=== PATIENT | female | born 1975 | race Caucasian/White ===

== ENCOUNTER 2018-06-07 10:08 | Emergency (ER) | payer SELFPAY ==
[~2018-06-07] VITALS: Ht 162.6 cm; Wt 59.0 kg
[~2018-06-07 10:08] MED LIST: ACHD5005 PO; ALPR.25T PO; ALPR.5T PO; AMOX500C2 PO; ARIP10TA2 PO; CIPR500T4 PO; CIPR500T78 PO; CPR500T PO; FLUO10CA19 PO; GABA300C PO; HYDR-3583 PO; HYDR-757 PO; HYDR1TAB PO; IBUP-30 PO; METH4TAB PO; MIRT7.5T8 PO; NITR100C PO; NITR100C3 PO; ONDA-42 SL; OXYC-12 PO; PARO10TA21 PO; PRD10T; PRM25T PO; PRO AIR INH; PROM25TA14 PO; PRX20T PO; SULF1TAB38 PO; TRAZ150T42 PO; TRAZ300T3 PO; TRAZODONE PO; ZLP10T PO; no home meds
--- OUTSIDE RECORDS SUMMARY | 2018-06-07 10:13 | XMS REPORT ---
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 Name Role Phone BILLY MEDINA Unavailable PROBLEMS Type Condition ICD9-CM Code OLR32-HR Code Onset Dates Condition Status SNOMED Code Problem Screening for malignant neoplasm of the cervix V76.2 Active 857400305 Problem Unspecified breast screening V76.10 Active 025578736 Problem Screening examination for venereal disease V74.5 Active 462159979 Problem Counseling on substance use and abuse V65.42 Active 899606601 Problem Special screening examination, human papillomavirus [HPV] V73.81 Active 615554950 Problem Acute sinusitis, unspecified 461.9 Active 77675862 Problem Routine gynecological examination V72.31 Active [id number] Problem Carpal tunnel syndrome 354.0 Active 03090010 Problem Multiple and unspecified open wound of upper limb, without mention of complication 884.0 Active 08605424 Problem Obsessive-compulsive disorders 300.3 Active 376076044 Problem Major depressive disorder, recurrent episode, in partial or unspecified remission 296.35 Active 82479534 Problem Generalized anxiety disorder 300.02 Active 22985678 Problem Moderate episode of recurrent major depressive disorder F33.1 Active 039837959 Problem Carpal tunnel syndrome, bilateral upper limbs G56.03 Active 36038286 Problem Shortness of breath 786.05 Active 755104854 Problem Dysuria 788.1 Active 88767414 Problem Papanicolaou smear of cervix with low grade squamous intraepithelial lesion (LGSIL) 795.03 Active 512740409 Problem Major depressive disorder, recurrent episode, moderate 296.32 Active 62183963 Problem Major depressive disorder, recurrent episode, severe, without mention of psychotic behavior 296.33 Active 88593836 Problem ASCUS with positive high 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.9 Active 161269924 Problem Methicillin resistant Staphylococcus aureus 041.12 Active 975042139 Problem Pain in joint, shoulder region 719.41 Active 670086499 Problem Cellulitis and abscess of unspecified site 682.9 Active 380539517 Problem Disturbance of skin sensation 782.0 Active 298410890 Problem Pain in soft tissues of limb 729.5 Active 31467869 Problem Unspecified vaginitis and vulvovaginitis 616.10 Active 956242951 Problem Unspecified inflammatory disease of female pelvic organs and tissues 614.9 Active 253556513 Problem Unspecified cellulitis and abscess of finger 681.00 Active 137332293 Problem Irregular menstrual cycle 626.4 Active 02830771 ALLERGIES Substance Reaction Event Type Date Status Morphine Sulfate vomiting Drug Allergy Dec, Active ENCOUNTERS Encounter Location Date Diagnosis [place] [address] [address] Dec, Left shoulder pain, unspecified chronicity M25.512 [place] [address] [address] Mar, Carpal tunnel syndrome, bilateral upper limbs G56.03 and Moderate episode of recurrent major depressive disorder F33.1 [facility] [address] [id number] Mar, Dental examination Z01.20 [place] [address] [address] Mar, Pain in right hand M79.641 [place] [address] [place] [id number] [place] [address] Oct, [place] [address] [place] [id number] [place] [address] Aug, Pyelonephritis N12 [facility] [address] [place] [id number] [place] [address] January, [place] [address] [address] January, [facility] [address] [place] [id number] [place] [address]- [address] January, ASCUS with positive high 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.9 and Leukorrhea 623.5 [facility] [address] [address] 14 Dec, 2014 [facility] [address] [place] [id number] [place] [address]- [address] Dec, [facility] [address], [place] [address] Nov, [facility] [place] [facility] [address] [place] [id number] [place] [address]- 8[address] Nov, [facility] [address] [address] 20[address] Nov, [facility] [address] [place] [id number] [place] [address]- 0[address] Nov, [facility] [address] [place] [id number] [place] [address]- 5140 Nov, [facility] [address], [place] [address] Nov, [facility] [address], [place] [address] 112[address] Oct, [facility] [address], [place] [address] 269[address] Oct, [facility] [address], [place] [address] Oct, [facility] [place] [facility] [address], [place] [address] Oct, [facility] [place] [facility] [address], [place] [address] Oct, [facility] [place] [facility] [address], [place] [address] 17[address] Oct, [facility] [place] [facility] [address], [place] [address] 9[address] Aug, [facility] [place] [facility] [address] [id number] [place] [address] 6871 Aug, [facility] [place] [facility] [address] [id number] [place] [address] Jun, [facility] [place] [facility] [address] [id number] [place] [address] 14 Jun, 2014 [facility] [place] [facility] [address] [id number] [place] [address]- [address] Jun, [facility] [place] [facility] [address] [id number] [place] [address] 8[address] Jun, [facility] [place] [facility] [address] [id number] [place] [address] Jun, [facility] [place] [facility] [address] [id number] [place] [address]- 9388 Jun, [facility] [place] [facility] [address] [id number] [place] [address]- 2438 May, [facility] [place] [facility] [address] [id number] [place] [address]- 4780 May, [facility] [place] [facility] [address] [id number] [place] [address]- 4261 Apr, [facility] [place] [facility] [address] [id number] [place] [address]- 6469 Apr, [facility] [place] [facility] [address] [id number] [place] [address]- 1105 Mar, [facility] [place] [facility] [address] [id number] [place] [address]- 5491 Mar, [facility] [place] [facility] [address] [id number] [place] [address]- 3212 Mar, [facility] [place] [facility] [address] [id number] [place] [address] Mar, [facility] [place] [facility] [address] [id number] [place] [address]- 5440 Feb, [facility] [place] [facility] [address] [id number] [place] [address]- 8236 Feb, [facility] [place] [facility] [address] [id number] [place] [address]- 4880 January, [facility] [place] [facility] [address] [id number] [place] [address] January, [facility] [place] [facility] [address] [id number] [place] [address]- 4443 January, [facility] [place] [facility] [address] [id number] [place] [address]- 1738 January, [facility] [place] [facility] [address] [id number] [place] [address]- 4417 January, [facility] [place] [facility] [address] [id number] [place] [address]- 1384 January, [facility] [place] [facility] [address] [id number] [place] [address]- 4264 Dec, [facility] [place] [facility] [address] [id number] [place] [address]- 3199 Dec, [facility] [place] [facility] [address] [id number] [place] [address]- 8999 Nov, [facility] [place] [facility] [address] [id number] [place] [address]- 7143 Nov, [facility] [place] [facility] [address] [id number] [address]- 5[address] Oct, [facility] [place] [facility] [address] [id number] [place] [address]- 5498 Oct, [facility] [place] [facility] [address] [id number] [place] [address]- 1084 Sep, [facility] [place] [facility] [address] [id number] [place] [address]- 3415 Sep, [facility] [place] [facility] [address] [id number] [place] [address]- 7430 Sep, [facility] [address] [id number] [place] [address]- 4045 Sep, [facility] [address] [id number] [place] [address] Aug, [facility] [address] [id number] [place] [address]- 3404 Aug, [facility] [address] [id number] [place] [address]- 1348 Jul, [facility] [address] [id number] [place] [address]- 2434 Jul, [facility] [address] [id number] [place] [address]- 6626 Jun, [facility] [address] [id number] [place] [address]- 2945 May, [facility] [address] [id number] [place] [address]- 1254 Mar, [facility] [address] [id number] [place] [address]- 7210 Feb, [facility] [address] [id number] [place] [address]- 9832 Feb, [facility] [address] [id number] [place] [address]- 4327 Feb, [facility] [address] [id number] [place] [address]- 2287 January, [facility] [place] [facility] [address] [id number] [place] [address]- 2579 30 Dec, 2012 [facility] [place] [facility] [address] [id number] [id number] [address] Dec, [facility] [address] [id number] [place] [address]- 2544 Dec, [facility] [place] [facility] [address] [id number] [place] [address]- 8232 09 Dec, 2012 [facility] [address] [id number] [place] [address]- 1236 Dec, [facility] [address] [id number] [place] [address]- 4221 Nov, [facility] [place] [facility] [address] [id number] [place] [address]- 1415 14 Oct, 2012 [facility] [address] [id number] [place] [address]- 5602 Sep, [facility] [address] [id number] [place] [address]- 9826 Sep, [facility] [address] [facility] [id number] [place] [address]- 0615 Sep, [facility] [address] [id number] [place] [address]- 2662 Sep, [facility] [address] [id number] [place] [address]- 5246 Aug, [facility] [address] [id number] [place] [address]- 1645 28 Aug, 2012 [facility] [address] [facility] [id number] [place] [address]- 6646 Aug, [facility] [place] [facility] [address] [id number], [place] [address]- 99[address] 27 Aug, 2012 [facility] [place] [facility] [address] [id number] [place] [address]- 8658 26 Aug, 2012 [facility] [place] [facility] [address] [id number] [place] [address]- 8129 18 Aug, 2012 [facility] [place] [facility] [address] [facility] [id number], [place] [address]- 36[address] 18 Aug, 2012 [facility] [place] [facility] [address] [id number], [place] [address]- 2286 18 Aug, 2012 [facility] [place] [facility] [address] [id number] [place] [address]- 4641 18 Aug, 2012 [facility] [place] [facility] [address] [id number] [place] [address]- 0906 Aug, [facility] [place] [facility] [address] [facility] [id number] [place] [address]- 6436 Aug, [facility] [place] [facility] [address] [id number] [place] [address]- 6553 Aug, [facility] [place] [facility] [address] [id number] [place] [address]- 7259 Aug, [facility] [place] [facility] [address] [id number] [place] [address]- 9179 Aug, [facility] [place] [facility] [address] [place] [id number] [address]- 1210 Aug, [facility] [place] [facility] [address] [facility] [id number] [place] [address]- 1717 Aug, [facility] [place] [facility] [address] [place] [id number] [address]- 3133 Jul, [facility] [place] [facility] [address] [facility] [id number] [place] [address]- 7368 Jul, [facility] [place] [facility] [address] [facility] [id number], [place] [address]- 8640 Jul, [facility] [place] [facility] [address] [facility] [id number], [place] [address]- 3088 Jul, [facility] [place] [facility] [address] [id number] [place] [address]- 4047 Jun, [facility] [place] [facility] [address] [facility] [id number] [place] [address]- 6694 30 May, 2012 [facility] [place] [facility] [address] [facility] [id number] [place] [address] 19 May, 2012 [facility] [place] [facility] [address] [id number] [place] [address]- 1076 14 May, 2012 [facility] [place] [facility] [address] [id number] [place] [address]- 6696 13 May, 2012 [facility] [place] [facility] [address] [id number] [place] [address] 2546 11 May, 2012 [facility] [place] [facility] [address] [id number] [place] [address]- 9236 10 May, 2012 [facility] [place] [facility] [address] [id number] [place] [address] 2549 08 May, 2012 [facility] [place] [facility] [address] [id number] [place] [address]- 0023 28 Apr, 2012 [facility] [place] [facility] [address] [id number] [place] [address]- 7240 Apr, [facility] [place] [facility] [address] [id number] [place] [address]- 9516 Apr, [facility] [place] [facility] [address] [id number] [place] [address]- 1435 Apr, [facility] [place] [facility] [address] [id number] [place] [address]- 5472 Mar, [facility] [place] [facility] [address] [id number] [place] [address]- 7419 Mar, [facility] [place] [facility] [address] [id number] [place] [address]- 7405 Mar, [facility] [place] [facility] [address] [id number] [place] [address] 2548 Mar, [facility] [place] [facility] [address] [id number] [place] [address]- 3696 16 Mar, 2012 [facility] [place] [facility] [address] [id number] [place] [address]- 2546 Mar, [facility] [place] [facility] [address] [id number] [place] [address]- 8562 Mar, [facility] [address] [facility] [id number], [place] [address]- 9205 January, [facility] [address] [facility] [id number], [place] [address]- 3336 Dec, [facility] [address] [facility] [id number], [place] [address]- 69[address] Dec, IMMUNIZATIONS No Known Immunizations SOCIAL HISTORY Never Assessed REASON FOR VISIT left shoulder pain, can't lift arm x 2-3 months -- michael harding PLAN OF CARE Activity Details Follow Up prn Reason: VITAL SIGNS Height 69 in 2017-12-20 Weight 129.0 lbs 2017-12-20 Temperature 98.0 degrees Fahrenheit 2017-12-20 Heart Rate 78 bpm 2017-12-20 Respiratory Rate 20 2017-12-20 BMI 19.05 kg/m2 2017-12-20 Blood pressure systolic 110 mmHg 2017-12-20 Blood pressure diastolic 68 mmHg 2017-12-20 MEDICATIONS Medication Instructions Dosage Frequency Start Date End Date Duration Status Gabapentin 100 mg Orally BID 1 cap daily for 1 week then 1 cap BID x 1 week then 1 cap TID 12h Mar, 30 days Not-Taking Diclofenac Sodium 75 MG Orally Twice a day 1 tablet with food or milk Dec, January, 30 day(s) Active Ibuprofen 200 MG Orally every 6 hrs 1 tablet as needed 6h Not- Taking Trazodone HCl 100 MG TAKE TWO TABLETS BY MOUTH AT BEDTIME 30 Not -Taking RESULTS Name Result Date Reference Range Xray : Shoulder, Left 2 view (IN HOUSE) 2017-12-20 PROCEDURES Procedure Date Ordered Result Body Site X-RAY EXAM OF SHOULDER December 20, 2017 INSTRUCTIONS MEDICATIONS ADMINISTERED No Known Medications MEDICAL (GENERAL) HISTORY Type Description Date Medical History Spinal cord injury - cervical spine Medical History Hepatitis C Surgical History tubal ligation Surgical History Biopsy x 2 Hospitalization History Kidney infections x 2 Hospitalization History Childbirth
--- OUTSIDE RECORDS SUMMARY | 2018-06-07 10:13 | XMS REPORT ---
Author Author MIRIAM VILLANUEVA [facility] Address [address] [place] [address] Care Team Providers Care Lift Team Technician Name Role Phone MIRIAM VILLANUEVA Unavailable PROBLEMS Type Condition ICD9-CM Code MOE41-BN Code Onset Dates Condition Status SNOMED Code Problem Screening for malignant neoplasm of the cervix V76.2 Active 124933364 Problem Unspecified breast screening V76.10 Active 757460669 Problem Screening examination for venereal disease V74.5 Active 860367515 Problem Counseling on substance use and abuse V65.42 Active 653732518 Problem Special screening examination, human papillomavirus [HPV] V73.81 Active 613745161 Problem Acute sinusitis, unspecified 461.9 Active 45974255 Problem Routine gynecological examination V72.31 Active [id number] Problem Carpal tunnel syndrome 354.0 Active 53437981 Problem Multiple and unspecified open wound of upper limb, without mention of complication 884.0 Active 01569895 Problem Obsessive-compulsive disorders 300.3 Active 179024646 Problem Major depressive disorder, recurrent episode, in partial or unspecified remission 296.35 Active 85167991 Problem Generalized anxiety disorder 300.02 Active 94996490 Problem Moderate episode of recurrent major depressive disorder F33.1 Active 194693192 Problem Carpal tunnel syndrome, bilateral upper limbs G56.03 Active 16677947 Problem Shortness of breath 786.05 Active 248142893 Problem Dysuria 788.1 Active 97323768 Problem Papanicolaou smear of cervix with low grade squamous intraepithelial lesion (LGSIL) 795.03 Active 542786280 Problem Major depressive disorder, recurrent episode, moderate 296.32 Active 89582601 Problem Major depressive disorder, recurrent episode, severe, without mention of psychotic behavior 296.33 Active 84785272 Problem ASCUS with positive high 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.9 Active 921063789 Problem Methicillin resistant Staphylococcus aureus 041.12 Active 617418903 Problem Pain in joint, shoulder region 719.41 Active 284044644 Problem Cellulitis and abscess of unspecified site 682.9 Active 590127210 Problem Disturbance of skin sensation 782.0 Active 121876579 Problem Pain in soft tissues of limb 729.5 Active 96485609 Problem Unspecified vaginitis and vulvovaginitis 616.10 Active 471560119 Problem Unspecified inflammatory disease of female pelvic organs and tissues 614.9 Active 035685681 Problem Unspecified cellulitis and abscess of finger 681.00 Active 361777458 Problem Irregular menstrual cycle 626.4 Active 89955611 ALLERGIES No Information ENCOUNTERS Encounter Location Date Diagnosis [place] [id number] [place] [address]- [address] Apr, [place] [address] [address] Apr, Other infective acute otitis externa of right ear H60.391 [place] [address] [address] Dec, Left shoulder pain, unspecified chronicity M25.512 [place] [address] [address] Mar, Carpal tunnel syndrome, bilateral upper limbs G56.03 and Moderate episode of recurrent major depressive disorder F33.1 [facility] [id number] [place] [id number] Mar, Dental examination Z01.20 [place] [id number] [place] [address]- 4135 Mar, Pain in right hand M79.641 [place] [id number] [place] [address] 14174- 4331 Oct, [place] [address] [address] Aug, Pyelonephritis N12 [place] [address] [address] January, [facility] [address] [address] January, [facility] [address] [id number] [address] January, ASCUS with positive high 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.9 and Leukorrhea 623.5 [facility] [address] [facility] [id number] [address] Dec, [facility] [address] [facility] [id number] [place] [address]75- 7903 Dec, [facility] [address] [facility] [id number] [place] [address] 729[address]- 2955 Nov, [facility] [id number] [place] [address] 85350- 0621 Nov, [facility] [id number] [place] [address] 63563- 6644 Nov, [facility] [id number] [place] [address] 74060- 7042 Nov, [facility] [id number] [address] 80[address] Nov, [facility] [id number] [place] [address] 69702- 7455 Nov, [facility] [id number] [address] 0566 Oct, [facility] [address] [address]- 7958 Oct, [facility] [address] [facility] [id number], [place] [address]- 8311 Oct, [facility] [address] [address] 7[address] Oct, [facility] [address] [id number] [address] Oct, [facility] [address] [address] 5097 Oct, [facility] [place] [facility] [address] [id number] [place] [address]- 0428 Aug, [facility] [place] [facility] [address] [id number] [place] [address]- 4541 Aug, [facility] [place] [facility] [address] [id number] [place] [address]- 2460 Jun, [facility] [place] [facility] [address] [id number] [place] [address]- 7905 14 Jun, 2014 [facility] [place] [facility] [address] [id number] [place] [address]- 7640 Jun, [facility] [place] [facility] [address] [id number] [place] [address]- 4464 Jun, [facility] [place] [facility] [address] [facility] [id number] [place] [address]- 9758 Jun, [facility] [place] [facility] [address] [id number] [place] [address]- 3635 Jun, [facility] [place] [facility] [address] [id number] [place] [address]- 1993 May, [facility] [place] [facility] [address] [id number] [place] [address]- 6981 May, [facility] [place] [facility] [address] [id number] [place] [address]- 9623 Apr, [facility] [place] [facility] [address] [id number] [place] [address]- 8400 Apr, [facility] [place] [facility] [address] [id number] [place] [address]- 0193 Mar, [facility] [place] [facility] [address] [id number] [place] [address]- 3727 Mar, [facility] [place] [facility] [address] [facility] [id number] [place] [address]- 5090 Mar, [facility] [place] [facility] [address] [id number] [place] [address]- 3373 Mar, [facility] [place] [facility] [address] [id number] [place] [address] Feb, [facility] [place] [facility] [address] [id number] [place] [address]- 3879 Feb, [facility] [place] [facility] [address] [id number] [place] [address]- 0082 January, [facility] [place] [facility] [address] [id number] [place] [address]- 3167 January, [facility] [place] [facility] [address] [id number] [place] [address]- 0987 January, [facility] [place] [facility] [address] [id number] [place] [address]- 9943 January, [facility] [place] [facility] [address] [id number] [place] [address]- 9364 January, [facility] [place] [facility] [address] [id number] [place] [address]- 4552 January, [facility] [place] [facility] [address] [id number] [place] [address]- 0094 Dec, [facility] [place] [facility] [address] [id number] [place] [address]- 6982 Dec, [facility] [place] [facility] [address] [id number] [place] [address]- 9155 Nov, [facility] [place] [facility] [address] [id number] [place] [address]- 8871 Nov, [facility] [place] [facility] [address] [id number] [place] [address]- 0318 Oct, [facility] [place] [facility] [address] [id number] [place] [address]- 4929 Oct, [facility] [place] [facility] [address] [id number] [place] [address]- 2089 Sep, [facility] [place] [facility] [address] [id number] [place] [address]- 7104 Sep, [facility] [place] [facility] [address] [id number] [place] [address]- 1336 Sep, [facility] [place] [facility] [address] [id number] [place] [address]- 3234 Sep, [facility] [place] [facility] [address] [id number] [place] [address]- 0567 Aug, [facility] [place] [facility] [address] [id number] [place] [address]- 7183 Aug, [facility] [place] [facility] [address] [id number] [place] [address]- 7411 Jul, [facility] [place] [facility] [address] [id number] [place] [address]- 1445 Jul, [facility] [place] [facility] [address] [id number] [place] [address]- 1942 Jun, [facility] [place] [facility] [address] [id number] [place] [address]- 5549 May, [facility] [place] [facility] [address] [id number] [place] [address]- 5301 Mar, [facility] [place] [facility] [address] [id number], [place] [address]- 6001 Feb, [facility] [place] [facility] [address] [id number], [place] [address] 2549 Feb, [facility] [place] [facility] [address] [id number] [place] [address]- 6421 Feb, [facility] [place] [facility] [address] [id number] [address]- 5316 January, [facility] [place] [facility] [address] [id number] [place] [address]- 2546 Dec, [facility] [place] [facility] [address] [id number] [place] [address]- 4671 15 Dec, 2012 [facility] [address] [id number] [place] [address]- 8336 15 Dec, 2012 [facility] [address] [id number] [place] [address]- 0486 09 Dec, 2012 [facility] [address] [id number] [place] [address]- 5236 Dec, [facility] [address] [id number] [place] [address]- 6746 Nov, [facility] [address] [id number] [place] [address]- 8667 Oct, [facility] [address] [id number] [place] [address]- 8691 Sep, [facility] [address] [id number] [place] [address]- 6299 Sep, [facility] [address] [id number] [place] [address]- 3254 Sep, [facility] [address] [id number] [place] [address]- 8341 Sep, [facility] [address] [id number] [place] [address]- 8823 Aug, [facility] [address] [id number] [place] [address] 2542 28 Aug, 2012 [facility] [address] [id number] [place] [address]- 5953 Aug, [facility] [address] [id number] [place] [address]- 1956 Aug, [facility] [address] [id number] [place] [address]- 8028 26 Aug, 2012 [facility] [address] [id number] [place] [address]- 1487 Aug, [facility] [place] [facility] [address] [id number] [place] [address]- 5402 Aug, [facility] [place] [facility] [address] [id number] [place] [address]- 9244 Aug, [facility] [place] [facility] [address] [id number] [place] [address]- 2613 Aug, [facility] [place] [facility] [address] [id number] [place] [address]- 4029 Aug, [facility] [place] [facility] [address] [id number] [place] [address]- 8942 Aug, [facility] [place] [facility] [address] [id number] [place] [address]- 1297 Aug, [facility] [place] [facility] [address] [facility] [id number] [place] [address]- 5788 Aug, [facility] [place] [facility] [address] [id number] [place] [address]- 3214 Aug, [facility] [place] [facility] [address] [facility] [id number] [place] [address]- 3113 Aug, [facility] [place] [facility] [address] [facility] [id number], [place] [address]- 9619 Aug, [facility] [place] [facility] [address] [facility] [id number], [place] [address]- [address] Jul, [facility] [place] [facility] [address] [id number], [place] [address]- 8528 Jul, [facility] [place] [facility] [address] [id number], [place] [address]- 6918 Jul, [facility] [place] [facility] [address] [id number], [place] [address]- 8109 Jul, [facility] [place] [facility] [address] [facility] [id number] [address] Jun, [facility] [place] [facility] [address] [id number], [place] [address]- 7812 30 May, 2011 [facility] [place] [facility] [address] [id number] [place] [address] 2546 19 May, 2011 [facility] [place] [facility] [address] [id number] [place] [address] 2546 14 May, 2012 [facility] [place] [facility] [address] [id number] [place] [address] 2546 13 May, 2012 [facility] [place] [facility] [address] [id number] [place] [address] 2546 11 May, 2012 [facility] [place] [facility] [address] [id number] [place] [address]- 8859 10 May, 2012 [facility] [place] [facility] [address] [id number] [place] [address]- 6326 08 May, 2012 [facility] [place] [facility] [address] [id number] [place] [address]- 0294 28 Apr, 2012 [facility] [place] [facility] [address] [id number] [place] [address]- 8067 Apr, [facility] [place] [facility] [address] [id number] [place] [address]- 8641 Apr, [facility] [place] [facility] [address] [id number] [place] [address]- 8044 Apr, [facility] [place] [facility] [address] [id number] [place] [address]- 6148 Mar, [facility] [place] [facility] [address] [id number] [place] [address]- 3628 Mar, [facility] [place] [facility] [address] [id number] [place] [address]- 8602 Mar, [facility] [place] [facility] [address] [id number] [place] [address]- 6193 Mar, [facility] [place] [facility] [address] [id number] [place] [address]- 2843 16 Mar, 2012 [facility] [place] [facility] [address] [facility] [id number] [place] [address]- 0316 Mar, [facility] [address] [facility] [id number] [address]68 Mar, [facility] [address] [facility] [id number], [place] [address]- 8026 January, [facility] [address] [facility] [id number][place] [address] Dec, [facility] [address] [facility] [id number], [place] [address]- [address] Dec, IMMUNIZATIONS No Known Immunizations SOCIAL HISTORY Never Assessed REASON FOR VISIT Requests return call PLAN OF CARE VITAL SIGNS MEDICATIONS Unknown Medications RESULTS No Results PROCEDURES No Known procedures INSTRUCTIONS MEDICATIONS ADMINISTERED No Known Medications MEDICAL (GENERAL) HISTORY Type Description Date Medical History Spinal cord injury - cervical spine Medical History Hepatitis C Surgical History tubal ligation Surgical History Biopsy x 2 Hospitalization History Kidney infections x 2 Hospitalization History Childbirth
--- OUTSIDE RECORDS SUMMARY | 2018-06-07 10:14 | XMS REPORT ---
Author Author MERY SUMMERS [facility] Address [address] [place] [address] Care Team Providers Care Client Customer Manager Name Role Phone MERY SUMMERS Unavailable PROBLEMS Type Condition ICD9-CM Code DRZ25-RK Code Onset Dates Condition Status SNOMED Code Problem Screening for malignant neoplasm of the cervix V76.2 Active 516214008 Problem Unspecified breast screening V76.10 Active 694473501 Problem Screening examination for venereal disease V74.5 Active 680408965 Problem Counseling on substance use and abuse V65.42 Active 905069804 Problem Unspecified inflammatory disease of female pelvic organs and tissues 614.9 Active 854319603 Problem Special screening examination, human papillomavirus [HPV] V73.81 Active 531117557 Problem Acute sinusitis, unspecified 461.9 Active 01034409 Problem Routine gynecological examination V72.31 Active 836671089770913 Problem Carpal tunnel syndrome 354.0 Active 67123602 Problem Generalized anxiety disorder 300.02 Active 44417476 Problem Obsessive-compulsive disorders 300.3 Active 198239399 Problem Carpal tunnel syndrome, bilateral upper limbs G56.03 Active 74294170 Problem ASCUS with positive high 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.9 Active 043516232 Problem Dysuria 788.1 Active 28774733 Problem Papanicolaou smear of cervix with low grade squamous intraepithelial lesion (LGSIL) 795.03 Active 538812942 Problem Multiple and unspecified open wound of upper limb, without mention of complication 884.0 Active 73416235 Problem Major depressive disorder, recurrent episode, severe, without mention of psychotic behavior 296.33 Active 13760814 Problem Major depressive disorder, recurrent episode, in partial or unspecified remission 296.35 Active 85856957 Problem Methicillin resistant Staphylococcus aureus 041.12 Active 987169645 Problem Major depressive disorder, recurrent episode, moderate 296.32 Active 54589102 Problem Pain in soft tissues of limb 729.5 Active 04275568 Problem Pain in joint, shoulder region 719.41 Active 087889071 Problem Shortness of breath 786.05 Active 947647662 Problem Disturbance of skin sensation 782.0 Active 611065789 Problem Irregular menstrual cycle 626.4 Active 74538969 Problem Unspecified vaginitis and vulvovaginitis 616.10 Active 756186436 Problem Cellulitis and abscess of unspecified site 682.9 Active 406831814 Problem Unspecified cellulitis and abscess of finger 681.00 Active 595342768 ALLERGIES Unknown Allergies SOCIAL HISTORY No smoking Hx information available PLAN OF CARE VITAL SIGNS MEDICATIONS Unknown Medications RESULTS No Results PROCEDURES No Known procedures IMMUNIZATIONS No Known Immunizations
--- OUTSIDE RECORDS SUMMARY | 2018-06-07 10:14 | XMS REPORT ---
Author MIRIAM Wei [facility] eClinical[employer] Address Unknown Phone Unavailable Care Team Providers Care Inspector Metal Can Name Role Phone MIRIAM VILLANUEVA CP Unavailable Allergies, Adverse Reactions, Alerts Substance Reaction Event Type Morphine Sulfate vomiting Drug Allergy Problems Problem Type Condition Code Onset Dates Condition Status Assessment Pyelonephritis N12 Active Problem Pain in soft tissues of limb 729.5 Active Problem Disturbance of skin sensation 782.0 Active Problem Methicillin resistant Staphylococcus aureus 041.12 Active Problem Unspecified vaginitis and vulvovaginitis 616.10 Active Problem Pain in joint, shoulder region 719.41 Active Problem Multiple and unspecified open wound of upper limb, without mention of complication 884.0 Active Problem Carpal tunnel syndrome 354.0 Active Problem Major depressive disorder, recurrent episode, severe, without mention of psychotic behavior 296.33 Active Problem Counseling on substance use and abuse V65.42 Active Problem Major depressive disorder, recurrent episode, moderate 296.32 Active Problem Obsessive-compulsive disorders 300.3 Active Problem Unspecified inflammatory disease of female pelvic organs and tissues 614.9 Active Problem Irregular menstrual cycle 626.4 Active Problem ASCUS with positive high 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.9 Active Problem Major depressive disorder, recurrent episode, in partial or unspecified remission 296.35 Active Problem Shortness of breath 786.05 Active Problem Papanicolaou smear of cervix with low grade squamous intraepithelial lesion (LGSIL) 795.03 Active Problem Cellulitis and abscess of unspecified site 682.9 Active Problem Generalized anxiety disorder 300.02 Active Problem Unspecified breast screening V76.10 Active Problem Dysuria 788.1 Active Problem Screening examination for venereal disease V74.5 Active Problem Special screening examination, human papillomavirus [HPV] V73.81 Active Problem Acute sinusitis, unspecified 461.9 Active Problem Screening for malignant neoplasm of the cervix V76.2 Active Problem Routine gynecological examination V72.31 Active Problem Unspecified cellulitis and abscess of finger 681.00 Active Medications Medication Code System Code Instructions Start Date End Date Status Dosage Ibuprofen [facility] [address]-19 200 MG Orally every 6 hrs 1 tablet as needed Trazodone HCl [facility] [id number] 100 MG TAKE TWO TABLETS BY MOUTH AT BEDTIME Procedures Procedure Coding System Code Date Office Visit, Est Pt., Level 3 CPT-4 19796 Sep 06, 2015 URINALYSIS, AUTO, W/O SCOPE CPT-4 57476 Sep 06, 2015 Vital Signs Date/Time: Sep 06, 2015 Temperature 98.4 F Weight 127.0 lbs Height 69 in BMI 18.75 Index Blood Pressure Diastolic 86 mmHg Blood Pressure Systolic 140 mmHg Cardiac Monitoring Heart Rate 76 bpm Results No Known Results Summary Purpose eClinicalWorks Submission
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
--- OUTSIDE RECORDS SUMMARY | 2018-06-07 10:14 | XMS REPORT ---
Author Author NEENA SMITH [facility] Address Unknown Care Team Providers Care Fraud Manager Name Role Phone NEENA SMITH Unavailable PROBLEMS Type Condition ICD9-CM Code TYV28-PQ Code Onset Dates Condition Status SNOMED Code Problem Screening for malignant neoplasm of the cervix V76.2 Active 411200012 Problem Unspecified breast screening V76.10 Active 530389134 Problem Screening examination for venereal disease V74.5 Active 559440493 Problem Counseling on substance use and abuse V65.42 Active 603118073 Problem Special screening examination, human papillomavirus [HPV] V73.81 Active 999101457 Problem Acute sinusitis, unspecified 461.9 Active 13874443 Problem Routine gynecological examination V72.31 Active 044055930905999 Problem Carpal tunnel syndrome 354.0 Active 22880540 Problem Multiple and unspecified open wound of upper limb, without mention of complication 884.0 Active 98496930 Problem Obsessive-compulsive disorders 300.3 Active 992667842 Problem Major depressive disorder, recurrent episode, in partial or unspecified remission 296.35 Active 26839632 Problem Generalized anxiety disorder 300.02 Active 55519524 Problem Moderate episode of recurrent major depressive disorder F33.1 Active 411293862 Problem Carpal tunnel syndrome, bilateral upper limbs G56.03 Active 94411749 Problem Shortness of breath 786.05 Active 151669815 Problem Dysuria 788.1 Active 54559233 Problem Papanicolaou smear of cervix with low grade squamous intraepithelial lesion (LGSIL) 795.03 Active 058164356 Problem Major depressive disorder, recurrent episode, moderate 296.32 Active 88274791 Problem Major depressive disorder, recurrent episode, severe, without mention of psychotic behavior 296.33 Active 37480728 Problem ASCUS with positive high 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.9 Active 087111693 Problem Methicillin resistant Staphylococcus aureus 041.12 Active 527063783 Problem Pain in joint, shoulder region 719.41 Active 414428071 Problem Cellulitis and abscess of unspecified site 682.9 Active 912370981 Problem Disturbance of skin sensation 782.0 Active 051391325 Problem Pain in soft tissues of limb 729.5 Active 58313635 Problem Unspecified vaginitis and vulvovaginitis 616.10 Active 264680269 Problem Unspecified inflammatory disease of female pelvic organs and tissues 614.9 Active 729553936 Problem Unspecified cellulitis and abscess of finger 681.00 Active 840525861 Problem Irregular menstrual cycle 626.4 Active 01614187 ALLERGIES Substance Reaction Event Type Date Status Morphine Sulfate vomiting Drug Allergy Mar, Active ENCOUNTERS Encounter Location Date Diagnosis [facility] [id number] [place] [address]- [address] Mar, Carpal tunnel syndrome, bilateral upper limbs G56.03 and Moderate episode of recurrent major depressive disorder F33.1 [facility] [id number] [place] [id number] Mar, Dental examination Z01.20 [facility] [address] [address] Mar, Pain in right hand M79.641 [facility] [id number] [place] [address] 78042- 4240 Oct, [facility] [id number] [place] [address] 80[address]- 7210 Aug, Pyelonephritis N12 [facility] [id number] [place] [address]- 5802 January, [facility] [id number] [place] [address]- 9702 January, [facility] [id number] [place] [address] 67[address]- 7566 January, ASCUS with positive high 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.9 and Leukorrhea 623.5 [facility] [id number] [place] [address] 79840- 2430 Dec, [facility] [address] [address] Dec, [facility] [place] [facility] [address] [id number] [place] [address]37 Nov, [facility] [place] [facility] [address] [id number] [place] [address] 5780 Nov, [facility] [place] [facility] [address] [id number] [place] [address]- 9257 Nov, [facility] [place] [facility] [address] [id number] [place] [address] Nov, [facility] [place] [facility] [address] [id number] [place] [address]- 2899 Nov, [facility] [place] [facility] [address] [id number] [place] [address]- 3989 Nov, [facility] [place] [facility] [address] [facility] [id number] [place] [address]- 5675 Oct, [facility] [place] [facility] [address] [id number] [place] [address]- 7628 Oct, [facility] [place] [facility] [address] [id number] [place] [address]- 5893 Oct, [facility] [place] [facility] [address] [facility] [id number] [place] [address]- 3823 Oct, [facility] [place] [facility] [address] [id number] [place] [address]- 3536 Oct, [facility] [place] [facility] [address] [id number] [place] [address]- 5362 Oct, [facility] [place] [facility] [address] [id number] [place] [address]- 7305 Aug, [facility] [place] [facility] [address] [facility] [id number] [place] [address] Aug, [facility] [place] [facility] [address] [facility] [id number] [place] [address]- 2818 Jun, [facility] [place] [facility] [address] [id number] [place] [address]- 9840 14 Jun, 2014 [facility] [place] [facility] [address] [id number] [place] [address]- 9937 Jun, [facility] [place] [facility] [address] [id number] [place] [address]- 3217 13 Jun, 2014 [facility] [place] [facility] [address] [id number] [place] [address]- 2172 Jun, [facility] [place] [facility] [address] [id number] [place] [address]- 2929 Jun, [facility] [place] [facility] [address] [id number] [place] [address]- 9760 May, [facility] [place] [facility] [address] [id number] [place] [address]- 9902 May, [facility] [place] [facility] [address] [id number] [place] [address]- 4720 Apr, [facility] [place] [facility] [address] [id number] [place] [address]- 6394 Apr, [facility] [place] [facility] [address] [id number] [place] [address]- 3409 Mar, [facility] [place] [facility] [address] [id number] [place] [address]- 1718 Mar, [facility] [place] [facility] [address] [id number] [place] [address]- 6509 Mar, [facility] [place] [facility] [address] [id number] [place] [address] 1936 Mar, [facility] [place] [facility] [address] [id number] [place] [address]- 9726 Feb, [facility] [place] [facility] [address] [id number] [place] [address]- 2256 Feb, [facility] [place] [facility] [address] [id number] [place] [address] January, [facility] [address] [id number] [place] [address]- 8822 January, [facility] [place] [facility] [address] [id number] [place] [address]- 4423 January, [facility] [place] [facility] [address] [id number] [place] [address]- 4548 January, [facility] [place] [facility] [address] [id number] [place] [address]- 7778 January, [facility] [place] [facility] [address] [id number] [place] [address]- 0707 January, [facility] [place] [facility] [address] [id number] [place] [address]- 6597 Dec, [facility] [place] [facility] [address] [id number] [place] [address]- 5837 Dec, [facility] [place] [facility] [address] [id number] [place] [address]- 1662 Nov, [facility] [place] [facility] [address] [id number] [place] [address]- 7438 Nov, [facility] [place] [facility] [address] [id number] [place] [address]- 7111 Oct, [facility] [place] [facility] [address] [id number] [place] [address]- 6372 Oct, [facility] [place] [facility] [address] [id number] [place] [address]- 0636 Sep, [facility] [place] [facility] [address] [id number] [place] [address]- 0992 Sep, [facility] [place] [facility] [address] [id number] [place] [address]- 1537 Sep, [facility] [place] [facility] [address] [id number] [place] [address]- 1954 Sep, [facility] [place] [facility] [address] [id number] [place] [address]- 0442 Aug, [facility] [address] [id number] [place] [address]- 9458 Aug, [facility] [place] [facility] [address] [id number] [place] [address]- 4388 Jul, [facility] [address] [id number] [place] [address]- 1861 Jul, [facility] [place] [facility] [address] [id number] [place] [address]- 6943 Jun, [facility] [address] [id number] [place] [address]- 4100 May, [facility] [place] [facility] [address] [id number] [place] [address]- 3427 Mar, [facility] [address] [id number] [place] [address]- 6872 Feb, [facility] [place] [facility] [address] [id number] [place] [address]- 4329 Feb, [facility] [place] [facility] [address] [id number] [place] [address]- 0526 Feb, [facility] [place] [facility] [address] [facility] [id number] [place] [address]- 7057 January, [facility] [place] [facility] [address] [id number] [place] [address]- 4755 Dec, [facility] [place] [facility] [address] [id number] [place] [address]- 6190 Dec, [facility] [place] [facility] [address] [id number] [place] [address]- 8275 Dec, [facility] [place] [facility] [address] [id number] [place] [address]- 8214 Dec, [facility] [place] [facility] [address] [id number] [place] [address]- 1722 Dec, [facility] [place] [facility] [address] [id number] [place] [address]- 2413 Nov, [facility] [address] [id number] [place] [address]- 1418 14 Oct, 2012 [facility] [place] [facility] [address] [id number] [place] [address]- 0502 Sep, [facility] [address] [id number] [place] [address]- 9342 Sep, [facility] [address] [id number] [place] [address]- 4164 Sep, [facility] [address] [id number] [place] [address]- 1396 Sep, [facility] [address] [id number] [place] [address]- 4400 Aug, [facility] [address] [id number] [place] [address]- 1130 28 Aug, 2012 [facility] [address] [id number] [place] [address]- 2963 Aug, [facility] [address] [id number] [place] [address]- 2174 Aug, [facility] [address] [id number] [place] [address]- 2304 26 Aug, 2012 [facility] [address] [id number] [place] [address]- 0600 18 Aug, 2012 [facility] [place] [facility] [address] [id number] [place] [address]- 2614 18 Aug, 2012 [facility] [place] [facility] [address] [id number] [place] [address]- 4275 Aug, [facility] [place] [facility] [address] [id number] [place] [address]305 18 Aug, 2012 [facility] [place] [facility] [address] [id number] [address]- 1683 Aug, [facility] [place] [facility] [address] [id number] [place] [address]- 5164 11 Aug, 2012 [facility] [place] [facility] [address] [id number] [place] [address]30 Aug, [facility] [place] [facility] [address] [facility] [id number] [place] [address]- 2762 Aug, [facility] [place] [facility] [address] [id number] [place] [address]- 8261 Aug, [facility] [place] [facility] [address] [id number] [place] [address]- 6490 Aug, [facility] [place] [facility] [address] [id number] [place] [address]- 3111 Aug, [facility] [place] [facility] [address] [id number] [place] [address]- 4490 Jul, [facility] [place] [facility] [address] [id number] [place] [address]- 8879 Jul, [facility] [place] [facility] [address] [id number] [place] [address]- 6938 Jul, [facility] [place] [facility] [address] [id number] [place] [address]- 9840 Jul, [facility] [place] [facility] [address] [id number], [place] [address]- 1649 03 Jun, 2012 [facility] [place] [facility] [address] [id number], [place] [address]- 5608 30 Sep2011 [facility] [place] [facility] [address] [id number] [place] [address]- 7909 19 Sep2011 [facility] [place] [facility] [address] [facility] [id number] [place] [address]- 5317 14 Sep2011 [facility] [place] [facility] [address] [id number] [place] [address]- 4960 13 Sep2011 [facility] [place] [facility] [address] [id number] [place] [address]- 6438 11 May, 2012 [facility] [address] [id number] [place] [address]- 2574 10 May, 2012 [facility] [place] [facility] [address] [id number] [place] [address]- 2276 May, [facility] [address] [id number] [place] [address]- 9306 Apr, [facility] [place] [facility] [address] [id number] [place] [address]- 5211 Apr, [facility] [address] [id number] [place] [address]- 3783 Apr, [facility] [address] [id number] [place] [address]- 5876 Apr, [facility] [address] [id number] [place] [address]- 1803 Mar, [facility] [address] [id number] [place] [address]- 2502 Mar, [facility] [address] [id number] [place] [address]- 2274 Mar, [facility] [address] [id number] [place] [address]- 9108 Mar, [facility] [place] [facility] [address] [id number] [place] [address]- 7923 Mar, [facility] [address] [id number] [place] [address]- 9044 Mar, [facility] [place] [facility] [address] [id number] [place] [address]- 1922 Mar, [facility] [place] [facility] [address] [id number] [place] [address]- 8736 January, [facility] [place] [facility] [address] [id number] [place] [address]- 6996 Dec, [facility] [address] [facility] [address] [id number] [place] [address]- [address]01 Dec, IMMUNIZATIONS No Known Immunizations SOCIAL HISTORY Never Assessed REASON FOR VISIT rebeca PLAN OF CARE VITAL SIGNS MEDICATIONS Medication Instructions Dosage Frequency Start Date End Date Duration Status Ibuprofen 800 MG Orally Three times a day 1 tablet with food or milk 8h Mar, Apr, 30 day(s) Active Azithromycin 250 MG Orally Once a day 2 tablets on the first day, then 1 tablet daily for 4 days 24h Mar, Mar, 5 days Active RESULTS No Results PROCEDURES Procedure Date Ordered Result Body Site LTD ORAL EVALUATION - PROBLEM FOCUS March 29, 2017 INTRAORL-PERIAPICAL EA ADD FILM March 29, 2017 INTRAORL-PERIAPICAL EA ADD FILM March 29, 2017 INTRAORL-PERIAPICAL EA ADD FILM March 29, 2017 INSTRUCTIONS MEDICATIONS ADMINISTERED No Known Medications MEDICAL (GENERAL) HISTORY Type Description Date Medical History Spinal cord injury - cervical spine Medical History Hepatitis C Surgical History tubal ligation Surgical History Biopsy x 2 Hospitalization History Kidney infections x 2 Hospitalization History Childbirth
--- OUTSIDE RECORDS SUMMARY | 2018-06-07 10:15 | XMS REPORT ---
Author Author ALLIEMARIAELENA Organization [facility] Address [address] [place] [address] Care Team Providers Care Litigation Secretary Name Role Phone MARIAELENA KELLEY Unavailable PROBLEMS Type Condition ICD9-CM Code RJM49-KE Code Onset Dates Condition Status SNOMED Code Problem Screening for malignant neoplasm of the cervix V76.2 Active 740287100 Problem Unspecified breast screening V76.10 Active 795930115 Problem Screening examination for venereal disease V74.5 Active 104385210 Problem Counseling on substance use and abuse V65.42 Active 839362957 Problem Special screening examination, human papillomavirus [HPV] V73.81 Active 743167906 Problem Acute sinusitis, unspecified 461.9 Active 76551737 Problem Routine gynecological examination V72.31 Active [id number] Problem Carpal tunnel syndrome 354.0 Active 64209241 Problem Multiple and unspecified open wound of upper limb, without mention of complication 884.0 Active 24461535 Problem Obsessive-compulsive disorders 300.3 Active 624860424 Problem Major depressive disorder, recurrent episode, in partial or unspecified remission 296.35 Active 35045964 Problem Generalized anxiety disorder 300.02 Active 49981897 Problem Moderate episode of recurrent major depressive disorder F33.1 Active 387141062 Problem Carpal tunnel syndrome, bilateral upper limbs G56.03 Active 68533275 Problem Shortness of breath 786.05 Active 297117100 Problem Dysuria 788.1 Active 62380207 Problem Papanicolaou smear of cervix with low grade squamous intraepithelial lesion (LGSIL) 795.03 Active 857976431 Problem Major depressive disorder, recurrent episode, moderate 296.32 Active 70145294 Problem Major depressive disorder, recurrent episode, severe, without mention of psychotic behavior 296.33 Active 26906490 Problem ASCUS with positive high 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.9 Active 761330092 Problem Methicillin resistant Staphylococcus aureus 041.12 Active 334987994 Problem Pain in joint, shoulder region 719.41 Active 448115490 Problem Cellulitis and abscess of unspecified site 682.9 Active 150240226 Problem Disturbance of skin sensation 782.0 Active 353341051 Problem Pain in soft tissues of limb 729.5 Active 83745025 Problem Unspecified vaginitis and vulvovaginitis 616.10 Active 050974204 Problem Unspecified inflammatory disease of female pelvic organs and tissues 614.9 Active 400162818 Problem Unspecified cellulitis and abscess of finger 681.00 Active 429000320 Problem Irregular menstrual cycle 626.4 Active 32323551 ALLERGIES Substance Reaction Event Type Date Status Morphine Sulfate vomiting Drug Allergy Mar, Active ENCOUNTERS Encounter Location Date Diagnosis [facility] [address] [address] Mar, Carpal tunnel syndrome, bilateral upper limbs G56.03 and Moderate episode of recurrent major depressive disorder F33.1 [facility] [address] [id number] Mar, Dental examination Z01.20 [facility] [address] [address] Mar, Pain in right hand M79.641 [facility] [address] [address] Oct, [facility] [id number] [place] [address] Aug, Pyelonephritis N12 [facility] [id number] [place] [address] January, [facility] [id number] [place] [address] January, [facility] [address] [address] January, ASCUS with positive high 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.9 and Leukorrhea 623.5 [facility] [address] [address] Dec, [facility] [address] [place] [address] Dec, [facility] [place] [facility] [address] [id number] [place] [address] Nov, [facility] [place] [facility] [address] [id number] [place] [address] Nov, [facility] [place] [facility] [address] [facility] [id number] [place] [address] Nov, [facility] [place] [facility] [address] [id number] [place] [address] Nov, [facility] [place] [facility] [address] [id number] [place] [address] Nov, [facility] [place] [facility] [address] [facility] [id number] [place] [address] 16[address] Nov, [facility] [place] [facility] [address] [facility] [id number] [place] [address] Oct, [facility] [place] [facility] [address] [facility] [id number] [place] [address] Oct, [facility] [place] [facility] [address] [facility] [id number] [place] [address] Oct, [facility] [place] [facility] [address] [facility] [id number] [place] [address] Oct, [facility] [place] [facility] [address] [facility] [id number] [place] [address] 2009 Oct, [facility] [place] [facility] [address] [facility] [id number] [place] [address] Oct, [facility] [place] [facility] [address] [facility] [id number] [place] [address] 7652 Aug, [facility] [place] [facility] [address] [facility] [id number] [place] [address]- [address]66 Aug, [facility] [place] [facility] [address] [facility] [id number] [place] [address] Jun, [facility] [place] [facility] [address] [id number] [place] [address] 14 Jun, 2014 [facility] [place] [facility] [address] [id number] [place] [address] Jun, [facility] [place] [facility] [address] [id number] [place] [address] 8[address] Jun, [facility] [place] [facility] [address] [id number] [place] [address] 2414 Jun, [facility] [place] [facility] [address] [id number] [place] [address]- 7[address] Jun, [facility] [place] [facility] [address] [id number] [place] [address] May, [facility] [place] [facility] [address] [id number] [place] [address] May, [facility] [place] [facility] [address] [id number] [place] [address] Apr, [facility] [place] [facility] [address] [id number] [place] [address]- 9437 Apr, [facility] [place] [facility] [address] [id number] [place] [address] Mar, [facility] [place] [facility] [address] [id number] [place] [address] Mar, [facility] [place] [facility] [address] [id number] [place] [address]- 1297 Mar, [facility] [place] [facility] [address] [id number] [place] [address] 8527 Mar, [facility] [place] [facility] [address] [id number] [place] [address] Feb, [facility] [place] [facility] [address] [id number] [place] [address] Feb, [facility] [place] [facility] [address] [id number] [place] [address] 69[address] January, [facility] [address] [id number] [place] [address]- 58[address] January, [facility] [place] [facility] [address] [id number] [place] [address]- 6916 January, [facility] [place] [facility] [address] [id number] [place] [address]- 0144 January, [facility] [place] [facility] [address] [id number] [place] [address]- [address] January, [facility] [place] [facility] [address] [id number] [place] [address]- 6[address] January, [facility] [place] [facility] [address] [id number] [place] [address]- [address] Dec, [facility] [address] [id number] [place] [address]- [address] Dec, [facility] [place] [facility] [address] [id number] [place] [address]- [address] Nov, [facility] [place] [facility] [address] [id number] [place] [address]- 69[address] Nov, [facility] [place] [facility] [address] [id number] [place] [address]- 14[address] Oct, [facility] [place] [facility] [address] [id number] [place] [address]- [address] Oct, [facility] [place] [facility] [address] [id number] [place] [address]- 67[address] Sep, [facility] [place] [facility] [address] [id number] [place] [address]- [address] Sep, [facility] [place] [facility] [address] [id number] [place] [address]- 57[address] Sep, [facility] [place] [facility] [address] [id number] [place] [address]- 4858 Sep, [facility] [place] [facility] [address] [id number] [place] [address]- [address] Aug, [facility] [place] [facility] [address] [id number] [place] [address]- 135[address] Aug, [facility] [place] [facility] [address] [id number] [place] [address]- 5852 Jul, [facility] [place] [facility] [address] [id number] [place] [address]- 7994 Jul, [facility] [place] [facility] [address] [id number] [place] [address]- 7234 Jun, [facility] [place] [facility] [address] [id number] [place] [address]- 54[address] May, [facility] [place] [facility] [address] [id number] [place] [address]- 16[address] Mar, [facility] [place] [facility] [address] [id number] [place] [address]- 2456 Feb, [facility] [place] [facility] [address] [id number] [place] [address]- 0076 Feb, [facility] [place] [facility] [address] [id number] [place] [address]- 65[address] Feb, [facility] [place] [facility] [address] [id number] [place] [address]- 5678 January, [facility] [place] [facility] [address] [id number] [place] [address]- 4224 Dec, [facility] [place] [facility] [address] [id number] [place] [address]- 7044 Dec, [facility] [place] [facility] [address] [id number] [place] [address]- 6846 Dec, [facility] [place] [facility] [address] [id number] [place] [address]- 1391 Dec, [facility] [place] [facility] [address] [id number] [place] [address]- [address] Dec, [facility] [address] [id number] [place] [address]- 4[address] Nov, [facility] [address] [id number] [place] [address]- 0206 Oct, [facility] [address] [id number] [place] [address]- 8053 Sep, [facility] [place] [facility] [address] [id number] [place] [address]- 0507 Sep, [facility] [address] [id number] [place] [address]- 3568 Sep, [facility] [address] [id number] [place] [address]- 6994 Sep, [facility] [address] [id number] [place] [address] Aug, [facility] [place] [facility] [address] [id number] [place] [address]- 9486 28 Aug, 2012 [facility] [address] [id number] [place] [address]- 8618 Aug, [facility] [address] [id number] [place] [address]- 8444 Aug, [facility] [address] [id number] [place] [address]- 5370 26 Aug, 2012 [facility] [place] [facility] [address] [id number] [place] [address]- 7986 18 Aug, 2012 [facility] [place] [facility] [address] [id number] [place] [address]- 2180 18 Aug, 2012 [facility] [place] [facility] [address] [id number] [place] [address] 18 Aug, 2012 [facility] [place] [facility] [address] [id number] [place] [address] Aug, [facility] [place] [facility] [address] [id number] [place] [address]- 7296 11 Aug, 2012 [facility] [address] [id number] [place] [address]- 9772 Aug, [facility] [place] [facility] [address] [id number] [place] [address]- 1956 Aug, [facility] [address] [id number] [place] [address]- 6592 Aug, [facility] [place] [facility] [address] [id number] [place] [address]- 7237 Aug, [facility] [address] [id number] [place] [address]- 9788 Aug, [facility] [address] [id number] [place] [address]- 4281 Aug, [facility] [place] [facility] [address] [id number] [place] [address]- 3113 Jul, [facility] [address] [id number] [place] [address]- 55[address] Jul, [facility] [place] [facility] [address] [id number] [place] [address]- 3634 Jul, [facility] [address] [id number] [place] [address]- [address]305 05 Jul, 2012 [facility] [place] [facility] [address] [id number] [place] [address]- 4865 03 Jun, 2012 [facility] [place] [facility] [address] [id number] [place] [address]- 4847 30 May, 2012 [facility] [place] [facility] [address] [id number] [place] [address]- 0936 19 Sep2011 [facility] [place] [facility] [address] [id number] [place] [address]- 2246 14 May, 2012 [facility] [place] [facility] [address] [id number] [place] [address]- 7865 13 May, 2012 [facility] [place] [facility] [address] [id number] [place] [address]- 68[address] 11 May, 2012 [facility] [place] [facility] [address] [id number] [place] [address]- 2956 10 May, 2012 [facility] [place] [facility] [address] [id number] [place] [address]- 5703 08 May, 2012 [facility] [place] [facility] [address] [id number] [place] [address]- 2920 Apr, [facility] [place] [facility] [address] [id number] [place] [address]- 0597 Apr, [facility] [place] [facility] [address] [id number] [place] [address]- 4733 Apr, [facility] [place] [facility] [address] [id number] [place] [address]- 9166 Apr, [facility] [place] [facility] [address] [id number] [place] [address]- 5700 Mar, [facility] [place] [facility] [address] [id number] [place] [address]- 3248 Mar, [facility] [place] [facility] [address] [id number] [place] [address]- 4856 Mar, [facility] [place] [facility] [address] [id number] [place] [address]- 4119 Mar, [facility] [place] [facility] [address] [id number] [place] [address]- 2117 Mar, [facility] [place] [facility] [address] [id number] [place] [address]- 7320 Mar, [facility] [place] [facility] [address] [id number] [place] [address]- 1146 Mar, [facility] [place] [facility] [address] [id number] [place] [address]- 9484 January, [facility] [place] [facility] [address] [id number] [place] [address]- 55[address] Dec, [facility] [address] [facility] [id number] [place] [address]- 47[address] Dec, IMMUNIZATIONS No Known Immunizations SOCIAL HISTORY Never Assessed REASON FOR VISIT hand pain--tcuppettRN, -Pt c/o bilateral hand pain x 5 years but is getting worse. Had spinal cord injury 5 years ago and has had problems since. Does not see a PCP., -Pt reports Gabapentin and Hydrocodone really worked in the past. Used to see Dr. Sethi. Has been several years. PLAN OF CARE Activity Details Follow Up 4 Weeks Reason:est care VITAL SIGNS Height 69 in 2017-03-11 Weight 127.7 lbs 2017-03-11 Temperature 97.9 degrees Fahrenheit 2017-03-11 Heart Rate 72 bpm 2017-03-11 Respiratory Rate 18 2017-03-11 BMI 18.86 kg/m2 2017-03-11 Blood pressure systolic 112 mmHg 2017-03-11 Blood pressure diastolic 68 mmHg 2017-03-11 MEDICATIONS Medication Instructions Dosage Frequency Start Date End Date Duration Status Ibuprofen 200 MG Orally every 6 hrs 1 tablet as needed 6h Active Ibuprofen 800 MG Orally Three times a day 1 tablet with food or milk 8h Mar, Apr, 30 day(s) Active RESULTS No Results PROCEDURES No Known procedures INSTRUCTIONS MEDICATIONS ADMINISTERED No Known Medications MEDICAL (GENERAL) HISTORY Type Description Date Medical History Spinal cord injury - cervical spine Medical History Hepatitis C Surgical History tubal ligation Surgical History Biopsy x 2 Hospitalization History Kidney infections x 2 Hospitalization History Childbirth
--- OUTSIDE RECORDS SUMMARY | 2018-06-07 10:16 | XMS REPORT | Continuity of Care Document ---
Author Author [facility] Address Unknown Phone Unavailable Allergies Active Description Code Type Severity Reaction Onset Reported/Identified Relationship to Patient Clinical Status Yes pain pills pain pills Unknown N/A 04/22/2012 Medications There is no data. Problems Date Dx Coded Attending Type Code Diagnosis Diagnosed By 12/02/2009 MIRIAM VILLANUEVA MD 465.9 UPPER RESPIRATORY INFECTION 12/02/2009 MIRIAM VILLANUEVA MD 465.9 UPPER RESPIRATORY INFECTION 12/02/2009 LAZARA EDGE APRN 465.9 UPPER RESPIRATORY INFECTION 12/02/2009 465.9 UPPER RESPIRATORY INFECTION 12/02/2009 465.9 UPPER RESPIRATORY INFECTION 12/02/2009 KISHORE ANDREWS, FILIPE Perdomo 465.9 UPPER RESPIRATORY INFECTION 12/02/2009 PEARL PATEL APRN 465.9 UPPER RESPIRATORY INFECTION 12/02/2009 PEARL PATEL APRN 465.9 UPPER RESPIRATORY INFECTION 12/02/2009 465.9 UPPER RESPIRATORY INFECTION 12/02/2009 465.9 UPPER RESPIRATORY INFECTION 12/02/2009 465.9 UPPER RESPIRATORY INFECTION 12/02/2009 PEARL PATEL APRN 465.9 UPPER RESPIRATORY INFECTION 12/02/2009 PEARL PATEL APRN 465.9 UPPER RESPIRATORY INFECTION 12/02/2009 MERY SUMMERS DO 465.9 UPPER RESPIRATORY INFECTION 12/02/2009 MIRIAM VILLANUEVA MD 465.9 UPPER RESPIRATORY INFECTION 12/02/2009 ERIKA HERCULES APRN 465.9 UPPER RESPIRATORY INFECTION 12/02/2009 ERIKA HERCULES APRN 465.9 UPPER RESPIRATORY INFECTION 12/02/2009 DIOMEDES TOM ERIKA 465.9 UPPER RESPIRATORY INFECTION 12/02/2009 FLORENCE BRENNAN APRN 465.9 UPPER RESPIRATORY INFECTION 12/02/2009 [facility], DIPTI Torres 465.9 UPPER RESPIRATORY INFECTION 12/02/2009 ELVIN COLES APRN 465.9 UPPER RESPIRATORY INFECTION 12/02/2009 ERIKA HERCULES APRN 465.9 UPPER RESPIRATORY INFECTION 09/11/2010 Ot 599.0 09/11/2010 Ot 789.09 01/07/2012 MIRIAM VILLANUEVA MD 616.10 VAGINITIS AND VULVOVAGINITIS UNSPECIFIED 01/07/2012 MIRIAM VILLANUEVA MD 616.10 VAGINITIS AND VULVOVAGINITIS UNSPECIFIED 01/07/2012 LAZARA EDGE APRN 616.10 VAGINITIS AND VULVOVAGINITIS UNSPECIFIED 01/07/2012 616.10 VAGINITIS AND VULVOVAGINITIS UNSPECIFIED 01/07/2012 616.10 VAGINITIS AND VULVOVAGINITIS UNSPECIFIED 01/07/2012 KISHORE ANDREWS, FILIPE Perdomo 616.10 VAGINITIS AND VULVOVAGINITIS UNSPECIFIED 01/07/2012 AMANDA TOM PEARL JOSE 616.10 VAGINITIS AND VULVOVAGINITIS UNSPECIFIED 01/07/2012 AMANDA TOM PEARL JOSE 616.10 VAGINITIS AND VULVOVAGINITIS UNSPECIFIED 01/07/2012 616.10 VAGINITIS AND VULVOVAGINITIS UNSPECIFIED 01/07/2012 616.10 VAGINITIS AND VULVOVAGINITIS UNSPECIFIED 01/07/2012 616.10 VAGINITIS AND VULVOVAGINITIS UNSPECIFIED 01/07/2012 AMANDA TOM PEARL JOSE 616.10 VAGINITIS AND VULVOVAGINITIS UNSPECIFIED 01/07/2012 AMANDA TOM PEARL JOSE 616.10 VAGINITIS AND VULVOVAGINITIS UNSPECIFIED 01/07/2012 MERY SUMMERS DO 616.10 VAGINITIS AND VULVOVAGINITIS UNSPECIFIED 01/07/2012 MIRIAM VILLANUEVA MD 616.10 VAGINITIS AND VULVOVAGINITIS UNSPECIFIED 01/07/2012 ERIKA HERCULES APRN 616.10 VAGINITIS AND VULVOVAGINITIS UNSPECIFIED 01/07/2012 DIOMEDES TOM ERIKA 616.10 VAGINITIS AND VULVOVAGINITIS UNSPECIFIED 01/07/2012 DIOMEDES TOM, ERIKA 616.10 VAGINITIS AND VULVOVAGINITIS UNSPECIFIED 01/07/2012 MADL ROPER OPERATOR, FLORENCE L 616.10 VAGINITIS AND VULVOVAGINITIS UNSPECIFIED 01/07/2012 [facility], DIPTI R 616.10 VAGINITIS AND VULVOVAGINITIS UNSPECIFIED 01/07/2012 SANKET ROPER OPERATOR, ELVIN A 616.10 VAGINITIS AND VULVOVAGINITIS UNSPECIFIED 01/07/2012 DIOMEDES ROPER OPERATOR, ERIKA 616.10 VAGINITIS AND VULVOVAGINITIS UNSPECIFIED 03/17/2012 MIRIAM VILLANUEVA MD 786.05 SHORTNESS OF BREATH 03/17/2012 MIRIAM VILLANUEVA MD 786.05 SHORTNESS OF BREATH 03/17/2012 LAZARA EDGE APRN 786.05 SHORTNESS OF BREATH 03/17/2012 786.05 SHORTNESS OF BREATH 03/17/2012 786.05 SHORTNESS OF BREATH 03/17/2012 KISHORE ANDREWS, FILIPE Perdomo 786.05 SHORTNESS OF BREATH 03/17/2012 AMANDA TOM PEARL JOSE 786.05 SHORTNESS OF BREATH 03/17/2012 AMANDA TOM PEARL CORONADOH 786.05 SHORTNESS OF BREATH 03/17/2012 786.05 SHORTNESS OF BREATH 03/17/2012 786.05 SHORTNESS OF BREATH 03/17/2012 786.05 SHORTNESS OF BREATH 03/17/2012 PATEL APRN, PEARL CORONADOH 786.05 SHORTNESS OF BREATH 03/17/2012 PATEL NEGRO PEARL CORONADOH 786.05 SHORTNESS OF BREATH 03/17/2012 MERY SUMMERS DO 786.05 SHORTNESS OF BREATH 03/17/2012 MIRIAM VILLANUEVA MD 786.05 SHORTNESS OF BREATH 03/17/2012 DIOMEDES ROPER OPERATOR, ERIKA 786.05 SHORTNESS OF BREATH 03/17/2012 DIOMEDES ROPER OPERATOR, ERIKA 786.05 SHORTNESS OF BREATH 03/17/2012 DIOMEDES ROPER OPERATOR, ERIKA 786.05 SHORTNESS OF BREATH 03/17/2012 FLORENCE BRENNAN APRN 786.05 SHORTNESS OF BREATH 03/17/2012 [facility], DIPTI R 786.05 SHORTNESS OF BREATH 03/17/2012 SANKET APRN, ELVIN A 786.05 SHORTNESS OF BREATH 03/17/2012 DIOMEDES ROPER OPERATOR, ERIKA 786.05 SHORTNESS OF BREATH 03/24/2012 MIRIAM VILLANUEVA MD V76.2 CERVICAL CANCER SCREENING (PAP SMEAR) 03/24/2012 MIRIAM VILLANUEVA MD V76.2 CERVICAL CANCER SCREENING (PAP SMEAR) 03/24/2012 LAZARA EDGE APRN V76.2 CERVICAL CANCER SCREENING (PAP SMEAR) 03/24/2012 V76.2 CERVICAL CANCER SCREENING (PAP SMEAR) 03/24/2012 V76.2 CERVICAL CANCER SCREENING (PAP SMEAR) 03/24/2012 FILIPE CUETO MD V76.2 CERVICAL CANCER SCREENING (PAP SMEAR) 03/24/2012 PEARL PATEL APRN V76.2 CERVICAL CANCER SCREENING (PAP SMEAR) 03/24/2012 PEARL PATEL APRN V76.2 CERVICAL CANCER SCREENING (PAP SMEAR) 03/24/2012 V76.2 CERVICAL CANCER SCREENING (PAP SMEAR) 03/24/2012 V76.2 CERVICAL CANCER SCREENING (PAP SMEAR) 03/24/2012 V76.2 CERVICAL CANCER SCREENING (PAP SMEAR) 03/24/2012 PEARL PATEL APRN V76.2 CERVICAL CANCER SCREENING (PAP SMEAR) 03/24/2012 PEARL PAETL APRN V76.2 CERVICAL CANCER SCREENING (PAP SMEAR) 03/24/2012 MERY SUMMERS DO V76.2 CERVICAL CANCER SCREENING (PAP SMEAR) 03/24/2012 MIRIAM VILLANEUVA MD V76.2 CERVICAL CANCER SCREENING (PAP SMEAR) 03/24/2012 DIOMEDES ROPER OPERATOR, ERIKA V76.2 CERVICAL CANCER SCREENING (PAP SMEAR) 03/24/2012 JANY HERCULES APRNETTE V76.2 CERVICAL CANCER SCREENING (PAP SMEAR) 03/24/2012 DIOMEDES ROPER OPERATOR, ERIKA V76.2 CERVICAL CANCER SCREENING (PAP SMEAR) 03/24/2012 FLORENCE BRENNAN APRN V76.2 CERVICAL CANCER SCREENING (PAP SMEAR) 03/24/2012 [facility], DIPTI Torres V76.2 CERVICAL CANCER SCREENING (PAP SMEAR) 03/24/2012 ELVIN COLES APRN V76.2 CERVICAL CANCER SCREENING (PAP SMEAR) 03/24/2012 DIOMEDES TOM ERIKA V76.2 CERVICAL CANCER SCREENING (PAP SMEAR) 04/10/2012 MIRIAM VILLANUEVA MD 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 04/10/2012 MIRIAM VILLANUEVA MD 300.3 AN OBCESS COMP DIS 04/10/2012 MIRIAM VILLANUEVA MD 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 04/10/2012 MIRIAM VILLANUEVA MD 300.3 AN OBCESS COMP DIS 04/10/2012 MORIAH EDGE APRNA S 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 04/10/2012 MORIAH EDGE APRNA S 300.3 AN OBCESS COMP DIS 04/10/2012 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 04/10/2012 300.3 AN OBCESS COMP DIS 04/10/2012 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 04/10/2012 300.3 AN OBCESS COMP DIS 04/10/2012 KISHORE ANDREWS, FILIPE M 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 04/10/2012 KISHORE ANDREWS, FILIPE M 300.3 AN OBCESS COMP DIS 04/10/2012 AMANDA TOM PEARL CORONADOH 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 04/10/2012 AMANDA TOM PEARL JOSE 300.3 AN OBCESS COMP DIS 04/10/2012 AMANDA TOM PEARL JOSE 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 04/10/2012 AMANDA TOM PEARL JOSE 300.3 AN OBCESS COMP DIS 04/10/2012 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 04/10/2012 300.3 AN OBCESS COMP DIS 04/10/2012 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 04/10/2012 300.3 AN OBCESS COMP DIS 04/10/2012 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 04/10/2012 300.3 AN OBCESS COMP DIS 04/10/2012 AMANDA TOM PEARL JOSE 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 04/10/2012 PEARL PATEL APRN 300.3 AN OBCESS COMP DIS 04/10/2012 AMANDA TOM PEARL JOSE 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 04/10/2012 AMANDA TOM PEARL JOSE 300.3 AN OBCESS COMP DIS 04/10/2012 SUMMERS DO MERY K 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 04/10/2012 SUMMERS DO, MERY K 300.3 AN OBCESS COMP DIS 04/10/2012 MIRIAM VILLANUEVA MD 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 04/10/2012 MIRIAM VILLANUEVA MD 300.3 AN OBCESS COMP DIS 04/10/2012 DIOMEDES ROPER OPERATOR, ERIKA 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 04/10/2012 DIOMEDES ROPER OPERATOR, ERIKA 300.3 AN OBCESS COMP DIS 04/10/2012 DIOMEDES ROPER OPERATOR, ERIKA 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 04/10/2012 DIOMEDES ROPER OPERATOR, ERIKA 300.3 AN OBCESS COMP DIS 04/10/2012 DIOMEDES ROPER OPERATOR, ERIKA 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 04/10/2012 DIOMEDES ROPER OPERATOR, ERIKA 300.3 AN OBCESS COMP DIS 04/10/2012 MADL ROPER OPERATOR, FLORENCE L 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 04/10/2012 MADL ROPER OPERATOR, FLORENCE L 300.3 AN OBCESS COMP DIS 04/10/2012 [facility], DIPTI R 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 04/10/2012 [facility], DIP[facility] R 300.3 AN OBCESS COMP DIS 04/10/2012 SANKET APRN, ELVIN A 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 04/10/2012 SANKET ROPER OPERATOR, ELVIN A 300.3 AN OBCESS COMP DIS 04/10/2012 DIOMEDES ROPER OPERATOR, ERIKA 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 04/10/2012 DIOMEDES ROPER OPERATOR, ERIKA 300.3 AN OBCESS COMP DIS 04/22/2012 Ot 300.00 04/22/2012 Ot 491.9 04/22/2012 Ot 786.01 05/17/2012 MIRIAM VILLANUEVA MD 300.02 AN GEN ANXIETY 05/17/2012 MIRIAM VILLANUEVA MD 300.02 AN GEN ANXIETY 05/17/2012 LAZARA EDGE APRN 300.02 AN GEN ANXIETY 05/17/2012 300.02 AN GEN ANXIETY 05/17/2012 300.02 AN GEN ANXIETY 05/17/2012 FILIPE CUETO MD 300.02 AN GEN ANXIETY 05/17/2012 PEARL PATEL APRN 300.02 AN GEN ANXIETY 05/17/2012 PEARL PATEL APRN 300.02 AN GEN ANXIETY 05/17/2012 300.02 AN GEN ANXIETY 05/17/2012 300.02 AN GEN ANXIETY 05/17/2012 300.02 AN GEN ANXIETY 05/17/2012 PEARL PATEL APRN 300.02 AN GEN ANXIETY 05/17/2012 PEARL PATEL APRN 300.02 AN GEN ANXIETY 05/17/2012 MERY SUMMERS DO 300.02 AN GEN ANXIETY 05/17/2012 MIRIAM VILLANUEVA MD 300.02 AN GEN ANXIETY 05/17/2012 ERIKA HERCULES APRN 300.02 AN GEN ANXIETY 05/17/2012 DIOMEDESERIKA PANDA APRN 300.02 AN GEN ANXIETY 05/17/2012 DIOMEDES ERIKA TOM 300.02 AN GEN ANXIETY 05/17/2012 ANU NEGRO FLORENCE Taj 300.02 AN GEN ANXIETY 05/17/2012 [facility], DIPTI R 300.02 AN GEN ANXIETY 05/17/2012 SANKET TOM ELVIN A 300.02 AN GEN ANXIETY 05/17/2012 ERIKA HERCULES APRN 300.02 AN GEN ANXIETY 05/20/2012 MIRIAM VILLANUEVA MD 795.03 ABNORMAL PAP - LGSIL 05/20/2012 MIRIAM VILLANUEVA MD 795.03 ABNORMAL PAP - LGSIL 05/20/2012 LAZARA EDGE APRN 795.03 ABNORMAL PAP - LGSIL 05/20/2012 795.03 ABNORMAL PAP - LGSIL 05/20/2012 795.03 ABNORMAL PAP - LGSIL 05/20/2012 KISHORE ANDREWS, FILIPE Perdomo 795.03 ABNORMAL PAP - LGSIL 05/20/2012 PEARL PATEL APRN 795.03 ABNORMAL PAP - LGSIL 05/20/2012 PEARL PATEL APRN 795.03 ABNORMAL PAP - LGSIL 05/20/2012 795.03 ABNORMAL PAP - LGSIL 05/20/2012 795.03 ABNORMAL PAP - LGSIL 05/20/2012 795.03 ABNORMAL PAP - LGSIL 05/20/2012 PEARL PATEL APRN 795.03 ABNORMAL PAP - LGSIL 05/20/2012 PEARL PATEL APRN 795.03 ABNORMAL PAP - LGSIL 05/20/2012 MERY SUMMERS DO 795.03 ABNORMAL PAP - LGSIL 05/20/2012 MIRIAM VILLANUEVA MD 795.03 ABNORMAL PAP - LGSIL 05/20/2012 ERIKA HERCULES APRN 795.03 ABNORMAL PAP - LGSIL 05/20/2012 ERIKA HERCULES APRN 795.03 ABNORMAL PAP - LGSIL 05/20/2012 ERIKA HERCULES APRN 795.03 ABNORMAL PAP - LGSIL 05/20/2012 ANU NEGROFLORENCE 795.03 ABNORMAL PAP - LGSIL 05/20/2012 [facility], DIPTI R 795.03 ABNORMAL PAP - LGSIL 05/20/2012 SANKET NEGROELVIN 795.03 ABNORMAL PAP - LGSIL 05/20/2012 ERIKA HERCULES APRN 795.03 ABNORMAL PAP - LGSIL 08/17/2012 Ot 681.00 08/17/2012 Ot 959.5 08/17/2012 Ot E000.8 08/17/2012 Ot E849.0 08/17/2012 Ot E917.9 08/26/2012 LAZARA EDGE APRN 681.00 UNSPECIFIED CELLULITIS AND ABSCESS OF FINGER 08/26/2012 681.00 UNSPECIFIED CELLULITIS AND ABSCESS OF FINGER 08/26/2012 681.00 UNSPECIFIED CELLULITIS AND ABSCESS OF FINGER 08/26/2012 KISHORE ANDREWS, FILIPE Perdomo 681.00 UNSPECIFIED CELLULITIS AND ABSCESS OF FINGER 08/26/2012 AMANDA TOM PEARL JOSE 681.00 UNSPECIFIED CELLULITIS AND ABSCESS OF FINGER 08/26/2012 AMANDA TOM PEARL JOSE 681.00 UNSPECIFIED CELLULITIS AND ABSCESS OF FINGER 08/26/2012 681.00 UNSPECIFIED CELLULITIS AND ABSCESS OF FINGER 08/26/2012 681.00 UNSPECIFIED CELLULITIS AND ABSCESS OF FINGER 08/26/2012 681.00 UNSPECIFIED CELLULITIS AND ABSCESS OF FINGER 08/26/2012 PEARL PATEL APRN 681.00 UNSPECIFIED CELLULITIS AND ABSCESS OF FINGER 08/26/2012 PEARL PATEL APRN 681.00 UNSPECIFIED CELLULITIS AND ABSCESS OF FINGER 08/26/2012 MERY SUMMERS DO 681.00 UNSPECIFIED CELLULITIS AND ABSCESS OF FINGER 08/26/2012 KAY ANDREWS, MIRIAM 681.00 UNSPECIFIED CELLULITIS AND ABSCESS OF FINGER 08/26/2012 DIOMEDES TOM, ERIKA 681.00 UNSPECIFIED CELLULITIS AND ABSCESS OF FINGER 08/26/2012 ERIKA HERCULES APRN 681.00 UNSPECIFIED CELLULITIS AND ABSCESS OF FINGER 08/26/2012 DIOMEDES TOM ERIKA 681.00 UNSPECIFIED CELLULITIS AND ABSCESS OF FINGER 08/26/2012 FLORENCE BRENNAN APRN 681.00 UNSPECIFIED CELLULITIS AND ABSCESS OF FINGER 08/26/2012 [facility], DIPTI R 681.00 UNSPECIFIED CELLULITIS AND ABSCESS OF FINGER 08/26/2012 SANKET TOM ELVIN A 681.00 UNSPECIFIED CELLULITIS AND ABSCESS OF FINGER 08/26/2012 DIOMEDES TOM ERIKA 681.00 UNSPECIFIED CELLULITIS AND ABSCESS OF FINGER 08/28/2012 Ot 070.70 08/28/2012 Ot 300.00 08/28/2012 Ot 305.1 08/28/2012 Ot 311 08/28/2012 Ot 681.00 08/28/2012 Ot 959.5 08/28/2012 Ot E000.8 08/28/2012 Ot E849.0 08/28/2012 Ot E917.9 09/05/2012 884.0 WOUND OPEN UPPER LIMB 09/05/2012 884.0 WOUND OPEN UPPER LIMB 09/05/2012 KISHORE ANDREWS, FILIPE Perdomo 884.0 WOUND OPEN UPPER LIMB 09/05/2012 AMANDA TOM PEARL JOSE 884.0 WOUND OPEN UPPER LIMB 09/05/2012 AMANDA TOM PEARL JOSE 884.0 WOUND OPEN UPPER LIMB 09/05/2012 884.0 WOUND OPEN UPPER LIMB 09/05/2012 884.0 WOUND OPEN UPPER LIMB 09/05/2012 884.0 WOUND OPEN UPPER LIMB 09/05/2012 AMANDA TOM PEARL JOSE 884.0 WOUND OPEN UPPER LIMB 09/05/2012 AMANDA TOM PEARL JOSE 884.0 WOUND OPEN UPPER LIMB 09/05/2012 MERY SUMMERS DO 884.0 WOUND OPEN UPPER LIMB 09/05/2012 KAY ANDREWS, MIRIAM 884.0 WOUND OPEN UPPER LIMB 09/05/2012 ERIKA HERCULES APRN 884.0 WOUND OPEN UPPER LIMB 09/05/2012 ERIKA HERCULES APRN 884.0 WOUND OPEN UPPER LIMB 09/05/2012 DIOMEDES TOM ERIKA 884.0 WOUND OPEN UPPER LIMB 09/05/2012 MADL ROPER OPERATORFLORENCE Styles 884.0 WOUND OPEN UPPER LIMB 09/05/2012 [facility], DIPTI R 884.0 WOUND OPEN UPPER LIMB 09/05/2012 SANKET TOM, ELVIN A 884.0 WOUND OPEN UPPER LIMB 09/05/2012 DIOMEDES ROPER OPERATOR, ERIKA 884.0 WOUND OPEN UPPER LIMB 09/12/2012 Ot 681.00 09/15/2012 682.9 CELLULITIS AND ABSCESS OF UNSPECIFIED SITES 09/15/2012 KISHORE ANDREWS, FILIPE Perdomo 682.9 CELLULITIS AND ABSCESS OF UNSPECIFIED SITES 09/15/2012 PATEL ROPER OPERATOR, PEARL JOSE 682.9 CELLULITIS AND ABSCESS OF UNSPECIFIED SITES 09/15/2012 PATEL NEGRO, PEARL JOSE 682.9 CELLULITIS AND ABSCESS OF UNSPECIFIED SITES 09/15/2012 682.9 CELLULITIS AND ABSCESS OF UNSPECIFIED SITES 09/15/2012 682.9 CELLULITIS AND ABSCESS OF UNSPECIFIED SITES 09/15/2012 682.9 CELLULITIS AND ABSCESS OF UNSPECIFIED SITES 09/15/2012 PATEL ROPER OPERATOR, PEARL JOSE 682.9 CELLULITIS AND ABSCESS OF UNSPECIFIED SITES 09/15/2012 PATEL NEGRO PEARL JOSE 682.9 CELLULITIS AND ABSCESS OF UNSPECIFIED SITES 09/15/2012 MERY SUMMERS DO 682.9 CELLULITIS AND ABSCESS OF UNSPECIFIED SITES 09/15/2012 KAY ANDREWS, MIRIAM 682.9 CELLULITIS AND ABSCESS OF UNSPECIFIED SITES 09/15/2012 DIOMEDES ROPER OPERATOR, ERIKA 682.9 CELLULITIS AND ABSCESS OF UNSPECIFIED SITES 09/15/2012 DIOMEDES ROPER OPERATOR, ERIKA 682.9 CELLULITIS AND ABSCESS OF UNSPECIFIED SITES 09/15/2012 DIOMEDES ROPER OPERATOR, ERIKA 682.9 CELLULITIS AND ABSCESS OF UNSPECIFIED SITES 09/15/2012 FLORENCE BRENNAN APRN 682.9 CELLULITIS AND ABSCESS OF UNSPECIFIED SITES 09/15/2012 [facility], DIPTI R 682.9 CELLULITIS AND ABSCESS OF UNSPECIFIED SITES 09/15/2012 SANKET ROPER OPERATORELVIN Styles A 682.9 CELLULITIS AND ABSCESS OF UNSPECIFIED SITES 09/15/2012 DIOMEDES ROPER OPERATOR, ERIKA 682.9 CELLULITIS AND ABSCESS OF UNSPECIFIED SITES 09/23/2012 KISHORE ANDREWS, FILIPE Perdomo 041.12 MRSA, METHICILLIN RESISTANT 09/23/2012 PATEL NEGRO PEARL JOSE 041.12 MRSA, METHICILLIN RESISTANT 09/23/2012 PATEL ROPER OPERATOR, PEARL JOSE 041.12 MRSA, METHICILLIN RESISTANT 09/23/2012 041.12 MRSA, METHICILLIN RESISTANT 09/23/2012 041.12 MRSA, METHICILLIN RESISTANT 09/23/2012 041.12 MRSA, METHICILLIN RESISTANT 09/23/2012 PATEL ROPER OPERATOR, PEARL JOSE 041.12 MRSA, METHICILLIN RESISTANT 09/23/2012 PATEL ROPER OPERATOR, PEARL JOSE 041.12 MRSA, METHICILLIN RESISTANT 09/23/2012 MERY SUMMERS DO 041.12 MRSA, METHICILLIN RESISTANT 09/23/2012 KAY ANDREWS, MIRIAM 041.12 MRSA, METHICILLIN RESISTANT 09/23/2012 DIOMEDES ROPER OPERATOR, ERIKA 041.12 MRSA, METHICILLIN RESISTANT 09/23/2012 DIOMEDES ROPER OPERATOR, ERIKA 041.12 MRSA, METHICILLIN RESISTANT 09/23/2012 DIOMEDES ROPER OPERATOR, ERIKA 041.12 MRSA, METHICILLIN RESISTANT 09/23/2012 FLORENCE BRENNAN APRN 041.12 MRSA, METHICILLIN RESISTANT 09/23/2012 [facility], DIPTI Torres 041.12 MRSA, METHICILLIN RESISTANT 09/23/2012 ELVIN COLES APRN 041.12 MRSA, METHICILLIN RESISTANT 09/23/2012 DIOMEDES ROPER OPERATOR, ERIKA 041.12 MRSA, METHICILLIN RESISTANT 11/27/2012 Ot 681.00 12/22/2012 354.0 CARPAL TUNNEL SYNDROME 12/22/2012 719.41 PAIN IN JOINT INVOLVING SHOULDER REGION 12/22/2012 354.0 CARPAL TUNNEL SYNDROME 12/22/2012 719.41 PAIN IN JOINT INVOLVING SHOULDER REGION 12/22/2012 354.0 CARPAL TUNNEL SYNDROME 12/22/2012 719.41 PAIN IN JOINT INVOLVING SHOULDER REGION 12/22/2012 PEARL PATEL APRN 354.0 CARPAL TUNNEL SYNDROME 12/22/2012 PEARL PATEL APRN 719.41 PAIN IN JOINT INVOLVING SHOULDER REGION 12/22/2012 PEARL PATEL APRN 354.0 CARPAL TUNNEL SYNDROME 12/22/2012 PEARL PATEL APRN 719.41 PAIN IN JOINT INVOLVING SHOULDER REGION 12/22/2012 MERY SUMMERS DO 354.0 CARPAL TUNNEL SYNDROME 12/22/2012 MERY SUMMERS DO 719.41 PAIN IN JOINT INVOLVING SHOULDER REGION 12/22/2012 MIRIAM VILLANUEVA MD 354.0 CARPAL TUNNEL SYNDROME 12/22/2012 MIRIAM VILLANUEVA MD 719.41 PAIN IN JOINT INVOLVING SHOULDER REGION 12/22/2012 DIOMEDES ROPER OPERATOR, ERIKA 354.0 CARPAL TUNNEL SYNDROME 12/22/2012 DIOMEDES NEGRO ERIKA 719.41 PAIN IN JOINT INVOLVING SHOULDER REGION 12/22/2012 DIOMEDES ROPER OPERATOR ERIKA 354.0 CARPAL TUNNEL SYNDROME 12/22/2012 DIOMEDES ROPER OPERATOR ERIKA 719.41 PAIN IN JOINT INVOLVING SHOULDER REGION 12/22/2012 DIOMEDES TOM ERIKA 354.0 CARPAL TUNNEL SYNDROME 12/22/2012 DIOMEDES ROPER OPERATOR, ERIKA 719.41 PAIN IN JOINT INVOLVING SHOULDER REGION 12/22/2012 ZOILA BRENNAN APRNA L 354.0 CARPAL TUNNEL SYNDROME 12/22/2012 ZOILA BRENNAN APRNA L 719.41 PAIN IN JOINT INVOLVING SHOULDER REGION 12/22/2012 [facility], DIPTI R 354.0 CARPAL TUNNEL SYNDROME 12/22/2012 [facility], DIPTI R 719.41 PAIN IN JOINT INVOLVING SHOULDER REGION 12/22/2012 ELVIN COLES APRN A 354.0 CARPAL TUNNEL SYNDROME 12/22/2012 ELVIN COLES APRN A 719.41 PAIN IN JOINT INVOLVING SHOULDER REGION 12/22/2012 DIOMEDESFARZAD TOM ERIKA 354.0 CARPAL TUNNEL SYNDROME 12/22/2012 DIOMEDES TOM ERIKA 719.41 PAIN IN JOINT INVOLVING SHOULDER REGION 02/11/2013 DIMAS KHAN MD Ot 721.0 02/11/2013 DIMAS KHAN MD Ot V57.1 02/23/2013 461.9 SINUSITIS ACUTE 02/23/2013 PEARL PATEL APRN 461.9 SINUSITIS ACUTE 02/23/2013 PEARL PATEL APRN 461.9 SINUSITIS ACUTE 02/23/2013 MERY SUMMERS DO 461.9 SINUSITIS ACUTE 02/23/2013 MIRIAM VILLANUEVA MD 461.9 SINUSITIS ACUTE 02/23/2013 DIOMEDES ROPER OPERATOR, ERIKA 461.9 SINUSITIS ACUTE 02/23/2013 DIOMEDES ROPER OPERATOR, ERIKA 461.9 SINUSITIS ACUTE 02/23/2013 DIOMEDES ROPER OPERATOR, ERIKA 461.9 SINUSITIS ACUTE 02/23/2013 FLORENCE BRENNAN APRN 461.9 SINUSITIS ACUTE 02/23/2013 [facility], DIPTI R 461.9 SINUSITIS ACUTE 02/23/2013 SANKET ROPER OPERATOR, ELVIN A 461.9 SINUSITIS ACUTE 02/23/2013 DIOMEDES ROPER OPERATOR, ERIKA 461.9 SINUSITIS ACUTE 09/21/2013 MERY SUMMERS DO V65.42 COUNSELING - SMOKING CESSATION 09/21/2013 MIRIAM VILLANUEVA MD V65.42 COUNSELING - SMOKING CESSATION 09/21/2013 DIOMEDES ROPER OPERATOR ERIKA V65.42 COUNSELING - SMOKING CESSATION 09/21/2013 DIOMEDES ROPER OPERATOR, ERIKA V65.42 COUNSELING - SMOKING CESSATION 09/21/2013 DIOMEDES ROPER OPERATOR, ERIKA V65.42 COUNSELING - SMOKING CESSATION 09/21/2013 FLORENCE BRENNAN APRN V65.42 COUNSELING - SMOKING CESSATION 09/21/2013 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, DIPTI R 296.33 MO DEPRESSIVE RECURRENT SEVERE W/O PSYCHOTIC BEHAVIOR 05/21/2014 DAR COLES APRNIDI A 296.33 MO DEPRESSIVE RECURRENT SEVERE W/O PSYCHOTIC BEHAVIOR 05/21/2014 ERIKA HERCULES APRN 296.33 MO DEPRESSIVE RECURRENT SEVERE W/O PSYCHOTIC BEHAVIOR 07/23/2014 Ot 681.00 07/23/2014 ROJAS ANDREWS, CAM A Ot 723.1 07/23/2014 ROJAS ANDREWS, CAM A Ot 729.5 07/26/2014 Ot 681.00 07/26/2014 ROJAS ANDREWS, CAM A Ot 723.1 07/26/2014 ROJAS ANDREWS, CAM A Ot 729.5 07/26/2014 DESIRE JOHNSTON MD Ot 721.0 07/26/2014 DESIRE JOHNSTON MD Ot 722.4 07/26/2014 DESIRE JOHNSTON MD Ot 729.1 07/26/2014 DESIRE JOHNSTON MD Ot V58.69 09/08/2014 ZOILA BRENNAN APRNA L 729.5 PAIN IN LIMB 09/08/2014 BENNETTL HIEN TOMWNYA L 782.0 DISTURBANCE OF SKIN SENSATION 09/08/2014 [facility], DIPTI R 729.5 PAIN IN LIMB 09/08/2014 [facility], DIPTI R 782.0 DISTURBANCE OF SKIN SENSATION 09/08/2014 DAR COLES APRNIDI A 729.5 PAIN IN LIMB 09/08/2014 DAR COLES APRNIDI A 782.0 DISTURBANCE OF SKIN SENSATION 09/08/2014 DIOMEDES ROPER OPERATOR, ERIKA 729.5 PAIN IN LIMB 09/08/2014 DIOMEDES ROPER OPERATOR, ERIKA 782.0 DISTURBANCE OF SKIN SENSATION 09/08/2014 Ot 681.00 09/08/2014 ROJAS ANDREWS, CAM A Ot 723.1 09/08/2014 ROJAS ANDREWS, CAM A Ot 729.5 10/27/2014 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 AND TISSUES 10/27/2014 [facility], DIPTI R 626.4 IRREGULAR MENSTRUAL CYCLE 10/27/2014 [facility], DIPTI R 788.1 DYSURIA 10/27/2014 [facility], DIPTI R V72.31 PEST CONTROLLER ASSISTANT EXAM, ROUTINE 10/27/2014 [facility] V[facility].81 [facility] S[facility] 10/27[facility]2014 [facility] V74.5 STD S[facility]EN 10/27/2014 [facility] V76.10 BREAST CANCER SCREENING 10/27/2014 SANKET TOM ELVIN A 614.9 UNSPECIFIED INFLAMMATORY DISEASE OF FEMALE PELVIC ORGANS AND TISSUES 10/27/2014 SANKET TOM, ELVIN A 626.4 IRREGULAR MENSTRUAL CYCLE 10/27/2014 SANKET TOM, ELVIN A 788.1 DYSURIA 10/27/2014 SANKET TOM, ELVIN A V72.31 PEST CONTROLLER ASSISTANT EXAM, ROUTINE 10/27/2014 SANKET TOM, ELVIN A V73.81 HPV SCREENING 10/27/2014 SANKET TOM, ELVIN A V74.5 STD SCREEN 10/27/2014 SANKET TOM, ELVIN A V76.10 BREAST CANCER SCREENING 10/27/2014 DIOMEDES TOM ERIKA 614.9 UNSPECIFIED INFLAMMATORY DISEASE OF FEMALE PELVIC ORGANS AND TISSUES 10/27/2014 DIOMEDES ROPER OPERATOR, ERIKA 626.4 IRREGULAR MENSTRUAL CYCLE 10/27/2014 DIOMEDES ROPER OPERATOR, ERIKA 788.1 DYSURIA 10/27/2014 DIOMEDES ROPER OPERATOR, ERIKA V72.31 PEST CONTROLLER ASSISTANT EXAM, ROUTINE 10/27/2014 DIOMEDES ROPER OPERATOR, ERIKA V73.81 HPV SCREENING 10/27/2014 DIOMEDES ROPER OPERATOR, ERIKA V74.5 STD SCREEN 10/27/2014 ERIKA HERCULES APRN V76.10 BREAST CANCER SCREENING 12/02/2014 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 08/27/2015 Ot 681.00 08/27/2015 ROJAS ANDREWS, CAM Gallardo Ot 723.1 08/27/2015 ROJAS ANDREWS, CAM Gallardo Ot 729.5 08/27/2015 DEMETRIO ANDREWS, BOB Parra Ot N12 TUBULO-INTERSTITIAL NEPHRITIS, NOT SPCF 08/29/2015 Ot 681.00 08/29/2015 ROJAS ANDREWS, CAM Gallardo Ot 723.1 08/29/2015 ROJAS ANDREWS, CAM Gallardo Ot 729.5 08/29/2015 KAY ANDREWS, MIRIAM Palomino Ot A41.9 08/29/2015 KAY ANDREWS, MIRIAM Palomino Ot B19.20 08/29/2015 KAY ANDREWS, MIRIAM Palomino Ot B96.20 08/29/2015 KAY ANDREWS, MIRIAM Palomino Ot F17.210 08/29/2015 KAY ANDREWS, MIRIAM Palomino Ot N12 08/30/2015 KAY ANDREWS, MIRIMA Palomino Ot A41.9 08/30/2015 KAY ANDREWS, MIRIAM Palomino Ot B19.20 08/30/2015 KAY ANDREWS, MIRIAM Palomino Ot B96.20 08/30/2015 KAY ANDREWS, MIRIAM Palomino Ot F17.210 08/30/2015 KAY ANDREWS, MIRIAM Palomino Ot N12 08/30/2015 KAY ANDREWS, MIRIAM Palomino Ot A41.9 SEPSIS, UNSPECIFIED ORGANISM 08/30/2015 KAY ANDREWS, MIRIAM Palomino Ot B19.20 UNSPECIFIED VIRAL HEPATITIS C WITHOUT HE 08/30/2015 KAY ANDREWS, MIRIAM Palomino Ot B96.20 UNSP ESCHERICHIA COLI THE CAUSE OF DI 08/30/2015 KAY ANDREWS, MIRIAM Palomino Ot F17.210 NICOTINE DEPENDENCE, CIGARETTES, UNCOMPL 08/30/2015 KAY ANDREWS, MIRIAM Palomino Ot N12 TUBULO-INTERSTITIAL NEPHRITIS, NOT SPCF 09/16/2015 Ot 681.00 09/16/2015 ROJAS ANDREWS, CAM A Ot 723.1 09/16/2015 ROJAS ANDREWS, CAM A Ot 729.5 09/16/2015 Ot 681.00 09/16/2015 ROJAS ANDREWS, CAM A Ot 723.1 09/16/2015 ROJAS ANDREWS, CAM A Ot 729.5 02/11/2016 BOB ATKINSON MD Ot N12 TUBULO-INTERSTITIAL NEPHRITIS, NOT SPCF 07/09/2016 NICHOLE CLANCY APRN Ot K02.9 DENTAL CARIES, UNSPECIFIED 07/09/2016 NICHOLE CLANCY APRN Ot K04.7 PERIAPICAL ABSCESS WITHOUT SINUS 07/10/2016 DEMETRIO ANDREWS, BOB Parra Ot F17.210 NICOTINE DEPENDENCE, CIGARETTES, UNCOMPL 07/10/2016 BOB ATKINSON MD Ot K02.9 DENTAL CARIES, UNSPECIFIED 07/10/2016 BOB ATKINSON MD Ot K08.9 DISORDER OF TEETH AND SUPPORTING STRUCTU Procedures Code Description Performed By Performed On [facility] S Filipe Cueto 09/15/2012 ENRICO BELTRAN 12/22/2012 72247 [employer] 09/08/2014 PHYSICAL PHYSICAL THERAPY, [facility] 09/08/2014 52869 PSYCH DIAGNOSTIC EVALUATION 12/02/2014 10252 GC/CHLAM URINE (STATE) 12/13/2014 Results Test Result Range Complete blood count (CBC) with automated white blood cell (WBC) differential - 07/09/16 19:25 Blood leukocytes automated count (number/volume) 8.3 10*3/uL 4.3-11.0 Blood erythrocytes automated count (number/volume) 4.63 10*6/uL 4.35-5.85 Venous blood hemoglobin measurement (mass/volume) 14.5 g/dL 11.5-16.0 Blood hematocrit (volume fraction) 42 % 35-52 Automated erythrocyte mean corpuscular volume 91 [foz_us] 80-99 Automated erythrocyte mean corpuscular hemoglobin (mass per erythrocyte) 31 pg 25-34 Automated erythrocyte mean corpuscular hemoglobin concentration measurement ( mass/volume) 34 g/dL 32-36 Automated erythrocyte distribution width ratio 14.1 % 10.0-14.5 Automated blood platelet count (count/volume) 203 10*3/uL 130-400 Automated blood platelet mean volume measurement 9.7 [foz_us] 7.4-10.4 Automated blood neutrophils/100 leukocytes 55 % 42-75 Automated blood lymphocytes/100 leukocytes 33 % 12-44 Blood monocytes/100 leukocytes 10 % 0-12 Automated blood eosinophils/100 leukocytes 2 % 0-10 Automated blood basophils/100 leukocytes 0 % 0-10 Blood neutrophils automated count (number/volume) 4.6 10*3 1.8-7.8 Blood lymphocytes automated count (number/volume) 2.7 10*3 1.0-4.0 Blood monocytes automated count (number/volume) 0.8 10*3 0.0-1.0 Automated eosinophil count 0.2 10*3/uL 0.0-0.3 Automated blood basophil count (count/volume) 0.0 10*3/uL 0.0-0.1 Encounters ACCT No. Visit Date/Time Discharge Status Pt. Type Provider Facility Loc./Unit Complaint [id number] 12/13/2014 13:18:00 12/13/2014 23:59:59 CLS Outpatient ELVIN COLES APRN [id number] 12/02/2014 13:53:00 12/02/2014 23:59:59 CLS Outpatient DIPTI ALATORRE [id number] 12/02/2014 13:32:00 12/02/2014 23:59:59 CLS Outpatient ERIKA HERCULES APRN [id number] 09/08/2014 10:50:00 09/08/2014 23:59:59 CLS Outpatient FLORENCE BRENNAN APRN [id number] 05/21/2014 09:02:00 05/21/2014 23:59:59 CLS Outpatient ERIKA HERCULES APRN [id number] 05/21/2014 09:02:00 05/21/2014 23:59:59 CLS Outpatient ERIKA HERCULES APRN [id number] 01/26/2014 14:07:00 01/26/2014 23:59:59 CLS Outpatient ERIKA HERCULES APRN [id number] 01/26/2014 14:07:00 01/26/2014 23:59:59 CLS Outpatient MIRIAM VILLANUEVA MD [id number] 09/21/2013 16:59:00 09/21/2013 23:59:59 CLS Outpatient MERY SUMMERS DO [id number] 08/19/2013 15:00:00 08/19/2013 23:59:59 CLS Outpatient PEARL PATEL APRN [id number] 03/02/2013 16:12:00 03/02/2013 23:59:59 CLS Outpatient PEARL PATEL APRN [id number] 12/09/2012 14:56:00 12/09/2012 23:59:59 CLS Outpatient PEARL PATEL APRN [id number] 10/23/2012 11:30:00 10/23/2012 23:59:59 CLS Outpatient PEARL PATEL APRN [id number] 09/17/2012 13:25:00 09/17/2012 23:59:59 CLS Outpatient FILIPE CUETO MD [id number] 09/15/2012 16:12:00 09/15/2012 23:59:59 CLS Outpatient [id number] 09/05/2012 11:37:00 09/05/2012 23:59:59 CLS Outpatient [id number] 08/26/2012 15:42:00 08/26/2012 23:59:59 CLS Outpatient KELYJARRET TOMMORIAHSami Turpin [id number] 06/05/2012 09:00:00 06/05/2012 23:59:59 [place] [id number] 06/05/2012 09:00:00 06/05/2012 23:59:59 CLS Outpatient MIRIAM VILLANUEVA MD [id number] 02/23/2013 14:05:00 Document Registration [id number] 01/08/2013 14:00:00 Document Registration [id number] 12/22/2012 10:08:00 Document Registration [id number] 04/15/2018 16:40:00 04/15/2018 23:59:59 CLS Outpatient SILVINA BEY [facility] [id number] 07/09/2016 18:24:00 07/09/2016 20:30:00 DIS Emergency NICHOLE CLANCY APRN [facility] ER DENTAL ABSCESS/SWELLING [id number] 07/08/2016 10:30:00 07/08/2016 11:05:00 DIS Outpatient BOB ATKINSON MD [facility] ER POSS INFECTED TOOTH ON R SIDE [id number] 08/28/2015 20:40:00 08/30/2015 11:50:00 DIS Inpatient MIRIAM VILLANUEVA MD Via [address] [id number] 08/27/2015 10:00:00 08/27/2015 14:47:00 DIS Emergency BOB ATKINSON MD 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 REHAB [id number] 07/26/2014 11:34:00 07/26/2014 13:36:00 DIS Outpatient DESIRE JOHNSTON MD [facility] CARD [id number] 05/06/2014 13:41:00 05/06/2014 15:01:00 DIS Emergency NICHOLE CLANCY APRN [facility] ER [id number] 11/04/2013 15:11:00 11/04/2013 23:59:59 CLS Outpatient CAM XIE MD [facility] RAD [id number] 11/01/2013 17:22:00 11/01/2013 19:37:00 DIS Emergency CAM XIE MD [facility] ER [id number] 04/12/2013 12:30:00 04/12/2013 23:59:59 CLS Outpatient EUNICE NATALIE MADRIDP [facility] QUICK [id number] 01/27/2013 08:00:00 02/11/2013 08:51:00 DIS Outpatient DIMAS KHAN MD [facility] REHAB [id number] 01/14/2013 14:50:00 01/14/2013 23:59:59 CLS Outpatient DIMAS KHAN MD [facility] ORTHO [id number] 09/16/2015 11:52:00 Document Registration [id number] 09/16/2015 11:52:00 Document Registration [id number] 09/16/2015 11:52:00 Document Registration [id number] 09/16/2015 11:52:00 Document Registration [id number] 11/28/2012 00:00:00 Document Registration [id number] 09/12/2012 12:30:00 Document Registration [id number] 08/29/2012 11:00:00 Document Registration [id number] 08/26/2012 20:58:00 Document Registration [id number] 08/17/2012 18:47:00 Document Registration [id number] 04/22/2012 04:25:00 Document Registration [id number] 09/11/2010 11:57:00 Document Registration
--- NOTE | 2018-06-07 10:39 | ED General ---
General Chief Complaint: Skin/Wound Problems Stated Complaint: R HAND SWELLING Nursing Triage Note: PT AMB TO ROOM #6 W/O DIFFICULTY. A&OX4. CO RT HANDSWELLING. UPON ARRIVAL TO ED PT RT HAND NOTED TO BE INFLAMMED WITH X3 BLISTERS NOTED TO RT INDEX FINGER. 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 PT REPORTS PAIN AND SWELLING HAS INCREASED SINCE AND PT ATTEMPTED TO "POP THE BLISTERS TO GET THAT NASTY STUFF OUT OF THEM." DENIES RECENET FEVER OR CHILLS. Nursing Sepsis Screen: No Definite Risk Source of Information: Patient Exam Limitations: No Limitations History of Present Illness Date Seen by Provider: Jun 07, 2018 Time Seen by Provider: 10:20 Initial Comments This 42-year-old woman presents to the emergency room with 3 blistering lesions over the second MCP joint on the right hand. She states it started with a small painful blister 2 days ago and has spread since then. She denies fever and her vital signs are normal. She did rupture one of the lesions and drained pus. She denies any known injury. Symptoms were first noticed while she was out picking walnuts. 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 Allergies and Home Medications Allergies Uncoded Allergies: pain pills (Adverse Reaction, Unknown, 04/22/12) makes her nauseas Home Medications Amoxicillin 500 Mg Capsule, 500 MG PO TID Prescribed by: BOB ATKINSON on 07/08/16 1102 Hydrocodone Bit/Acetaminophen 1 Each Tablet, 1-2 EACH PO Q6H PRN for PAIN Prescribed by: BOB ATKINSON on 07/08/16 1102 Promethazine HCl 25 Mg Tablet, 25 MG PO Q8H PRN for NAUSEA/VOMITING Prescribed by: BOB ATKINSON on 07/08/16 1102 Sulfamethoxazole/Trimethoprim 1 Each Tablet, 1 EACH PO TID Prescribed by: PILI HODGE on 06/07/18 1044 Patient Home Medication List Home Medication List Reviewed: Yes Review of Systems Review of Systems Constitutional: no symptoms reported EENTM: no symptoms reported Respiratory: no symptoms reported Cardiovascular: no symptoms reported Gastrointestinal: no symptoms reported Genitourinary: no symptoms reported Musculoskeletal: see HPI Skin: see HPI Psychiatric/Neurological: No Symptoms Reported Hematologic/Lymphatic: No Symptoms Reported Immunological/Allergic: no symptoms reported Past Ttcdtsp-Hmcrgp-Shmmop Hx Patient Social History Recreational Drug Use: Yes (remote IV drug use) Type Used: Cigarettes Recent Foreign Travel: No Contact w/Someone Who Travel: No Recent Infectious Disease Expo: No Recent Hopitalizations: No Immunizations Up To Date Tetanus Booster (TDap): Unknown Seasonal Allergies Seasonal Allergies: No Past Medical History Surgeries: Yes Lumpectomy, Tubal Ligation Respiratory: Yes Asthma Currently Using CPAP: No Currently Using BIPAP: No Cardiac: No Neurological: No : No 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 Disorders: No Female 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 Disorders: Denies 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 History: Tubal Ligation Sexually Transmitted Disease: No HIV/AIDS: No Genitourinary: Yes Kidney Infection, Bladder Infection, Kidney Stones, UTI-Chronic Gastrointestinal: Yes Hepatitis (hepatitis C) Musculoskeletal: Yes Chronic Back Pain (chronic neck and back pain) HEENT: No Cancer: No Psychosocial: Yes Sleep Difficulties Integumentary: No Adverse Reaction/Blood Tranf: No Family Medical History No Pertinent Family Hx Physical Exam Vital Signs Vital Signs - First Documented 06/07/18 10:13 Temp 97.6 Pulse 76 Resp 18 B/P (MAP) 140/73 (95) Pulse Ox 100 O2 Delivery Room Air Capillary Refill : Less Than 3 Seconds Height, Weight, BMI Height: 5'4.00" Weight: 130lbs. 7.0oz. 58.819601de; BMI Method:Stated General Appearance: No Apparent Distress, WD/WN HEENT: Normal ENT Inspection Neck: Normal Inspection Respiratory: Normal Breath Sounds, No Respiratory Distress Cardiovascular: Regular Rate, Rhythm, No Edema Extremity: Other (there is erythema, tenderness, and swelling over the proximal phalanx and the MCP joint of the second finger on the right hand. There are 3 pustular lesions in this area filled with purulent appearing fluid. Range of motion is limited secondary to pain and swelling.) Neurologic/Psychiatric: Alert, Oriented x3, No Motor/Sensory Deficits, Normal Mood/Affect, manager database II-XII Norm as Tested Skin: Normal Color, Warm/Dry, Other (see above) Procedures/Interventions I&D : Blade Size: 10 Progress Skin surface was cleaned with a chlorhexidine wipe. The 3 pustular lesions were opened with a scalpel. The thin purulent drainage was expressed from the 3 pustules. Cultures were obtained. The area was then rinsed with sterile saline and chlorhexidine soap. Antibiotic ointment was applied and a dressing was taped over the wounds. The remainder of the chlorhexidine bottle was sent home with the patient. Wound was also examined by Julius King APRN, for continuity of care should the patient return later this weekend. Progress/Results/Core Measures Suspected Sepsis Recent Fever Within 48 Hours: No Infection Criteria Present: None New/Unexplained Altered Menta: No Sepsis Screen: No Definite Risk SIRS Temperature:97.6 Pulse: 76 Respiratory Rate: 18 Blood Pressure 140 /73 Mean: 95 Results/Orders My Orders Orders - PILI PRADO MD Clindamycin Injection (Cleocin Injection (06/07/18 10:45) Wound Culture (06/07/18 10:39) Vital Signs/I&O 06/07/18 10:13 Temp 97.6 Pulse 76 Resp 18 B/P (MAP) 140/73 (95) Pulse Ox 100 O2 Delivery Room Air Capillary Refill : Less Than 3 Seconds Blood Pressure Mean: 95 Progress Note : Progress Note Although shingles was considered, these lesions are more likely related to cellulitis and abscess. The blistering lesions are filled with purulent drainage and appear larger than what would be typical for shingles. The area was cleaned with chlorhexidine wipes. Incision and drainage was performed with collection of cultures. Wound was also examined by Julius King APRN, for continuity of care should the patient return later this weekend. Patient received an injection of clindamycin 600 mg IM. She will go directly to the pharmacy to fill her Bactrim prescription. Increase frequency was prescribed on the Bactrim prescription due to the high risk location of this infection over the joints of the hand. Departure Impression Primary Impression: Abscess, hand Additional Impressions: Encounter for incision and drainage procedure Cellulitis of hand, right Disposition: 01 HOME, SELF-CARE Condition: Improved Departure-Patient Inst. Decision time for Depature: 10:35 Referrals: [facility] (PCP/Family) Primary Care Physician Patient Instructions: Skin Abscess, Abscess Incision and Drainage (DC) Add. Discharge Instructions: Start your antibiotics immediately. Soak your hand in lukewarm water with a couple squirts of the chlorhexidine soap for at least 15 minutes twice daily. This will encourage continued draining of the pelvis. Elevate your hand to the level of your heart is much as possible. You may take ibuprofen up to 600 mg every 6 hours as needed for pain. Take with food or milk to avoid irritation on your stomach. Return to care promptly if you have worsening of symptoms which would include fever over 100, loss of sensation or color in the tip of your finger, spreading redness, or uncontrolled pain. Follow-up with your primary care provider on Saturday. Review the wound culture with your doctor to ensure the antibiotic treatment you are receiving is appropriate. Keep the wound covered as long as it is draining. You may apply antibiotic ointment to the wound to keep the wound from sticking to the dressings. All discharge instructions reviewed with patient and/or family. Voiced understanding. Scripts Sulfamethoxazole/Trimethoprim (Bactrim Ds Tablet) 1 Each Tablet 1 EACH PO TID, #30 TAB Prov: PILI PRADO MD 06/07/18 Copy Copies To 1: SILVINA BEY MD, JOSHUA T MD Jun 07, 2018 10:39
[2018-06-07] MEDS ORDERED: SULF1TAB35 PO (10:44)
[2018-06-07] MEDS ORDERED: CLINDAMYCIN 600 MG/4ML (CLEOCIN) VIAL IM ONE (10:45)
[2018-06-07 11:00] VITALS: BP 140/73
== END 2018-06-07 11:04 | disposition home or self-care (01) ==
LOC: EDUNIT# 10:08 → ER 10:09
DX: L02.511 Cutaneous abscess of right hand (principal); L03.113 Cellulitis of right upper limb; J45.909 Unspecified asthma, uncomplicated; B19.20 Unspecified viral hepatitis C without hepatic coma; Z87.448 Personal history of other diseases of urinary system; Z87.440 Personal history of urinary (tract) infections; Z98.51 Tubal ligation status
CPT/HCPCS: 87070; 87077; 87186; 87205

== ENCOUNTER 2019-01-14 16:22 | Emergency (ER) | payer SELFPAY ==
[~2019-01-14] VITALS: Ht 162.6 cm; Wt 61.4 kg
[~2019-01-14 16:22] MED LIST changes: +SULF1TAB35 PO
--- OUTSIDE RECORDS SUMMARY | 2019-01-14 16:28 | XMS REPORT ---
Author Author Migration, Doctor Organization [facility] Address Unknown Phone Unavailable Care Team Providers Care Technology Analyst Name Role Phone Migration, Doctor Unavailable Unavailable PROBLEMS Type Condition ICD9-CM Code PKT38-MI Code Onset Dates Condition Status SNOMED Code Problem Screening for malignant neoplasm of the cervix V76.2 Active 104439461 Problem Screening examination for venereal disease V74.5 Active 087051140 Problem Unspecified breast screening V76.10 Active 163795737 Problem Special screening examination, human papillomavirus [HPV] V73.81 Active 741019494 Problem Counseling on substance use and abuse V65.42 Active 564625070 Problem Multiple and unspecified open wound of upper limb, without mention of complication 884.0 Active 94898436 Problem Routine gynecological examination V72.31 Active [id number] Problem Carpal tunnel syndrome 354.0 Active 08701176 Problem Acute sinusitis, unspecified 461.9 Active 60172438 Problem Pain in soft tissues of limb 729.5 Active 36098887 Problem Disturbance of skin sensation 782.0 Active 134775732 Problem Cellulitis and abscess of unspecified site 682.9 Active 413043105 Problem Pain in joint, shoulder region 719.41 Active 040326034 Problem Irregular menstrual cycle 626.4 Active 64726588 Problem Unspecified cellulitis and abscess of finger 681.00 Active 900480614 Problem Unspecified inflammatory disease of female pelvic organs and tissues 614.9 Active 049827030 Problem Unspecified vaginitis and vulvovaginitis 616.10 Active 281865153 Problem Obsessive-compulsive disorders 300.3 Active 178348825 Problem Generalized anxiety disorder 300.02 Active 71486056 Problem Major depressive disorder, recurrent episode, in partial or unspecified remission 296.35 Active 79125353 Problem Carpal tunnel syndrome, bilateral upper limbs G56.03 Active 67625854 Problem Dysuria 788.1 Active 63438800 Problem Moderate episode of recurrent major depressive disorder F33.1 Active 407166976 Problem Papanicolaou smear of cervix with low grade squamous intraepithelial lesion (LGSIL) 795.03 Active 521166882 Problem Shortness of breath 786.05 Active 839510586 Problem Major depressive disorder, recurrent episode, severe, without mention of psychotic behavior 296.33 Active 64553649 Problem Major depressive disorder, recurrent episode, moderate 296.32 Active 26971179 Problem Methicillin resistant Staphylococcus aureus 041.12 Active 383268722 Problem ASCUS with positive high 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 [address] [id number] Mar, Dental examination Z01.20 [place] [address] [address] Mar, Pain in right hand M79.641 [place] [address] [address] Oct, [place] [address] [address] Aug, Pyelonephritis N12 [place] [address] [address] January, [place] [address] [address] January, [place] [address] [place] [address] January, ASCUS with positive high 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.9 and Leukorrhea 623.5 [facility] [place] [facility] [address] [place] [address] Dec, [facility] [place] [facility] [address] [place] [id number] [address] Dec, [facility] [place] [facility] [id number] [place] [address] Nov, [facility] [place] [facility] [address] [facility] [id number] [place] [address] Nov, [facility] [place] [facility] [address] [address] Nov, [facility] [place] [facility] [address] [address] Nov, [facility] [place] [facility] [address] [address] Nov, [facility] [place] [facility] [address] [place] [id number] [address] Nov, [facility] [place] [facility] [address] [address] Oct, [facility] [place] [facility] [address] [address] Oct, [facility] [place] [facility] [address] [address] Oct, [facility] [place] [facility] [address] [place] [id number] [address] Oct, [facility] [place] [facility] [address] [address] Oct, [facility] [place] [facility] [address] [address] Oct, [facility] [place] [facility] [address] [place] [address] Aug, [facility] [place] [facility] [address] [id number] [place] [address] Aug, [facility] [place] [facility] [address] [id number] [place] [address] Jun, [facility] [place] [facility] [address] [id number] [place] [address] Jun, [facility] [place] [facility] [address] [id number] [place] [address]- [address] Jun, [facility] [place] [facility] [address] [id number] [place] [address]- [address] Jun, [facility] [place] [facility] [address] [id number] [place] [address]- [address] Jun, [facility] [place] [facility] [address] [id number] [place] [address]- [address] Jun, [facility] [place] [facility] [address] [id number] [place] [address]- [address] May, [facility] [place] [facility] [address] [id number] [place] [address] 28[address] May, [facility] [place] [facility] [address] [id number] [place] [address]- 8532 Apr, [facility] [place] [facility] [address] [id number] [place] [address]- [address] Apr, [facility] [place] [facility] [address] [id number] [place] [address]- 118[address] Mar, [facility] [place] [facility] [address] [id number] [place] [address]- 9314 Mar, [facility] [place] [facility] [address] [id number] [place] [address]- 1105 Mar, [facility] [place] [facility] [address] [id number] [place] [address]- 9314 Mar, [facility] [place] [facility] [address] [id number] [place] [address]- 49[address] Feb, [facility] [place] [facility] [address] [id number] [place] [address]- 5535 Feb, [facility] [place] [facility] [address] [id number] [place] [address]- 1259 January, [facility] [place] [facility] [address] [id number] [place] [address]- 1877 January, [facility] [place] [facility] [address] [id number] [place] [address]- 6[address] January, [facility] [place] [facility] [address] [id number] [place] [address]- 1408 January, [facility] [place] [facility] [address] [id number] [place] [address]- 0789 January, [facility] [place] [facility] [address] [id number] [place] [address]- 6095 January, [facility] [place] [facility] [address] [id number] [place] [address]- 4977 Dec, [facility] [place] [facility] [address] [id number] [place] [address]- 0493 Dec, [facility] [place] [facility] [address] [id number] [place] [address]- 5294 Nov, [facility] [place] [facility] [address] [id number] [place] [address]- 0294 Nov, [facility] [place] [facility] [address] [id number] [place] [address]- 49[address] Oct, [facility] [place] [facility] [address] [id number] [place] [address]- 0012 Oct, [facility] [place] [facility] [address] [id number] [place] [address]- 6[address] Sep, [facility] [place] [facility] [address] [id number] [place] [address]- [address] Sep, [facility] [address] [id number] [place] [address]- 6[address] Sep, [facility] [place] [facility] [address] [facility] [id number] [place] [address]- 94[address] Sep, [facility] [address] [facility] [id number] [place] [address]- [address] Aug, [facility] [place] [facility] [address] [id number] [place] [address]- 488[address] Aug, [facility] [place] [facility] [address] [facility] [id number] [place] [address]- [address] Jul, [facility] [place] [facility] [address] [id number] [place] [address]- 7[address] Jul, [facility] [address] [address]- [address] Jun, [facility] [place] [facility] [address] [id number] [place] [address]- 6363 May, [facility] [place] [facility] [address] [place] [id number] [place] [address]- 164[address] Mar, [facility] [place] [facility] [address] [place] [id number] [place] [address]- 8689 Feb, [facility] [place] [facility] [address] [id number] [place] [address]- 7[address] Feb, [facility] [place] [facility] [address] [id number] [place] [address]- 6[address] Feb, [facility] [place] [facility] [address] [id number] [place] [address]- 9284 January, [facility] [place] [facility] [address] [facility] [id number] [place] [address]- [address]99 30 Dec, 2012 [facility] [place] [facility] [address] [facility] [id number] [place] [address]- [address]605 15 Dec, 2012 [facility] [place] [facility] [address] [id number] [place] [address]- [address] 15 Dec, 2012 [facility] [address] [id number] [place] [address]- 9274 09 Dec, 2012 [facility] [place] [facility] [address] [id number] [place] [address]- 2546 02 Dec, 2012 [facility] [address] [id number] [place] [address]- 6626 Nov, [facility] [place] [facility] [address] [id number] [place] [address]- 4064 Oct, [facility] [place] [facility] [address] [id number] [place] [address]- 8396 Sep, [facility] [place] [facility] [address] [id number] [place] [address]- 9113 Sep, [facility] [address] [id number] [place] [address]- 8954 Sep, [facility] [address] [id number] [place] [address]- 0306 Sep, [facility] [address] [id number] [place] [address]- 3754 Aug, [facility] [address] [id number] [place] [address]- 4802 Aug, [facility] [address] [id number] [place] [address]- 1308 Aug, [facility] [place] [facility] [address] [id number] [place] [address]- 7305 Aug, [facility] [place] [facility] [address] [id number] [place] [address] 2546 Aug, [facility] [place] [facility] [address] [id number] [place] [address]- 2546 18 Aug, 2012 [facility] [place] [facility] [address] [id number] [place] [address]- 7909 18 Aug, 2012 [facility] [place] [facility] [address] [id number] [place] [address]- 9656 18 Aug, 2012 [facility] [place] [facility] [address] [id number] [place] [address]- 1056 Aug, [facility] [place] [facility] [address] [facility] [id number] [place] [address]- 3186 Aug, [facility] [place] [facility] [address] [id number] [place] [address]- 9705 Aug, [facility] [place] [facility] [address] [id number] [place] [address]- 8012 Aug, [facility] [place] [facility] [address] [id number] [place] [address]- 6870 Aug, [facility] [place] [facility] [address] [facility] [id number] [place] [address]- 4352 Aug, [facility] [place] [facility] [address] [id number] [place] [address]- 8932 Aug, [facility] [place] [facility] [address] [id number] [place] [address]- 8358 Aug, [facility] [place] [facility] [address] [facility] [id number] [place] [address]- 5701 Jul, [facility] [place] [facility] [address] [id number] [place] [address]- 1028 Jul, [facility] [place] [facility] [address] [id number] [place] [address]- 7783 Jul, [facility] [place] [facility] [address] [id number] [place] [address]- 6176 Jul, [facility] [place] [facility] [address] [facility] [id number] [place] [address]- 4587 Jun, [facility] [place] [facility] [address] [facility] [id number] [place] [address]- 4242 30 May, 2012 [facility] [place] [facility] [address] [id number] [place] [address]- 6836 19 May, 2012 [facility] [place] [facility] [address] [id number] [place] [address] 2546 14 May, 2012 [facility] [place] [facility] [address] [id number] [place] [address] 2546 13 May, 2012 [facility] [place] [facility] [address] [id number] [place] [address] 2546 11 May, 2012 [facility] [place] [facility] [address] [id number] [place] [address] 2546 10 May, 2012 [facility] [place] [facility] [address] [id number] [place] [address]- 7336 08 May, 2012 [facility] [place] [facility] [address] [id number] [place] [address]- 4247 28 Apr, 2012 [facility] [place] [facility] [address] [id number] [place] [address]- 1376 Apr, [facility] [place] [facility] [address] [id number] [place] [address]- 4422 Apr, [facility] [place] [facility] [address] [id number] [place] [address]- 2028 Apr, [facility] [place] [facility] [address] [id number] [place] [address]- 2988 Mar, [facility] [place] [facility] [address] [id number] [place] [address] 2546 Mar, [facility] [place] [facility] [address] [id number] [place] [address]- 2540 Mar, [facility] [place] [facility] [address] [id number] [place] [address] 2546 Mar, [facility] [place] [facility] [address] [id number] [place] [address]- 2546 Mar, [facility] [place] [facility] [address] [id number] [place] [address]- 2547 Mar, [facility] [address] [facility] [id number] [place] [address]- 2156 Mar, [facility] [address] [facility] [id number] [place] [address]- 3726 January, [facility] [address] [facility] [id number] [place] [address]- 3079 Dec, [facility] [address] [facility] [id number] [place] [address]- 9066 Dec, IMMUNIZATIONS No Known Immunizations SOCIAL HISTORY Never Assessed REASON FOR VISIT EMR-[facility] PLAN OF CARE VITAL SIGNS MEDICATIONS Unknown [...]
--- OUTSIDE RECORDS SUMMARY | 2019-01-14 16:28 | XMS REPORT ---
Author Author Migration, Doctor Organization 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 Name Role Phone Migration, Doctor Unavailable Unavailable PROBLEMS Type Condition ICD9-CM Code XDW43-GC Code Onset Dates Condition Status SNOMED Code Problem Screening for malignant neoplasm of the cervix V76.2 Active 998711872 Problem Screening examination for venereal disease V74.5 Active 434155460 Problem Unspecified breast screening V76.10 Active 452789764 Problem Special screening examination, human papillomavirus [HPV] V73.81 Active 891856190 Problem Counseling on substance use and abuse V65.42 Active 251865194 Problem Multiple and unspecified open wound of upper limb, without mention of complication 884.0 Active 94859624 Problem Routine gynecological examination V72.31 Active [id number] Problem Carpal tunnel syndrome 354.0 Active 28468951 Problem Acute sinusitis, unspecified 461.9 Active 82227305 Problem Pain in soft tissues of limb 729.5 Active 76555548 Problem Disturbance of skin sensation 782.0 Active 269364586 Problem Cellulitis and abscess of unspecified site 682.9 Active 863928022 Problem Pain in joint, shoulder region 719.41 Active 519685448 Problem Irregular menstrual cycle 626.4 Active 73479792 Problem Unspecified cellulitis and abscess of finger 681.00 Active 795823238 Problem Unspecified inflammatory disease of female pelvic organs and tissues 614.9 Active 463776058 Problem Unspecified vaginitis and vulvovaginitis 616.10 Active 238818746 Problem Obsessive-compulsive disorders 300.3 Active 705884480 Problem Generalized anxiety disorder 300.02 Active 69972537 Problem Major depressive disorder, recurrent episode, in partial or unspecified remission 296.35 Active 48155382 Problem Carpal tunnel syndrome, bilateral upper limbs G56.03 Active 01903792 Problem Dysuria 788.1 Active 13737173 Problem Moderate episode of recurrent major depressive disorder F33.1 Active 048294114 Problem Papanicolaou smear of cervix with low grade squamous intraepithelial lesion (LGSIL) 795.03 Active 900769943 Problem Shortness of breath 786.05 Active 727802913 Problem Major depressive disorder, recurrent episode, severe, without mention of psychotic behavior 296.33 Active 56760064 Problem Major depressive disorder, recurrent episode, moderate 296.32 Active 42810281 Problem Methicillin resistant Staphylococcus aureus 041.12 Active 483210059 Problem 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 [address] [id number] Mar, Dental examination Z01.20 [place] [address] [address] Mar, Pain in right hand M79.641 [place] [address] [address] Oct, [place] [address] [address] Aug, Pyelonephritis N12 [place] [address] [address] January, [place] [address] [address] January, [place] [address] [place] [address] January, ASCUS with positive high 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.9 and Leukorrhea 623.5 [facility] [place] [facility] [id number] [place] [address] Dec, [facility] [place] [facility] [address] [id number] [address] Dec, [facility] [place] [facility] [id number] [place] [address] Nov, [facility] [place] [facility] [address] [facility] [id number] [place] [address] Nov, [facility] [place] [facility] [address] [address] Nov, [facility] [place] [facility] [address] [address] Nov, [facility] [place] [facility] [address], [place] [address] Nov, [facility] [place] [facility] [address] [id number] [address] Nov, [facility] [place] [facility] [address], [place] [address] Oct, [facility] [place] [facility] [address], [place] [address] Oct, [facility] [place] [facility] [address], [place] [address] Oct, [facility] [place] [facility] [address] [id number] [address] Oct, [facility] [place] [facility] [address] [address] Oct, [facility] [place] [facility] [address] [address] Oct, [facility] [place] [facility] [address] [place] [address] Aug, [facility] [place] [facility] [address] [id number] [place] [address]- [address] Aug, [facility] [place] [facility] [address] [id number] [place] [address] Jun, [facility] [place] [facility] [address] [id number] [place] [address] Jun, [facility] [place] [facility] [address] [id number] [place] [address]- [address] Jun, [facility] [place] [facility] [address] [id number] [place] [address]- [address] Jun, [facility] [place] [facility] [address] [id number] [place] [address]- 114[address] Jun, [facility] [place] [facility] [address] [id number] [place] [address]- [address] Jun, [facility] [place] [facility] [address] [id number] [place] [address]- 99[address] May, [facility] [place] [facility] [address] [id number] [place] [address]- [address] May, [facility] [place] [facility] [address] [id number] [place] [address]- [address] Apr, [facility] [place] [facility] [address] [id number] [place] [address]- [address] Apr, [facility] [place] [facility] [address] [id number] [place] [address]- [address] Mar, [facility] [place] [facility] [address] [id number] [place] [address]- [address] Mar, [facility] [place] [facility] [address] [id number] [place] [address]- [address] Mar, [facility] [place] [facility] [address] [id number] [place] [address]- 34[address] Mar, [facility] [place] [facility] [address] [id number] [place] [address]- [address] Feb, [facility] [place] [facility] [address] [id number] [place] [address]- 8975 Feb, [facility] [place] [facility] [address] [id number] [place] [address]- [address] January, [facility] [place] [facility] [address] [id number] [place] [address]- 7226 January, [facility] [place] [facility] [address] [id number] [place] [address]- 49[address] January, [facility] [place] [facility] [address] [id number] [place] [address]- [address] January, [facility] [place] [facility] [address] [id number] [place] [address]- 12[address] January, [facility] [place] [facility] [address] [id number] [place] [address]- 2553 January, [facility] [place] [facility] [address] [id number] [place] [address]- 50[address] Dec, [facility] [place] [facility] [address] [id number] [place] [address]- [address] Dec, [facility] [place] [facility] [address] [id number] [place] [address]- 26[address] Nov, [facility] [place] [facility] [address] [id number] [place] [address]- 1593 Nov, [facility] [place] [facility] [address] [id number] [place] [address]- [address] Oct, [facility] [place] [facility] [address] [id number] [place] [address]- 0940 Oct, [facility] [place] [facility] [address] [id number] [place] [address]- [address] Sep, [facility] [place] [facility] [address] [id number], [place] [address]- [address] Sep, [facility] [address] [id number] [place] [address]- 37[address] Sep, [facility] [place] [facility] [address] [facility] [id number], [place] [address]- [address] Sep, [facility] [address] [facility] [id number] [place] [address]- [address] Aug, [facility] [place] [facility] [address] [id number] [place] [address]- 8907 Aug, [facility] [place] [facility] [address] [facility] [id number] [place] [address]- 0187 Jul, [facility] [place] [facility] [address] [id number] [place] [address]- 3[address] Jul, [facility] [address], [place] [address]- [address] Jun, [facility] [place] [facility] [address] [id number] [place] [address]- [address] May, [facility] [place] [facility] [address] [place] [id number] [place] [address]- [address] Mar, [facility] [place] [facility] [address] [place] [id number] [place] [address]- 12[address] Feb, [facility] [place] [facility] [address] [id number], [place] [address]- [address] Feb, [facility] [place] [facility] [address] [id number], [place] [address]- [address] Feb, [facility] [place] [facility] [address] [id number], [place] [address]- [address] January, [facility] [place] [facility] [address] [facility] [id number], [place] [address]- [address] 30 Dec, 2012 [facility] [place] [facility] [address] [facility] [id number], [place] [address]- [address] 15 Dec, 2012 [facility] [place] [facility] [address] [id number] [place] [address]- 3746 15 Dec, 2012 [facility] [address] [id number] [place] [address]- 30[address] 09 Dec, 2012 [facility] [place] [facility] [address] [id number] [place] [address]- 2546 02 Dec, 2012 [facility] [address] [id number] [place] [address]- 2716 Nov, [facility] [place] [facility] [address] [id number] [place] [address]- 1114 Oct, [facility] [place] [facility] [address] [id number] [place] [address]- 5786 Sep, [facility] [place] [facility] [address] [id number] [place] [address]- 8563 Sep, [facility] [address] [id number] [place] [address]- 3653 Sep, [facility] [address] [id number] [place] [address]- 6184 Sep, [facility] [address] [id number] [place] [address]- 0058 Aug, [facility] [address] [id number] [place] [address]- 0488 Aug, [facility] [address] [id number] [place] [address]- 8951 Aug, [facility] [place] [facility] [address] [id number] [place] [address]- 0602 Aug, [facility] [place] [facility] [address] [id number] [place] [address] 2546 Aug, [facility] [place] [facility] [address] [id number] [place] [address]- 2546 18 Aug, 2012 [facility] [place] [facility] [address] [id number] [place] [address]- 8682 18 Aug, 2012 [facility] [place] [facility] [address] [id number] [place] [address]- 2522 18 Aug, 2012 [facility] [place] [facility] [address] [id number] [place] [address]- 0776 Aug, [facility] [place] [facility] [address] [facility] [id number] [place] [address]- 8396 Aug, [facility] [place] [facility] [address] [id number] [place] [address]- 8286 Aug, [facility] [place] [facility] [address] [id number] [place] [address]- 1292 Aug, [facility] [place] [facility] [address] [id number] [place] [address]- 9010 Aug, [facility] [place] [facility] [address] [facility] [id number] [place] [address]- 0986 Aug, [facility] [place] [facility] [address] [id number], [place] [address]- 4029 Aug, [facility] [place] [facility] [address] [id number] [place] [address]- 0101 Aug, [facility] [place] [facility] [address] [facility] [id number], [place] [address]- 57[address] Jul, [facility] [place] [facility] [address] [id number], [place] [address]- [address] Jul, [facility] [place] [facility] [address] [id number], [place] [address]- 6408 Jul, [facility] [place] [facility] [address] [id number], [place] [address]- 2[address] Jul, [facility] [place] [facility] [address] [facility] [id number], [place] [address]- 7034 Jun, [facility] [place] [facility] [address] [facility] [id number], [place] [address]- 8795 30 May, 2012 [facility] [place] [facility] [address] [id number] [place] [address]- 4806 19 May, 2012 [facility] [place] [facility] [address] [id number] [place] [address] 2546 14 May, 2012 [facility] [place] [facility] [address] [id number] [place] [address] 2546 13 May, 2012 [facility] [place] [facility] [address] [id number] [place] [address] 2546 11 May, 2012 [facility] [place] [facility] [address] [id number] [place] [address] 2546 10 May, 2012 [facility] [place] [facility] [address] [id number] [place] [address]- 4356 08 May, 2012 [facility] [place] [facility] [address] [id number] [place] [address]- 9948 28 Apr, 2012 [facility] [place] [facility] [address] [id number] [place] [address]- 1786 Apr, [facility] [place] [facility] [address] [id number] [place] [address]- 6096 Apr, [facility] [place] [facility] [address] [id number] [place] [address]- 6522 Apr, [facility] [place] [facility] [address] [id number] [place] [address]- 0801 Mar, [facility] [place] [facility] [address] [id number] [place] [address] 2546 Mar, [facility] [place] [facility] [address] [id number] [place] [address]- 2548 Mar, [facility] [place] [facility] [address] [id number] [place] [address] 2546 Mar, [facility] [place] [facility] [address] [id number] [place] [address]- 2546 Mar, [facility] [place] [facility] [address] [id number] [place] [address]- 2544 Mar, [facility] [address] [facility] [id number], [place] [address]- [address] Mar, [facility] [address] [id number], [place] [address]- 7026 January, [facility] [address] [id number], [place] [address]- [address] Dec, [facility] [address] [id number], [place] [address]- 3746 Dec, IMMUNIZATIONS No Known Immunizations SOCIAL HISTORY Never Assessed REASON FOR VISIT EMR-[facility] PLAN OF CARE VITAL SIGNS MEDICATIONS Unknown [...]
--- OUTSIDE RECORDS SUMMARY | 2019-01-14 16:28 | XMS REPORT ---
Author Author Migration, Doctor Organization [facility] Address Unknown Phone Unavailable Care Team Providers [facility] Name Role Phone Migration, Doctor Unavailable Unavailable PROBLEMS Type Condition ICD9-CM Code [id number] Code Onset Dates Condition Status SNOMED Code Problem Screening for malignant neoplasm of the cervix V76.2 Active 998415743 Problem Screening examination for venereal disease V74.5 Active 636562066 Problem Unspecified breast screening V76.10 Active 885455916 Problem Special screening examination, human papillomavirus [HPV] V73.81 Active 339604025 Problem Counseling on substance use and abuse V65.42 Active 421096590 Problem Multiple and unspecified open wound of upper limb, without mention of complication 884.0 Active 27218871 Problem Routine gynecological examination V72.31 Active 414544808623892 Problem Carpal tunnel syndrome 354.0 Active 17743885 Problem Acute sinusitis, unspecified 461.9 Active 94846827 Problem Pain in soft tissues of limb 729.5 Active 60014441 Problem Disturbance of skin sensation 782.0 Active 673423910 Problem Cellulitis and abscess of unspecified site 682.9 Active 311858390 Problem Pain in joint, shoulder region 719.41 Active 062640578 Problem Irregular menstrual cycle 626.4 Active 63870664 Problem Unspecified cellulitis and abscess of finger 681.00 Active 006505243 Problem Unspecified inflammatory disease of female pelvic organs and tissues 614.9 Active 373066846 Problem Unspecified vaginitis and vulvovaginitis 616.10 Active 085913052 Problem Obsessive-compulsive disorders 300.3 Active 971439106 Problem Generalized anxiety disorder 300.02 Active 25954618 Problem Major depressive disorder, recurrent episode, in partial or unspecified remission 296.35 Active 61950813 Problem Carpal tunnel syndrome, bilateral upper limbs G56.03 Active 13242900 Problem Dysuria 788.1 Active 83445900 Problem Moderate episode of recurrent major depressive disorder F33.1 Active 861704001 Problem Papanicolaou smear of cervix with low grade squamous intraepithelial lesion (LGSIL) 795.03 Active 872476581 Problem Shortness of breath 786.05 Active 588057530 Problem Major depressive disorder, recurrent episode, severe, without mention of psychotic behavior 296.33 Active 12921685 Problem Major depressive disorder, recurrent episode, moderate 296.32 Active 73692765 Problem Methicillin resistant Staphylococcus aureus 041.12 Active 469166674 Problem ASCUS with positive high 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.9 Active 421964653 ALLERGIES No Information ENCOUNTERS Encounter Location Date Diagnosis [place] [address] [address] Apr, [place] [address] [address] Apr, Other infective acute otitis externa of right ear H60.391 [place] [address] [address] Dec, Left shoulder pain, unspecified chronicity M25.512 [place] [address] [address] Mar, Carpal tunnel syndrome, bilateral upper limbs G56.03 and Moderate episode of recurrent major depressive disorder F33.1 [facility] [address] [id number] Mar, Dental examination Z01.20 [place] [address] [address] Mar, Pain in right hand M79.641 [place] [address] [address] Oct, [place] [address] [address] Aug, Pyelonephritis N12 [place] [address] [address] January, [place] [address] [address] January, [place] [address] [place] [address] January, ASCUS with positive high 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.9 and Leukorrhea 623.5 [facility] [place] [facility] [id number] [address] Dec, [facility] [place] [facility] [address] [id number] [address] Dec, [facility] [place] [facility] [id number] [place] [address] Nov, [facility] [place] [facility] [address] [facility] [id number] [place] [address] Nov, [facility] [place] [facility] [id number] [address] Nov, [facility] [place] [facility] [address] [address] Nov, [facility] [place] [facility] [address] [address] Nov, [facility] [place] [facility] [address] [id number] [address] Nov, [facility] [place] [facility] [address] [address] Oct, [facility] [place] [facility] [id number] [address] Oct, [facility] [place] [facility] [id number] [address] Oct, [facility] [place] [facility] [address] [id number] [address] Oct, [facility] [place] [facility] [id number] [address] Oct, [facility] [place] [facility] [id number] [address] Oct, [facility] [place] [facility] [id number] [address] Aug, [facility] [place] [facility] [address] [id number] [place] [address] Aug, [facility] [place] [facility] [address] [id number] [place] [address] Jun, [facility] [place] [facility] [address] [id number] [place] [address] Jun, [facility] [place] [facility] [address] [id number] [place] [address]- [address] Jun, [facility] [place] [facility] [address] [id number] [place] [address]- 117[address] Jun, [facility] [place] [facility] [address] [id number] [place] [address]- [address] Jun, [facility] [place] [facility] [address] [id number] [place] [address]- 1010 Jun, [facility] [place] [facility] [address] [id number] [place] [address] May, [facility] [place] [facility] [address] [id number] [place] [address]- [address] May, [facility] [place] [facility] [address] [id number] [place] [address]- 8885 Apr, [facility] [place] [facility] [address] [id number] [place] [address]- 9244 Apr, [facility] [place] [facility] [address] [id number] [place] [address] 08[address] Mar, [facility] [place] [facility] [address] [id number] [place] [address]- 8033 Mar, [facility] [place] [facility] [address] [id number] [place] [address]- [address] Mar, [facility] [place] [facility] [address] [id number] [place] [address]- 0712 Mar, [facility] [place] [facility] [address] [id number] [place] [address]- 6228 Feb, [facility] [place] [facility] [address] [id number] [place] [address]- 0069 Feb, [facility] [place] [facility] [address] [id number] [place] [address]- 4540 January, [facility] [place] [facility] [address] [id number] [place] [address]- 8667 January, [facility] [place] [facility] [address] [id number] [place] [address]- 6798 January, [facility] [place] [facility] [address] [id number] [place] [address]- 2295 January, [facility] [place] [facility] [address] [id number] [place] [address]- 1144 January, [facility] [place] [facility] [address] [id number] [place] [address]- 4369 January, [facility] [place] [facility] [address] [id number] [place] [address]- 9867 Dec, [facility] [place] [facility] [address] [id number] [place] [address]- 9664 Dec, [facility] [place] [facility] [address] [id number] [place] [address]- 0868 Nov, [facility] [place] [facility] [address] [id number] [place] [address]- 3349 Nov, [facility] [place] [facility] [address] [id number] [place] [address]- 2570 Oct, [facility] [place] [facility] [address] [id number] [place] [address]- 5009 Oct, [facility] [place] [facility] [address] [id number] [place] [address]- 1833 Sep, [facility] [place] [facility] [address] [id number], [place] [address]- [address] Sep, [facility] [address] [id number] [place] [address]- 5310 Sep, [facility] [place] [facility] [address] [facility] [id number], [place] [address]- [address] Sep, [facility] [address] [facility] [id number] [place] [address]- 8061 Aug, [facility] [place] [facility] [address] [id number] [place] [address]- 3487 Aug, [facility] [place] [facility] [address] [facility] [id number] [place] [address]- 0649 Jul, [facility] [place] [facility] [address] [id number] [place] [address]- 0174 Jul, [facility] [address] [address]- [address] Jun, [facility] [place] [facility] [address] [id number] [place] [address]- 0102 May, [facility] [place] [facility] [address] [place] [id number] [address]- [address] Mar, [facility] [place] [facility] [address] [place] [id number] [address]- [address] Feb, [facility] [place] [facility] [address] [id number], [place] [address]- [address]289 Feb, [facility] [place] [facility] [address] [id number], [place] [address]- 6[address] Feb, [facility] [place] [facility] [address] [id number], [place] [address]- [address]442 January, [facility] [place] [facility] [address] [facility] [id number], [place] [address]- [address] 30 Dec, 2012 [facility] [place] [facility] [address] [facility] [id number], [place] [address]- 1577 15 Dec, 2012 [facility] [place] [facility] [address] [id number] [place] [address]- 7308 15 Dec, 2012 [facility] [address] [id number] [place] [address]- 8452 09 Dec, 2012 [facility] [place] [facility] [address] [id number] [place] [address]- 2546 02 Dec, 2012 [facility] [address] [id number] [place] [address]- 2736 Nov, [facility] [place] [facility] [address] [id number] [place] [address]- 3513 Oct, [facility] [place] [facility] [address] [id number] [place] [address]- 7426 Sep, [facility] [place] [facility] [address] [id number] [place] [address]- 3355 Sep, [facility] [address] [id number] [place] [address]- 6768 Sep, [facility] [address] [id number] [place] [address]- 0285 Sep, [facility] [address] [id number] [place] [address]- 1760 Aug, [facility] [address] [id number] [place] [address]- 2709 Aug, [facility] [address] [id number] [place] [address]- 8074 Aug, [facility] [place] [facility] [address] [id number] [place] [address]- 2495 Aug, [facility] [place] [facility] [address] [id number] [place] [address] 2546 Aug, [facility] [place] [facility] [address] [id number] [place] [address]- 2546 18 Aug, 2012 [facility] [place] [facility] [address] [id number] [place] [address]- 8517 18 Aug, 2012 [facility] [place] [facility] [address] [id number] [place] [address]- 8760 18 Aug, 2012 [facility] [place] [facility] [address] [id number] [place] [address]- 0856 Aug, [facility] [place] [facility] [address] [facility] [id number] [place] [address]- 1016 Aug, [facility] [place] [facility] [address] [id number] [place] [address]- 5378 Aug, [facility] [place] [facility] [address] [id number] [place] [address]- 5806 Aug, [facility] [place] [facility] [address] [id number] [place] [address]- 5231 Aug, [facility] [place] [facility] [address] [facility] [id number] [place] [address]- 8872 Aug, [facility] [place] [facility] [address] [id number], [place] [address]- 2699 Aug, [facility] [place] [facility] [address] [id number] [place] [address]- 3364 Aug, [facility] [place] [facility] [address] [facility] [id number], [place] [address]- 5951 Jul, [facility] [place] [facility] [address] [id number], [place] [address]- 4320 Jul, [facility] [place] [facility] [address] [id number], [place] [address]- 7042 Jul, [facility] [place] [facility] [address] [id number], [place] [address]- 1716 Jul, [facility] [place] [facility] [address] [facility] [id number], [place] [address]- 9900 Jun, [facility] [place] [facility] [address] [facility] [id number], [place] [address]- 9346 30 May, 2012 [facility] [place] [facility] [address] [id number] [place] [address]- 0636 19 May, 2012 [facility] [place] [facility] [address] [id number] [place] [address] 2546 14 May, 2012 [facility] [place] [facility] [address] [id number] [place] [address] 2546 13 May, 2012 [facility] [place] [facility] [address] [id number] [place] [address] 2546 11 May, 2012 [facility] [place] [facility] [address] [id number] [place] [address] 2546 10 May, 2012 [facility] [place] [facility] [address] [id number] [place] [address]- 4876 08 May, 2012 [facility] [place] [facility] [address] [id number] [place] [address]- 0208 28 Apr, 2012 [facility] [place] [facility] [address] [id number] [place] [address]- 1116 Apr, [facility] [place] [facility] [address] [id number] [place] [address]- 7653 Apr, [facility] [place] [facility] [address] [id number] [place] [address]- 0007 Apr, [facility] [place] [facility] [address] [id number] [place] [address]- 4238 Mar, [facility] [place] [facility] [address] [id number] [place] [address] 2546 Mar, [facility] [place] [facility] [address] [id number] [place] [address]- 2547 Mar, [facility] [place] [facility] [address] [id number] [place] [address] 2546 Mar, [facility] [place] [facility] [address] [id number] [place] [address]- 2546 Mar, [facility] [place] [facility] [address] [id number] [place] [address]- 2543 Mar, [facility] [address] [facility] [id number], [place] [address]- 6626 Mar, [facility] [address] [facility] [id number], [place] [address]- 6406 January, [facility] [address] [facility] [id number], [place] [address]- 1384 Dec, [facility] [address] [facility] [id number], [place] [address]- [address]156 Dec, IMMUNIZATIONS No Known Immunizations SOCIAL HISTORY Never Assessed REASON FOR VISIT EMR[place] [place]AN OF CARE VITAL SIGNS MEDICATIONS Unknown [...]
--- OUTSIDE RECORDS SUMMARY | 2019-01-14 16:28 | XMS REPORT ---
Author Author Migration, Doctor Organization [facility] Address Unknown Phone Unavailable Care Team Providers Care Extraction Supervisor Name Role Phone Migration, Doctor Unavailable Unavailable PROBLEMS Type Condition ICD9-CM Code BJA38-MZ Code Onset Dates Condition Status SNOMED Code Problem Screening for malignant neoplasm of the cervix V76.2 Active 712344798 Problem Screening examination for venereal disease V74.5 Active 476719103 Problem Unspecified breast screening V76.10 Active 928338126 Problem Special screening examination, human papillomavirus [HPV] V73.81 Active 960000342 Problem Counseling on substance use and abuse V65.42 Active 298134283 Problem Multiple and unspecified open wound of upper limb, without mention of complication 884.0 Active 14290432 Problem Routine gynecological examination V72.31 Active [id number] Problem Carpal tunnel syndrome 354.0 Active 43384173 Problem Acute sinusitis, unspecified 461.9 Active 18668878 Problem Pain in soft tissues of limb 729.5 Active 63937582 Problem Disturbance of skin sensation 782.0 Active 840606891 Problem Cellulitis and abscess of unspecified site 682.9 Active 687863285 Problem Pain in joint, shoulder region 719.41 Active 473597415 Problem Irregular menstrual cycle 626.4 Active 25557108 Problem Unspecified cellulitis and abscess of finger 681.00 Active 004375056 Problem Unspecified inflammatory disease of female pelvic organs and tissues 614.9 Active 023948376 Problem Unspecified vaginitis and vulvovaginitis 616.10 Active 375193420 Problem Obsessive-compulsive disorders 300.3 Active 759966087 Problem Generalized anxiety disorder 300.02 Active 32226188 Problem Major depressive disorder, recurrent episode, in partial or unspecified remission 296.35 Active 34658612 Problem Carpal tunnel syndrome, bilateral upper limbs G56.03 Active 61195607 Problem Dysuria 788.1 Active 53062054 Problem Moderate episode of recurrent major depressive disorder F33.1 Active 292928962 Problem Papanicolaou smear of cervix with low grade squamous intraepithelial lesion (LGSIL) 795.03 Active 333670505 Problem Shortness of breath 786.05 Active 955298441 Problem Major depressive disorder, recurrent episode, severe, without mention of psychotic behavior 296.33 Active 41897137 Problem Major depressive disorder, recurrent episode, moderate 296.32 Active 85830451 Problem Methicillin resistant Staphylococcus aureus 041.12 Active 884349755 Problem ASCUS with positive high 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.9 Active 214418271 ALLERGIES No Information ENCOUNTERS Encounter Location Date Diagnosis [place] [address] [address] Apr, [place] [address] [address] Apr, Other infective acute otitis externa of right ear H60.391 [place] [address] [address] Dec, Left shoulder pain, unspecified chronicity M25.512 [place] [address] [address] Mar, Carpal tunnel syndrome, bilateral upper limbs G56.03 and Moderate episode of recurrent major depressive disorder F33.1 [facility] [address] [id number] Mar, Dental examination Z01.20 [place] [address] [address] Mar, Pain in right hand M79.641 [place] [address] [address] Oct, [place] [address] [address] Aug, Pyelonephritis N12 [place] [address] [address] January, [place] [address] [address] January, [place] [address] [place] [address] January, ASCUS with positive high 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.9 and Leukorrhea 623.5 [facility] [place] [facility] [id number] [place] [address] Dec, [facility] [place] [facility] [address] [place] [id number] [address] Dec, [facility] [place] [facility] [id number] [place] [address] Nov, [facility] [place] [facility] [address] [facility] [place] [id number] [place] [address] Nov, [facility] [place] [facility] [address] [address] Nov, [facility] [place] [facility] [address] [address] Nov, [facility] [place] [facility] [address] [address] Nov, [facility] [place] [facility] [address] [id number] [address] Nov, [facility] [place] [facility] [address] [address] Oct, [facility] [place] [facility] [address] [address] Oct, [facility] [place] [facility] [address] [address] Oct, [facility] [place] [facility] [address] [id number] [address] Oct, [facility] [place] [facility] [address] [address] Oct, [facility] [place] [facility] [address] [address] Oct, [facility] [place] [facility] [address] [place] [address] Aug, [facility] [place] [facility] [address] [id number] [place] [address] Aug, [facility] [place] [facility] [address] [id number] [place] [address] Jun, [facility] [place] [facility] [address] [id number] [place] [address] Jun, [facility] [place] [facility] [address] [id number] [place] [address]- [address] Jun, [facility] [place] [facility] [address] [id number] [place] [address]- [address] Jun, [facility] [place] [facility] [address] [id number] [place] [address]- 4679 Jun, [facility] [place] [facility] [address] [id number] [place] [address]- [address] Jun, [facility] [place] [facility] [address] [id number] [place] [address]- 116[address] May, [facility] [place] [facility] [address] [id number] [place] [address]- [address] May, [facility] [place] [facility] [address] [id number] [place] [address]- 2163 Apr, [facility] [place] [facility] [address] [id number] [place] [address]- [address]67 Apr, [facility] [place] [facility] [address] [id number] [place] [address]- [address] Mar, [facility] [place] [facility] [address] [id number] [place] [address]- [address] Mar, [facility] [place] [facility] [address] [id number] [place] [address]- [address] Mar, [facility] [place] [facility] [address] [id number] [place] [address]- 7583 Mar, [facility] [place] [facility] [address] [id number] [place] [address]- 260[address] Feb, [facility] [place] [facility] [address] [id number] [place] [address]- [address] Feb, [facility] [place] [facility] [address] [id number] [place] [address]- [address] January, [facility] [place] [facility] [address] [id number] [place] [address]- 384[address] January, [facility] [place] [facility] [address] [id number] [place] [address]- 1755 January, [facility] [place] [facility] [address] [id number] [place] [address]- 239[address] January, [facility] [place] [facility] [address] [id number] [place] [address]- 56[address] January, [facility] [place] [facility] [address] [id number] [place] [address]- 1801 January, [facility] [place] [facility] [address] [id number] [place] [address]- [address] Dec, [facility] [place] [facility] [address] [id number] [place] [address]- 9[address] Dec, [facility] [place] [facility] [address] [id number] [place] [address]- [address] Nov, [facility] [place] [facility] [address] [id number] [place] [address]- 53[address] Nov, [facility] [place] [facility] [address] [id number] [place] [address]- 9069 Oct, [facility] [place] [facility] [address] [id number] [place] [address]- 6969 Oct, [facility] [place] [facility] [address] [id number] [place] [address]- 1717 Sep, [facility] [place] [facility] [address] [id number] [address]- [address] Sep, [facility] [address] [id number] [place] [address]- 5908 Sep, [facility] [place] [facility] [address] [facility] [place] [id number], [place] [address]- [address] Sep, [facility] [address] [facility] [place] [id number] [place] [address]- 1833 Aug, [facility] [place] [facility] [address] [id number] [place] [address]- 8254 Aug, [facility] [place] [facility] [address] [facility] [place] [id number] [place] [address]- [address] Jul, [facility] [place] [facility] [address] [id number] [place] [address]- 74[address] Jul, [facility] [address] [address]- [address] Jun, [facility] [place] [facility] [address] [id number] [place] [address]- 5[address] May, [facility] [place] [facility] [address] [place] [id number] [place] [address]- [address] Mar, [facility] [place] [facility] [address] [place] [id number] [place] [address]- [address] Feb, [facility] [place] [facility] [address] [id number], [place] [address]- [address] Feb, [facility] [place] [facility] [address] [id number], [place] [address]- [address] Feb, [facility] [place] [facility] [address] [id number], [place] [address]- 235[address] January, [facility] [place] [facility] [address] [facility] [place] [id number] [address]- [address] 30 Dec, 2012 [facility] [place] [facility] [address] [facility] [place] [id number], [place] [address]- [address] 15 Dec, 2012 [facility] [place] [facility] [address] [id number] [place] [address]- 4367 15 Dec, 2012 [facility] [address] [id number] [place] [address]- [address] 09 Dec, 2012 [facility] [place] [facility] [address] [id number] [place] [address]- 2546 02 Dec, 2012 [facility] [address] [id number] [place] [address]- 3196 Nov, [facility] [place] [facility] [address] [id number] [place] [address]- 6290 Oct, [facility] [place] [facility] [address] [id number] [place] [address]- 8776 Sep, [facility] [place] [facility] [address] [id number] [place] [address]- 8019 Sep, [facility] [address] [id number] [place] [address]- 8959 Sep, [facility] [address] [id number] [place] [address]- 5004 Sep, [facility] [address] [id number] [place] [address]- 1717 Aug, [facility] [address] [id number] [place] [address]- 0393 Aug, [facility] [address] [id number] [place] [address]- 8408 Aug, [facility] [place] [facility] [address] [id number] [place] [address]- 3823 Aug, [facility] [place] [facility] [address] [id number] [place] [address] 2546 Aug, [facility] [place] [facility] [address] [id number] [place] [address]- 2546 18 Aug, 2012 [facility] [place] [facility] [address] [id number] [place] [address]- 6970 18 Aug, 2012 [facility] [place] [facility] [address] [id number] [place] [address]- 4005 18 Aug, 2012 [facility] [place] [facility] [address] [id number] [place] [address]- 0996 Aug, [facility] [place] [facility] [address] [facility] [id number] [place] [address]- 5346 Aug, [facility] [place] [facility] [address] [id number] [place] [address]- 9729 Aug, [facility] [place] [facility] [address] [id number] [place] [address]- 7166 Aug, [facility] [place] [facility] [address] [id number] [place] [address]- 9646 Aug, [facility] [place] [facility] [address] [facility] [id number] [place] [address]- 1618 Aug, [facility] [place] [facility] [address] [id number], [place] [address]- 6870 Aug, [facility] [place] [facility] [address] [id number] [place] [address]- 8792 Aug, [facility] [place] [facility] [address] [facility] [id number], [place] [address]- 8635 Jul, [facility] [place] [facility] [address] [id number], [place] [address]- 1667 Jul, [facility] [place] [facility] [address] [id number] [address]- 4372 Jul, [facility] [place] [facility] [address] [id number] [address]- 4306 Jul, [facility] [place] [facility] [address] [facility] [id number][place] [address]- 2035 Jun, [facility] [place] [facility] [address] [facility] [id number], [place] [address]- 9997 30 May, 2012 [facility] [place] [facility] [address] [id number] [place] [address]- 2066 19 May, 2012 [facility] [place] [facility] [address] [id number] [place] [address] 2546 14 May, 2012 [facility] [place] [facility] [address] [id number] [place] [address] 2546 13 May, 2012 [facility] [place] [facility] [address] [id number] [place] [address] 2546 11 May, 2012 [facility] [place] [facility] [address] [id number] [place] [address] 2546 10 May, 2012 [facility] [place] [facility] [address] [id number] [place] [address]- 5286 08 May, 2012 [facility] [place] [facility] [address] [id number] [place] [address]- 1678 28 Apr, 2012 [facility] [place] [facility] [address] [id number] [place] [address]- 2416 Apr, [facility] [place] [facility] [address] [id number] [place] [address]- 2261 Apr, [facility] [place] [facility] [address] [id number] [place] [address]- 2606 Apr, [facility] [place] [facility] [address] [id number] [place] [address]- 8513 Mar, [facility] [place] [facility] [address] [id number] [place] [address] 2546 Mar, [facility] [place] [facility] [address] [id number] [place] [address]- 2549 Mar, [facility] [place] [facility] [address] [id number] [place] [address] 2546 Mar, [facility] [place] [facility] [address] [id number] [place] [address]- 2546 Mar, [facility] [place] [facility] [address] [id number] [place] [address]- 2544 Mar, [facility] [address] [facility] [place] [id number], [place] [address]- [address] Mar, [facility] [address] [facility] [id number], [place] [address]- [address] January, [facility] [address] [facility] [id number] [address]- [address] Dec, [facility] [address] [facility] [id number], [place] [address]- [address] Dec, IMMUNIZATIONS No Known Immunizations SOCIAL HISTORY Never Assessed REASON FOR VISIT EMR-[facility] PLAN OF CARE VITAL SIGNS MEDICATIONS Unknown [...]
--- OUTSIDE RECORDS SUMMARY | 2019-01-14 16:29 | XMS REPORT ---
Author Author Migration, Doctor Organization [facility] Address Unknown Phone Unavailable Care Team Providers Care Mill Supervisor Name Role Phone Migration, Doctor Unavailable Unavailable PROBLEMS Type Condition ICD9-CM Code YGF61-GS Code Onset Dates Condition Status SNOMED Code Problem Screening for malignant neoplasm of the cervix V76.2 Active 625600416 Problem Screening examination for venereal disease V74.5 Active 611529723 Problem Unspecified breast screening V76.10 Active 717697100 Problem Special screening examination, human papillomavirus [HPV] V73.81 Active 566180085 Problem Counseling on substance use and abuse V65.42 Active 843407628 Problem Multiple and unspecified open wound of upper limb, without mention of complication 884.0 Active 18725126 Problem Routine gynecological examination V72.31 Active 481395220633047 Problem Carpal tunnel syndrome 354.0 Active 01536431 Problem Acute sinusitis, unspecified 461.9 Active 25576090 Problem Pain in soft tissues of limb 729.5 Active 16552894 Problem Disturbance of skin sensation 782.0 Active 797805181 Problem Cellulitis and abscess of unspecified site 682.9 Active 606954911 Problem Pain in joint, shoulder region 719.41 Active 869756779 Problem Irregular menstrual cycle 626.4 Active 90310001 Problem Unspecified cellulitis and abscess of finger 681.00 Active 887544186 Problem Unspecified inflammatory disease of female pelvic organs and tissues 614.9 Active 059316730 Problem Unspecified vaginitis and vulvovaginitis 616.10 Active 337725845 Problem Obsessive-compulsive disorders 300.3 Active 257792597 Problem Generalized anxiety disorder 300.02 Active 86730670 Problem Major depressive disorder, recurrent episode, in partial or unspecified remission 296.35 Active 57696715 Problem Carpal tunnel syndrome, bilateral upper limbs G56.03 Active 05409070 Problem Dysuria 788.1 Active 54873155 Problem Moderate episode of recurrent major depressive disorder F33.1 Active 100908519 Problem Papanicolaou smear of cervix with low grade squamous intraepithelial lesion (LGSIL) 795.03 Active 754946057 Problem Shortness of breath 786.05 Active 819072406 Problem Major depressive disorder, recurrent episode, severe, without mention of psychotic behavior 296.33 Active 33460965 Problem Major depressive disorder, recurrent episode, moderate 296.32 Active 63519758 Problem Methicillin resistant Staphylococcus aureus 041.12 Active 067337088 Problem ASCUS with positive high 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.9 Active 296542522 ALLERGIES No Information ENCOUNTERS Encounter Location Date Diagnosis [place] [address] [address] Apr, [place] [address] [address] Apr, Other infective acute otitis externa of right ear H60.391 [place] [address] [address] Dec, Left shoulder pain, unspecified chronicity M25.512 [place] [address] [address] Mar, Carpal tunnel syndrome, bilateral upper limbs G56.03 and Moderate episode of recurrent major depressive disorder F33.1 [facility] [address] [id number] Mar, Dental examination Z01.20 [place] [address] [address] Mar, Pain in right hand M79.641 [place] [address] [address] Oct, [place] [address] [address] Aug, Pyelonephritis N12 [place] [address] [address] January, [place] [address] [address] January, [place] [address] [place] [address] January, ASCUS with positive high 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.9 and Leukorrhea 623.5 [facility] [place] [facility] [id number] [place] [address] Dec, [facility] [place] [facility] [address] [id number] [address] Dec, [facility] [place] [facility] [id number] [place] [address] Nov, [facility] [place] [facility] [address] [facility] [id number] [place] [address] Nov, [facility] [place] [facility] [address] [address] Nov, [facility] [place] [facility] [id number] [address] Nov, [facility] [place] [facility] [id number] [address] Nov, [facility] [place] [facility] [address] [id number] [address] Nov, [facility] [place] [facility] [address] [address] Oct, [facility] [place] [facility] [address] [address] Oct, [facility] [place] [facility] [address] [address] Oct, [facility] [place] [facility] [address] [id number] [address] Oct, [facility] [place] [facility] [address] [address] [address] Oct, [facility] [place] [facility] [address] [address] Oct, [facility] [place] [facility] [id number] [place] [address] Aug, [facility] [place] [facility] [address] [id number] [place] [address] Aug, [facility] [place] [facility] [address] [id number] [place] [address] Jun, [facility] [place] [facility] [address] [id number] [place] [address] Jun, [facility] [place] [facility] [address] [id number] [place] [address] Jun, [facility] [place] [facility] [address] [id number] [place] [address] Jun, [facility] [place] [facility] [address] [id number] [place] [address]- [address] Jun, [facility] [place] [facility] [address] [id number] [place] [address] Jun, [facility] [place] [facility] [address] [id number] [place] [address] May, [facility] [place] [facility] [address] [id number] [place] [address]- [address] May, [facility] [place] [facility] [address] [id number] [place] [address]- [address] Apr, [facility] [place] [facility] [address] [id number] [place] [address] Apr, [facility] [place] [facility] [address] [id number] [place] [address]- [address] Mar, [facility] [place] [facility] [address] [id number] [place] [address]- [address] Mar, [facility] [place] [facility] [address] [id number] [place] [address]- [address] Mar, [facility] [place] [facility] [address] [id number] [place] [address] Mar, [facility] [place] [facility] [address] [id number] [place] [address]- [address] Feb, [facility] [place] [facility] [address] [id number] [place] [address]- [address] Feb, [facility] [place] [facility] [address] [id number] [place] [address] January, [facility] [place] [facility] [address] [id number] [place] [address]- [address] January, [facility] [place] [facility] [address] [id number] [place] [address]- [address] January, [facility] [place] [facility] [address] [id number] [place] [address]- [address] January, [facility] [place] [facility] [address] [id number] [place] [address]- [address] January, [facility] [place] [facility] [address] [id number] [place] [address]- 1610 January, [facility] [place] [facility] [address] [id number] [place] [address]- 1635 Dec, [facility] [place] [facility] [address] [id number] [place] [address]- [address] Dec, [facility] [place] [facility] [address] [id number] [place] [address]- [address] Nov, [facility] [place] [facility] [address] [id number] [place] [address]- 1187 Nov, [facility] [place] [facility] [address] [id number] [place] [address]- 3547 Oct, [facility] [place] [facility] [address] [id number] [place] [address]- 99[address] Oct, [facility] [place] [facility] [address] [id number] [place] [address]- [address] Sep, [facility] [place] [facility] [address] [id number] [address]- [address] Sep, [facility] [address] [id number] [place] [address]- [address] Sep, [facility] [place] [facility] [address] [facility] [id number] [address]- [address] Sep, [facility] [address] [facility] [id number] [place] [address]- [address] Aug, [facility] [place] [facility] [address] [id number] [place] [address]- 9944 Aug, [facility] [place] [facility] [address] [facility] [id number] [place] [address]- [address] Jul, [facility] [place] [facility] [address] [id number] [place] [address]- 29[address] Jul, [facility] [address] [address]- [address] Jun, [facility] [place] [facility] [address] [id number] [place] [address]- [address] May, [facility] [place] [facility] [address] [place] [id number] [place] [address]- [address] Mar, [facility] [place] [facility] [address] [place] [id number] [place] [address]- [address] Feb, [facility] [place] [facility] [address] [id number], [place] [address]- [address] Feb, [facility] [place] [facility] [address] [id number][place] [address]- [address] Feb, [facility] [place] [facility] [address] [id number][place] [address]- [address] January, [facility] [place] [facility] [address] [facility] [id number][place] [address]- [address] 30 Dec, 2012 [facility] [place] [facility] [address] [facility] [id number], [place] [address]- [address] 15 Dec, 2012 [facility] [place] [facility] [address] [id number] [place] [address]- [address] 15 Dec, 2012 [facility] [address] [id number] [place] [address]- [address] 09 Dec, 2012 [facility] [place] [facility] [address] [id number] [place] [address]- [address] 02 Dec, 2012 [facility] [address] [id number] [place] [address]- 9566 Nov, [facility] [place] [facility] [address] [id number] [place] [address]- 9749 Oct, [facility] [place] [facility] [address] [id number] [place] [address]- 3426 Sep, [facility] [place] [facility] [address] [id number] [place] [address]- 5840 Sep, [facility] [address] [id number] [place] [address]- 6009 Sep, [facility] [address] [id number] [place] [address]- 8369 Sep, [facility] [address] [id number] [place] [address]- 7574 Aug, [facility] [address] [id number] [place] [address]- 0379 Aug, [facility] [address] [id number] [place] [address]- 5564 Aug, [facility] [place] [facility] [address] [id number] [place] [address]- 8651 Aug, [facility] [place] [facility] [address] [id number] [place] [address]46 Aug, [facility] [place] [facility] [address] [id number] [place] [address]- 2546 18 Aug, 2012 [facility] [place] [facility] [address] [id number] [place] [address]- 5935 18 Aug, 2012 [facility] [place] [facility] [address] [id number] [place] [address]- 8205 18 Aug, 2012 [facility] [place] [facility] [address] [id number] [place] [address]- 2376 Aug, [facility] [place] [facility] [address] [facility] [id number] [place] [address]- 4766 Aug, [facility] [place] [facility] [address] [id number] [place] [address]- 0862 Aug, [facility] [place] [facility] [address] [id number] [place] [address]- 3790 Aug, [facility] [place] [facility] [address] [id number] [place] [address]- 3675 Aug, [facility] [place] [facility] [address] [facility] [id number] [place] [address]- 2476 Aug, [facility] [place] [facility] [address] [id number] [address]- 3233 Aug, [facility] [place] [facility] [address] [id number] [place] [address]- 1709 Aug, [facility] [place] [facility] [address] [facility] [id number], [place] [address]- 2175 Jul, [facility] [place] [facility] [address] [id number], [place] [address]- 3563 Jul, [facility] [place] [facility] [address] [id number][place] [address]- 8274 Jul, [facility] [place] [facility] [address] [id number], [place] [address]- 7886 Jul, [facility] [place] [facility] [address] [facility] [id number], [place] [address]- 5295 Jun, [facility] [place] [facility] [address] [facility] [id number][place] [address]- 59[address] 30 May, 2012 [facility] [place] [facility] [address] [id number] [place] [address]- 1106 19 May, 2012 [facility] [place] [facility] [address] [id number] [place] [address] 2546 14 May, 2012 [facility] [place] [facility] [address] [id number] [place] [address] 2546 13 May, 2012 [facility] [place] [facility] [address] [id number] [place] [address] 2546 11 May, 2012 [facility] [place] [facility] [address] [id number] [place] [address] 2546 10 May, 2012 [facility] [place] [facility] [address] [id number] [place] [address]- 9756 08 May, 2012 [facility] [place] [facility] [address] [id number] [place] [address]- 9137 28 Apr, 2012 [facility] [place] [facility] [address] [id number] [place] [address]- 4046 Apr, [facility] [place] [facility] [address] [id number] [place] [address]- 7494 Apr, [facility] [place] [facility] [address] [id number] [place] [address]- 1007 Apr, [facility] [place] [facility] [address] [id number] [place] [address]- 9606 Mar, [facility] [place] [facility] [address] [id number] [place] [address] 2546 Mar, [facility] [place] [facility] [address] [id number] [place] [address]- 2549 Mar, [facility] [place] [facility] [address] [id number] [place] [address] 2546 Mar, [facility] [place] [facility] [address] [id number] [place] [address]- 2546 Mar, [facility] [place] [facility] [address] [id number] [place] [address]- 2540 Mar, [facility] [address] [facility] [id number] [place] [address]- 8[address] Mar, [facility] [address] [facility] [id number], [place] [address]- [address] January, [facility] [address] [facility] [id number], [place] [address]- 5573 Dec, [facility] [address] [facility] [id number], [place] [address]- [address]041 Dec, IMMUNIZATIONS No Known Immunizations SOCIAL HISTORY Never Assessed REASON FOR VISIT EMR-[facility] PLAN OF CARE VITAL SIGNS MEDICATIONS Medication Instructions Dosage Frequency Start Date End Date Duration Status Paxil 10 mg 1 tablet by Oral route 1 time per day Nov, Active trazodone 100 mg 2 Daily by Oral route 1 time per day take at bedtime Nov, Active Xanax 1 mg 1 tablet by Oral route 2 times per day Nov, Active Neurontin 400 mg 1 capsule by Oral route 4 times per day Aug, Active Nitrofurantoin Macrocrystal 100 mg 1 capsule by Oral route 2 times per day for 7 day(s) Oct, Active MethylPREDNISolone 4 mg by Oral route every day for 6 days as directed per dose pack Sep, Active Doxycycline Hyclate 100 mg 1 tablet by Oral route 2 times per day for 14 days Oct, Active Augmentin 875-125 mg 1 tablet by Oral route 2 times per day for 14 day(s) Feb, Active Flagyl 500 mg 1 tablet by Oral route 2 times per day for 7 days May Active RESULTS No Results PROCEDURES No Known procedures INSTRUCTIONS MEDICATIONS ADMINISTERED No Known Medications MEDICAL (GENERAL) HISTORY Type Description Date Medical History Spinal cord injury - cervical spine Medical History Hepatitis C Surgical History tubal ligation Surgical History Biopsy x 2 Hospitalization History Kidney infections x 2 Hospitalization History Childbirth
--- OUTSIDE RECORDS SUMMARY | 2019-01-14 16:29 | XMS REPORT ---
Author Author Migration, Doctor Organization [facility] Address Unknown Phone Unavailable Care Team Providers Care Carpenter/Labor Name Role Phone Migration, Doctor Unavailable Unavailable PROBLEMS Type Condition ICD9-CM Code NKQ70-QT Code Onset Dates Condition Status SNOMED Code Problem Screening for malignant neoplasm of the cervix V76.2 Active 877227627 Problem Screening examination for venereal disease V74.5 Active 139241153 Problem Unspecified breast screening V76.10 Active 657966448 Problem Special screening examination, human papillomavirus [HPV] V73.81 Active 785607627 Problem Counseling on substance use and abuse V65.42 Active 600056682 Problem Multiple and unspecified open wound of upper limb, without mention of complication 884.0 Active 70785281 Problem Routine gynecological examination V72.31 Active [id number] Problem Carpal tunnel syndrome 354.0 Active 21776849 Problem Acute sinusitis, unspecified 461.9 Active 90719337 Problem Pain in soft tissues of limb 729.5 Active 96697362 Problem Disturbance of skin sensation 782.0 Active 854074993 Problem Cellulitis and abscess of unspecified site 682.9 Active 081596737 Problem Pain in joint, shoulder region 719.41 Active 341248353 Problem Irregular menstrual cycle 626.4 Active 97585592 Problem Unspecified cellulitis and abscess of finger 681.00 Active 686069880 Problem Unspecified inflammatory disease of female pelvic organs and tissues 614.9 Active 409374386 Problem Unspecified vaginitis and vulvovaginitis 616.10 Active 379804011 Problem Obsessive-compulsive disorders 300.3 Active 549033118 Problem Generalized anxiety disorder 300.02 Active 51511766 Problem Major depressive disorder, recurrent episode, in partial or unspecified remission 296.35 Active 93490325 Problem Carpal tunnel syndrome, bilateral upper limbs G56.03 Active 73116783 Problem Dysuria 788.1 Active 42648856 Problem Moderate episode of recurrent major depressive disorder F33.1 Active 762181199 Problem Papanicolaou smear of cervix with low grade squamous intraepithelial lesion (LGSIL) 795.03 Active 279046788 Problem Shortness of breath 786.05 Active 496620716 Problem Major depressive disorder, recurrent episode, severe, without mention of psychotic behavior 296.33 Active 11120666 Problem Major depressive disorder, recurrent episode, moderate 296.32 Active 87136409 Problem Methicillin resistant Staphylococcus aureus 041.12 Active 272096885 Problem ASCUS with positive high 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.9 Active 325257052 ALLERGIES No Information ENCOUNTERS Encounter Location Date Diagnosis [place] [address] [address] Apr, [place] [address] [address] Apr, Other infective acute otitis externa of right ear H60.391 [place] [address] [address] Dec, Left shoulder pain, unspecified chronicity M25.512 [place] [address] [address] Mar, Carpal tunnel syndrome, bilateral upper limbs G56.03 and Moderate episode of recurrent major depressive disorder F33.1 [facility] [address] [id number] Mar, Dental examination Z01.20 [place] [address] [address] Mar, Pain in right hand M79.641 [place] [address] [address] Oct, [place] [address] [address] Aug, Pyelonephritis N12 [place] [address] [address] January, [place] [address] [address] January, [place] [address] [place] [address] January, ASCUS with positive high 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.9 and Leukorrhea 623.5 [facility] [place] [facility] [id number] [address] Dec, [facility] [place] [facility] [address] [id number] [address] Dec, [facility] [place] [facility] [id number] [place] [address] Nov, [facility] [place] [facility] [address] [facility] [id number] [place] [address] Nov, [facility] [place] [facility] [address] [address] Nov, [facility] [place] [facility] [address] [address] Nov, [facility] [place] [facility] [address] [address] Nov, [facility] [place] [facility] [address] [id number] [address] Nov, [facility] [place] [facility] [address] [address] Oct, [facility] [place] [facility] [address] [address] Oct, [facility] [place] [facility] [address], [place] [address] Oct, [facility] [place] [facility] [address] [id number] [address] Oct, [facility] [place] [facility] [address] [address] Oct, [facility] [place] [facility] [address] [address] Oct, [facility] [place] [facility] [id number] [address] Aug, [facility] [place] [facility] [address] [id number] [place] [address] Aug, [facility] [place] [facility] [address] [id number] [place] [address] Jun, [facility] [place] [facility] [address] [id number] [place] [address] Jun, [facility] [place] [facility] [address] [id number] [place] [address]- [address] Jun, [facility] [place] [facility] [address] [id number] [place] [address]- 94[address] Jun, [facility] [place] [facility] [address] [id number] [place] [address]- [address] Jun, [facility] [place] [facility] [address] [id number] [place] [address]- [address] Jun, [facility] [place] [facility] [address] [id number] [place] [address] 84[address] May, [facility] [place] [facility] [address] [id number] [place] [address]- [address] May, [facility] [place] [facility] [address] [id number] [place] [address]- [address] Apr, [facility] [place] [facility] [address] [id number] [place] [address]- 69[address] Apr, [facility] [place] [facility] [address] [id number] [place] [address]- [address] Mar, [facility] [place] [facility] [address] [id number] [place] [address]- [address] Mar, [facility] [place] [facility] [address] [id number] [place] [address]- [address] Mar, [facility] [place] [facility] [address] [id number] [place] [address] Mar, [facility] [place] [facility] [address] [id number] [place] [address]- [address] Feb, [facility] [place] [facility] [address] [id number] [place] [address]- [address] Feb, [facility] [place] [facility] [address] [id number] [place] [address]- [address] January, [facility] [place] [facility] [address] [id number] [place] [address] January, [facility] [place] [facility] [address] [id number] [place] [address]- [address] January, [facility] [place] [facility] [address] [id number] [place] [address]- [address] January, [facility] [place] [facility] [address] [id number] [place] [address]- 9[address] January, [facility] [place] [facility] [address] [id number] [place] [address]- [address] January, [facility] [place] [facility] [address] [id number] [place] [address]- 45[address] Dec, [facility] [place] [facility] [address] [id number] [place] [address]- 09[address] Dec, [facility] [place] [facility] [address] [id number] [place] [address]- [address] Nov, [facility] [place] [facility] [address] [id number] [place] [address]- 25[address] Nov, [facility] [place] [facility] [address] [id number] [place] [address]- 98[address] Oct, [facility] [place] [facility] [address] [id number] [place] [address]- 2567 Oct, [facility] [place] [facility] [address] [id number] [place] [address]- 6461 Sep, [facility] [place] [facility] [address] [id number], [place] [address]- [address] Sep, [facility] [address] [id number] [place] [address]- 4[address] Sep, [facility] [place] [facility] [address] [facility] [id number], [place] [address]- [address] Sep, [facility] [address] [facility] [id number] [place] [address]- 7[address] Aug, [facility] [place] [facility] [address] [id number] [place] [address]- 68[address] Aug, [facility] [place] [facility] [address] [facility] [id number] [place] [address]- 1428 Jul, [facility] [place] [facility] [address] [id number] [place] [address]- [address] Jul, [facility] [address], [place] [address]- [address] Jun, [facility] [place] [facility] [address] [id number] [place] [address]- 288[address] May, [facility] [place] [facility] [address] [place] [id number] [address]- [address] Mar, [facility] [place] [facility] [address] [place] [id number] [address]- [address] Feb, [facility] [place] [facility] [address] [id number], [place] [address]- [address] Feb, [facility] [place] [facility] [address] [id number], [place] [address]- [address] Feb, [facility] [place] [facility] [address] [id number], [place] [address]- [address] January, [facility] [place] [facility] [address] [facility] [id number], [place] [address]- [address] 30 Dec, 2012 [facility] [place] [facility] [address] [facility] [id number], [place] [address]- [address] 15 Dec, 2012 [facility] [place] [facility] [address] [id number] [place] [address]- [address] 15 Dec, 2012 [facility] [address] [id number] [place] [address]- 2854 09 Dec, 2012 [facility] [place] [facility] [address] [id number] [place] [address]- 2546 02 Dec, 2012 [facility] [address] [id number] [place] [address]- 8826 Nov, [facility] [place] [facility] [address] [id number] [place] [address]- 8260 Oct, [facility] [place] [facility] [address] [id number] [place] [address]- 5016 Sep, [facility] [place] [facility] [address] [id number] [place] [address]- 4427 Sep, [facility] [address] [id number] [place] [address]- 5658 Sep, [facility] [address] [id number] [place] [address]- 0094 Sep, [facility] [address] [id number] [place] [address]- 5090 Aug, [facility] [address] [id number] [place] [address]- 7184 Aug, [facility] [address] [id number] [place] [address]- 7669 Aug, [facility] [place] [facility] [address] [id number] [place] [address]- 0643 Aug, [facility] [place] [facility] [address] [id number] [place] [address] 2546 Aug, [facility] [place] [facility] [address] [id number] [place] [address]- 2546 18 Aug, 2012 [facility] [place] [facility] [address] [id number] [place] [address]- 1550 18 Aug, 2012 [facility] [place] [facility] [address] [id number] [place] [address]- 6636 18 Aug, 2012 [facility] [place] [facility] [address] [id number] [place] [address]- 0506 Aug, [facility] [place] [facility] [address] [facility] [id number] [place] Aug, [facility] [place] [facility] [address] [id number] [place] [address]- 6596 Aug, [facility] [place] [facility] [address] [id number] [place] [address]- 7090 Aug, [facility] [place] [facility] [address] [id number] [place] [address]- 8452 Aug, [facility] [place] [facility] [address] [facility] [id number] [place] [address]- 3107 Aug, [facility] [place] [facility] [address] [id number], [place] [address]- 0130 Aug, [facility] [place] [facility] [address] [id number] [place] [address]- 2579 Aug, [facility] [place] [facility] [address] [facility] [id number], [place] [address]- 409[address] Jul, [facility] [place] [facility] [address] [id number], [place] [address]- 0131 Jul, [facility] [place] [facility] [address] [id number], [place] [address]- 6671 Jul, [facility] [place] [facility] [address] [id number], [place] [address]- 4346 Jul, [facility] [place] [facility] [address] [facility] [id number], [place] [address]- 3687 Jun, [facility] [place] [facility] [address] [facility] [id number], [place] [address]- 1612 30 May, 2012 [facility] [place] [facility] [address] [id number] [place] [address]- 6526 19 May, 2012 [facility] [place] [facility] [address] [id number] [place] [address] 2546 14 May, 2012 [facility] [place] [facility] [address] [id number] [place] [address] 2546 13 May, 2012 [facility] [place] [facility] [address] [id number] [place] [address] 2546 11 May, 2012 [facility] [place] [facility] [address] [id number] [place] [address] 2546 10 May, 2012 [facility] [place] [facility] [address] [id number] [place] [address]- 9536 08 May, 2012 [facility] [place] [facility] [address] [id number] [place] [address]- 9909 28 Apr, 2012 [facility] [place] [facility] [address] [id number] [place] [address]- 9226 Apr, [facility] [place] [facility] [address] [id number] [place] [address]- 7595 Apr, [facility] [place] [facility] [address] [id number] [place] [address]- 2321 Apr, [facility] [place] [facility] [address] [id number] [place] [address]- 3166 Mar, [facility] [place] [facility] [address] [id number] [place] [address] 2546 Mar, [facility] [place] [facility] [address] [id number] [place] [address]- 2541 Mar, [facility] [place] [facility] [address] [id number] [place] [address] 2546 Mar, [facility] [place] [facility] [address] [id number] [place] [address]- 2546 Mar, [facility] [place] [facility] [address] [id number] [place] [address]- 2541 Mar, [facility] [address] [facility] [id number], [place] [address]- 9386 Mar, [facility] [address] [facility] [id number], [place] [address]- [address] January, [facility] [address] [facility] [id number], [place] [address]- [address] Dec, [facility] [address] [facility] [id number], [place] [address]- 1486 Dec, IMMUNIZATIONS No Known Immunizations SOCIAL HISTORY Never Assessed REASON FOR VISIT EMR-[facility] [place] PLAN OF CARE VITAL SIGNS MEDICATIONS Unknown [...]
--- OUTSIDE RECORDS SUMMARY | 2019-01-14 16:29 | XMS REPORT ---
Author Author Migration, Doctor Organization [facility] Address Unknown Phone Unavailable Care Team Providers Care [employer] Operator Name Role Phone Migration, Doctor Unavailable Unavailable PROBLEMS Type Condition ICD9-CM Code UNV40-IP Code Onset Dates Condition Status SNOMED Code Problem Screening for malignant neoplasm of the cervix V76.2 Active 559601917 Problem Screening examination for venereal disease V74.5 Active 304363865 Problem Unspecified breast screening V76.10 Active 484434638 Problem Special screening examination, human papillomavirus [HPV] V73.81 Active 176793570 Problem Counseling on substance use and abuse V65.42 Active 558221497 Problem Multiple and unspecified open wound of upper limb, without mention of complication 884.0 Active 07853122 Problem Routine gynecological examination V72.31 Active [id number] Problem Carpal tunnel syndrome 354.0 Active 11096312 Problem Acute sinusitis, unspecified 461.9 Active 39711315 Problem Pain in soft tissues of limb 729.5 Active 05726873 Problem Disturbance of skin sensation 782.0 Active 807454094 Problem Cellulitis and abscess of unspecified site 682.9 Active 922518807 Problem Pain in joint, shoulder region 719.41 Active 901890934 Problem Irregular menstrual cycle 626.4 Active 55074136 Problem Unspecified cellulitis and abscess of finger 681.00 Active 137226493 Problem Unspecified inflammatory disease of female pelvic organs and tissues 614.9 Active 393807838 Problem Unspecified vaginitis and vulvovaginitis 616.10 Active 410083160 Problem Obsessive-compulsive disorders 300.3 Active 659620553 Problem Generalized anxiety disorder 300.02 Active 34925095 Problem Major depressive disorder, recurrent episode, in partial or unspecified remission 296.35 Active 44419755 Problem Carpal tunnel syndrome, bilateral upper limbs G56.03 Active 22690644 Problem Dysuria 788.1 Active 13412707 Problem Moderate episode of recurrent major depressive disorder F33.1 Active 820426964 Problem Papanicolaou smear of cervix with low grade squamous intraepithelial lesion (LGSIL) 795.03 Active 119402481 Problem Shortness of breath 786.05 Active 883910283 Problem Major depressive disorder, recurrent episode, severe, without mention of psychotic behavior 296.33 Active 40982715 Problem Major depressive disorder, recurrent episode, moderate 296.32 Active 67970615 Problem Methicillin resistant Staphylococcus aureus 041.12 Active 534559824 Problem ASCUS with positive high 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.9 Active 340933950 ALLERGIES No Information ENCOUNTERS Encounter Location Date Diagnosis [place] [address] [address] Apr, [place] [address] [address] Apr, Other infective acute otitis externa of right ear H60.391 [place] [address] [address] Dec, Left shoulder pain, unspecified chronicity M25.512 [place] [address] [address] Mar, Carpal tunnel syndrome, bilateral upper limbs G56.03 and Moderate episode of recurrent major depressive disorder F33.1 [facility] [address] [id number] Mar, Dental examination Z01.20 [place] [address] [address] Mar, Pain in right hand M79.641 [place] [address] [address] Oct, [place] [address] [address] Aug, Pyelonephritis N12 [place] [address] [address] January, [place] [address] [address] January, [place] [address] [place] [address] January, ASCUS with positive high 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.9 and Leukorrhea 623.5 [facility] [place] [facility] [id number] [place] [address] Dec, [facility] [place] [facility] [address] [id number] [address] Dec, [facility] [place] [facility] [id number] [place] [address] Nov, [facility] [place] [facility] [address] [facility] [id number] [place] [address] Nov, [facility] [place] [facility] [address] [address] Nov, [facility] [place] [facility] [address] [address] Nov, [facility] [place] [facility] [address] [address] Nov, [facility] [place] [facility] [address] [id number] [address] Nov, [facility] [place] [facility] [address] [address] Oct, [facility] [place] [facility] [address] [address] Oct, [facility] [place] [facility] [address] [address] Oct, [facility] [place] [facility] [address] [id number] [address] Oct, [facility] [place] [facility] [address] [address] Oct, [facility] [place] [facility] [address] [address] Oct, [facility] [place] [facility] [id number] [place] [address] Aug, [facility] [place] [facility] [address] [id number] [place] [address] Aug, [facility] [place] [facility] [address] [id number] [place] [address] Jun, [facility] [place] [facility] [address] [id number] [place] [address] Jun, [facility] [place] [facility] [address] [id number] [place] [address] Jun, [facility] [place] [facility] [address] [id number] [place] [address]- [address] Jun, [facility] [place] [facility] [address] [id number] [place] [address]- [address] Jun, [facility] [place] [facility] [address] [id number] [place] [address]- [address] Jun, [facility] [place] [facility] [address] [id number] [place] [address]- 5[address] May, [facility] [place] [facility] [address] [id number] [place] [address] May, [facility] [place] [facility] [address] [id number] [place] [address]- [address] Apr, [facility] [place] [facility] [address] [id number] [place] [address] Apr, [facility] [place] [facility] [address] [id number] [place] [address]- [address] Mar, [facility] [place] [facility] [address] [id number] [place] [address]- [address] Mar, [facility] [place] [facility] [address] [id number] [place] [address] 53[address] Mar, [facility] [place] [facility] [address] [id number] [place] [address]- [address] Mar, [facility] [place] [facility] [address] [id number] [place] [address]- [address] Feb, [facility] [place] [facility] [address] [id number] [place] [address]- [address] Feb, [facility] [place] [facility] [address] [id number] [place] [address]- [address]97 January, [facility] [place] [facility] [address] [id number] [place] [address]- 5[address] January, [facility] [place] [facility] [address] [id number] [place] [address]- [address]60 January, [facility] [place] [facility] [address] [id number] [place] [address] January, [facility] [place] [facility] [address] [id number] [place] [address]- [address] January, [facility] [place] [facility] [address] [id number] [place] [address]- [address] January, [facility] [place] [facility] [address] [id number] [place] [address]- [address] Dec, [facility] [place] [facility] [address] [id number] [place] [address]- [address] Dec, [facility] [place] [facility] [address] [id number] [place] [address]- 55[address] Nov, [facility] [place] [facility] [address] [id number] [place] [address]- [address]237 Nov, [facility] [place] [facility] [address] [id number] [place] [address]- 4808 Oct, [facility] [place] [facility] [address] [id number] [place] [address]- 1873 Oct, [facility] [place] [facility] [address] [id number] [place] [address]- [address] Sep, [facility] [place] [facility] [address] [id number], [place] [address] Sep, [facility] [address] [id number] [place] [address]- 85[address] Sep, [facility] [place] [facility] [address] [facility] [id number], [place] [address]- 46[address] Sep, [facility] [address] [facility] [id number] [place] [address]- 1073 Aug, [facility] [place] [facility] [address] [id number] [place] [address]- 2459 Aug, [facility] [place] [facility] [address] [facility] [id number] [place] [address]- 9316 Jul, [facility] [place] [facility] [address] [id number] [place] [address]- 1478 Jul, [facility] [address], [place] [address]- [address] Jun, [facility] [place] [facility] [address] [id number] [place] [address]- 4[address] May, [facility] [place] [facility] [address] [place] [id number] [place] [address]- [address] Mar, [facility] [place] [facility] [address] [place] [id number] [place] [address]- 67[address] Feb, [facility] [place] [facility] [address] [id number], [place] [address]- [address] Feb, [facility] [place] [facility] [address] [id number], [place] [address]- 84[address] Feb, [facility] [place] [facility] [address] [id number], [place] [address]- 6[address] January, [facility] [place] [facility] [address] [facility] [id number], [place] [address]- [address] 30 Dec, 2012 [facility] [place] [facility] [address] [facility] [id number], [place] [address]- [address] 15 Dec, 2012 [facility] [place] [facility] [address] [id number] [place] [address]- 4099 15 Dec, 2012 [facility] [address] [id number] [place] [address]- 4078 09 Dec, 2012 [facility] [place] [facility] [address] [id number] [place] [address]- 2546 02 Dec, 2012 [facility] [address] [id number] [place] [address]- 6166 Nov, [facility] [place] [facility] [address] [id number] [place] [address]- 3861 Oct, [facility] [place] [facility] [address] [id number] [place] [address]- 7[address] Sep, [facility] [place] [facility] [address] [id number] [place] [address]- 8038 Sep, [facility] [address] [id number] [place] [address]- 0762 Sep, [facility] [address] [id number] [place] [address]- 6656 Sep, [facility] [address] [id number] [place] [address]- 3156 Aug, [facility] [address] [id number] [place] [address]- 9363 Aug, [facility] [address] [id number] [place] [address]- 1529 Aug, [facility] [place] [facility] [address] [id number] [place] [address]- 7598 Aug, [facility] [place] [facility] [address] [id number] [place] [address] 2546 Aug, [facility] [place] [facility] [address] [id number] [place] [address]- 2546 18 Aug, 2012 [facility] [place] [facility] [address] [id number] [place] [address]- 2944 18 Aug, 2012 [facility] [place] [facility] [address] [id number] [place] [address]- 1350 18 Aug, 2012 [facility] [place] [facility] [address] [id number] [place] [address]- 5196 Aug, [facility] [place] [facility] [address] [facility] [id number] [place] [address]- 8096 Aug, [facility] [place] [facility] [address] [id number] [place] [address]- 4330 Aug, [facility] [place] [facility] [address] [id number] [place] [address]- 5499 Aug, [facility] [place] [facility] [address] [id number] [place] [address]- 7421 Aug, [facility] [place] [facility] [address] [facility] [id number] [place] [address]- 7202 Aug, [facility] [place] [facility] [address] [id number], [place] [address]- 0162 Aug, [facility] [place] [facility] [address] [id number] [place] [address]- 5297 Aug, [facility] [place] [facility] [address] [facility] [id number], [place] [address]- 4118 Jul, [facility] [place] [facility] [address] [id number], [place] [address]- 3444 Jul, [facility] [place] [facility] [address] [id number], [place] [address]- 230[address] Jul, [facility] [place] [facility] [address] [id number], [place] [address]- 2756 Jul, [facility] [place] [facility] [address] [facility] [id number], [place] [address]- 1538 Jun, [facility] [place] [facility] [address] [facility] [id number], [place] [address]- 0199 30 May, 2012 [facility] [place] [facility] [address] [id number] [place] [address]- 0956 19 May, 2012 [facility] [place] [facility] [address] [id number] [place] [address] 2546 14 May, 2012 [facility] [place] [facility] [address] [id number] [place] [address] 2546 13 May, 2012 [facility] [place] [facility] [address] [id number] [place] [address] 2546 11 May, 2012 [facility] [place] [facility] [address] [id number] [place] [address] 2546 10 May, 2012 [facility] [place] [facility] [address] [id number] [place] [address]- 8486 08 May, 2012 [facility] [place] [facility] [address] [id number] [place] [address]- 6234 28 Apr, 2012 [facility] [place] [facility] [address] [id number] [place] [address]- 6156 Apr, [facility] [place] [facility] [address] [id number] [place] [address]- 3093 Apr, [facility] [place] [facility] [address] [id number] [place] [address]- 3542 Apr, [facility] [place] [facility] [address] [id number] [place] [address]- 6302 Mar, [facility] [place] [facility] [address] [id number] [place] [address] 2546 Mar, [facility] [place] [facility] [address] [id number] [place] [address]- 2544 Mar, [facility] [place] [facility] [address] [id number] [place] [address] 2546 Mar, [facility] [place] [facility] [address] [id number] [place] [address]- 2546 Mar, [facility] [place] [facility] [address] [id number] [place] [address]- 2540 Mar, [facility] [address] [facility] [id number], [place] [address]- 2506 Mar, [facility] [address] [facility] [id number], [place] [address]- 2546 January, [facility] [address] [facility] [id number], [place] [address]- 4[address] Dec, [facility] [address] [facility] [id number], [place] [address]- 7016 Dec, IMMUNIZATIONS No Known Immunizations SOCIAL HISTORY Never Assessed REASON FOR VISIT EMR-[facility] PLAN OF CARE VITAL SIGNS MEDICATIONS Unknown Medications RESULTS Name Result Date Reference Range GYNECOLOGIC ADDENDUM REPORT 2012-03-28 GYNECOLOGIC ADDENDUM REPORT FOOTNOTE PAP SMEAR 2012-03-28 LAB ENGINEER CYTOLOGY REPORT PAP RESULT ASCUS, HPV POSITIVE PROCEDURES No Known procedures INSTRUCTIONS MEDICATIONS ADMINISTERED No Known Medications MEDICAL (GENERAL) HISTORY Type Description Date Medical History Spinal cord injury - cervical spine Medical History Hepatitis C Surgical History tubal ligation Surgical History Biopsy x 2 Hospitalization History Kidney infections x 2 Hospitalization History Childbirth
--- OUTSIDE RECORDS SUMMARY | 2019-01-14 16:30 | XMS REPORT ---
Author Author Migration, Doctor Organization [facility] Address Unknown Phone Unavailable Care Team Providers Care Clinical Project Manager Name Role Phone Migration, Doctor Unavailable Unavailable PROBLEMS Type Condition ICD9-CM Code OIC61-ER Code Onset Dates Condition Status SNOMED Code Problem Screening for malignant neoplasm of the cervix V76.2 Active 964553040 Problem Screening examination for venereal disease V74.5 Active 986457370 Problem Unspecified breast screening V76.10 Active 481188605 Problem Special screening examination, human papillomavirus [HPV] V73.81 Active 822017402 Problem Counseling on substance use and abuse V65.42 Active 251032898 Problem Multiple and unspecified open wound of upper limb, without mention of complication 884.0 Active 90101825 Problem Routine gynecological examination V72.31 Active [id number] Problem Carpal tunnel syndrome 354.0 Active 30770119 Problem Acute sinusitis, unspecified 461.9 Active 62485201 Problem Pain in soft tissues of limb 729.5 Active 25269627 Problem Disturbance of skin sensation 782.0 Active 622426582 Problem Cellulitis and abscess of unspecified site 682.9 Active 550480851 Problem Pain in joint, shoulder region 719.41 Active 692906818 Problem Irregular menstrual cycle 626.4 Active 19904169 Problem Unspecified cellulitis and abscess of finger 681.00 Active 937936930 Problem Unspecified inflammatory disease of female pelvic organs and tissues 614.9 Active 267553047 Problem Unspecified vaginitis and vulvovaginitis 616.10 Active 044636157 Problem Obsessive-compulsive disorders 300.3 Active 626042977 Problem Generalized anxiety disorder 300.02 Active 08000748 Problem Major depressive disorder, recurrent episode, in partial or unspecified remission 296.35 Active 69788003 Problem Carpal tunnel syndrome, bilateral upper limbs G56.03 Active 43706951 Problem Dysuria 788.1 Active 79456519 Problem Moderate episode of recurrent major depressive disorder F33.1 Active 076866555 Problem Papanicolaou smear of cervix with low grade squamous intraepithelial lesion (LGSIL) 795.03 Active 223912031 Problem Shortness of breath 786.05 Active 982112671 Problem Major depressive disorder, recurrent episode, severe, without mention of psychotic behavior 296.33 Active 88436057 Problem Major depressive disorder, recurrent episode, moderate 296.32 Active 68641217 Problem Methicillin resistant Staphylococcus aureus 041.12 Active 732121397 Problem ASCUS with positive high 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.9 Active 236578644 ALLERGIES No Information ENCOUNTERS Encounter Location Date Diagnosis [place] [address] [address] Apr, [place] [address] [address] Apr, Other infective acute otitis externa of right ear H60.391 [place] [address] [address] Dec, Left shoulder pain, unspecified chronicity M25.512 [place] [address] [address] Mar, Carpal tunnel syndrome, bilateral upper limbs G56.03 and Moderate episode of recurrent major depressive disorder F33.1 [facility] [address] [id number] Mar, Dental examination Z01.20 [place] [address] [address] Mar, Pain in right hand M79.641 [place] [address] [address] Oct, [place] [address] [address] Aug, Pyelonephritis N12 [place] [address] [address] January, [place] [address] [address] January, [place] [address] [place] [address] January, ASCUS with positive high 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.9 and Leukorrhea 623.5 [facility] [place] [facility] [id number] [place] [address] Dec, [facility] [place] [facility] [address] [id number] [address] Dec, [facility] [place] [facility] [id number] [place] [address] Nov, [facility] [place] [facility] [address] [facility] [id number] [place] [address] Nov, [facility] [place] [facility] [address] [address] Nov, [facility] [place] [facility] [address], [place] [address] Nov, [facility] [place] [facility] [address], [place] [address] Nov, [facility] [place] [facility] [address] [id number] [address] Nov, [facility] [place] [facility] [address] [address] Oct, [facility] [place] [facility] [address] [address] Oct, [facility] [place] [facility] [address], [place] [address] Oct, [facility] [place] [facility] [address] [id number] [address] Oct, [facility] [place] [facility] [address] [address] Oct, [facility] [place] [facility] [id number], [place] [address] Oct, [facility] [place] [facility] [id number] [place] [address] Aug, [facility] [place] [facility] [address] [id number] [place] [address]- [address] Aug, [facility] [place] [facility] [address] [id number] [place] [address]- [address] Jun, [facility] [place] [facility] [address] [id number] [place] [address] Jun, [facility] [place] [facility] [address] [id number] [place] [address]- [address] Jun, [facility] [place] [facility] [address] [id number] [place] [address]- [address] Jun, [facility] [place] [facility] [address] [id number] [place] [address]- [address] Jun, [facility] [place] [facility] [address] [id number] [place] [address]- [address] Jun, [facility] [place] [facility] [address] [id number] [place] [address]- 9[address] May, [facility] [place] [facility] [address] [id number] [place] [address]- [address] May, [facility] [place] [facility] [address] [id number] [place] [address]- 277[address] Apr, [facility] [place] [facility] [address] [id number] [place] [address]- 244[address] Apr, [facility] [place] [facility] [address] [id number] [place] [address]- [address] Mar, [facility] [place] [facility] [address] [id number] [place] [address]- 270[address] Mar, [facility] [place] [facility] [address] [id number] [place] [address]- 4175 Mar, [facility] [place] [facility] [address] [id number] [place] [address]- 69[address] Mar, [facility] [place] [facility] [address] [id number] [place] [address]- 2428 Feb, [facility] [place] [facility] [address] [id number] [place] [address]- [address] Feb, [facility] [place] [facility] [address] [id number] [place] [address]- 5666 January, [facility] [place] [facility] [address] [id number] [place] [address]- 7948 January, [facility] [place] [facility] [address] [id number] [place] [address]- 6797 January, [facility] [place] [facility] [address] [id number] [place] [address]- 8246 January, [facility] [place] [facility] [address] [id number] [place] [address]- 8[address] January, [facility] [place] [facility] [address] [id number] [place] [address]- 4691 January, [facility] [place] [facility] [address] [id number] [place] [address]- 5453 Dec, [facility] [place] [facility] [address] [id number] [place] [address]- 2555 Dec, [facility] [place] [facility] [address] [id number] [place] [address]- 2290 Nov, [facility] [place] [facility] [address] [id number] [place] [address]- 3785 Nov, [facility] [place] [facility] [address] [id number] [place] [address]- 9494 Oct, [facility] [place] [facility] [address] [id number] [place] [address]- 4690 Oct, [facility] [place] [facility] [address] [id number] [place] [address]- 1485 Sep, [facility] [place] [facility] [address] [id number], [place] [address]- [address] Sep, [facility] [address] [id number] [place] [address]- 0437 Sep, [facility] [place] [facility] [address] [facility] [id number], [place] [address]- [address]95 Sep, [facility] [address] [facility] [id number] [place] [address]- 7387 Aug, [facility] [place] [facility] [address] [id number] [place] [address]- 5749 Aug, [facility] [place] [facility] [address] [facility] [id number] [place] [address]- 9[address] Jul, [facility] [place] [facility] [address] [id number] [place] [address]- 46[address] Jul, [facility] [address], [place] [address]- [address] Jun, [facility] [place] [facility] [address] [id number] [place] [address]- 0725 May, [facility] [place] [facility] [address] [place] [id number] [place] [address]- [address] Mar, [facility] [place] [facility] [address] [place] [id number] [place] [address]- 8607 Feb, [facility] [place] [facility] [address] [id number], [place] [address]- 62[address] Feb, [facility] [place] [facility] [address] [id number], [place] [address]- 44[address] Feb, [facility] [place] [facility] [address] [id number], [place] [address]- 9048 January, [facility] [place] [facility] [address] [facility] [id number], [place] [address]- [address] 30 Dec, 2012 [facility] [place] [facility] [address] [facility] [id number], [place] [address]- [address] 15 Dec, 2012 [facility] [place] [facility] [address] [id number] [place] [address]- 1379 15 Dec, 2012 [facility] [address] [id number] [place] [address]- 3014 09 Dec, 2012 [facility] [place] [facility] [address] [id number] [place] [address]- 2546 02 Dec, 2012 [facility] [address] [id number] [place] [address]- 1886 Nov, [facility] [place] [facility] [address] [id number] [place] [address]- 5465 Oct, [facility] [place] [facility] [address] [id number] [place] [address]- 4676 Sep, [facility] [place] [facility] [address] [id number] [place] [address]- 9546 Sep, [facility] [address] [id number] [place] [address]- 9345 Sep, [facility] [address] [id number] [place] [address]- 1505 Sep, [facility] [address] [id number] [place] [address]- 5730 Aug, [facility] [address] [id number] [place] [address]- 1987 Aug, [facility] [address] [id number] [place] [address]- 7376 Aug, [facility] [place] [facility] [address] [id number] [place] [address]- 7123 Aug, [facility] [place] [facility] [address] [id number] [place] [address] 2546 Aug, [facility] [place] [facility] [address] [id number] [place] [address]- 2546 18 Aug, 2012 [facility] [place] [facility] [address] [id number] [place] [address]- 7930 18 Aug, 2012 [facility] [place] [facility] [address] [id number] [place] [address]- 6338 18 Aug, 2012 [facility] [place] [facility] [address] [id number] [place] [address]- 4596 Aug, [facility] [place] [facility] [address] [facility] [id number] [place] [address]- 3096 Aug, [facility] [place] [facility] [address] [id number] [place] [address]- 5594 Aug, [facility] [place] [facility] [address] [id number] [place] [address]- 2151 Aug, [facility] [place] [facility] [address] [id number] [place] [address]- 5663 Aug, [facility] [place] [facility] [address] [facility] [id number] [place] [address]- 4795 Aug, [facility] [place] [facility] [address] [id number], [place] [address]- 5928 Aug, [facility] [place] [facility] [address] [id number] [place] [address]- 9836 Aug, [facility] [place] [facility] [address] [facility] [id number], [place] [address]- 9339 Jul, [facility] [place] [facility] [address] [id number], [place] [address]- 6123 Jul, [facility] [place] [facility] [address] [id number], [place] [address]- 0713 Jul, [facility] [place] [facility] [address] [id number], [place] [address]- 6006 Jul, [facility] [place] [facility] [address] [facility] [id number], [place] [address]- 0799 Jun, [facility] [place] [facility] [address] [facility] [id number], [place] [address]- [address] 30 May, 2012 [facility] [place] [facility] [address] [id number] [place] [address]- 0286 19 May, 2012 [facility] [place] [facility] [address] [id number] [place] [address] 2546 14 May, 2012 [facility] [place] [facility] [address] [id number] [place] [address] 2546 13 May, 2012 [facility] [place] [facility] [address] [id number] [place] [address] 2546 11 May, 2012 [facility] [place] [facility] [address] [id number] [place] [address] 2546 10 May, 2012 [facility] [place] [facility] [address] [id number] [place] [address]- 4456 08 May, 2012 [facility] [place] [facility] [address] [id number] [place] [address]- 0738 28 Apr, 2012 [facility] [place] [facility] [address] [id number] [place] [address]- 5656 Apr, [facility] [place] [facility] [address] [id number] [place] [address]- 2539 Apr, [facility] [place] [facility] [address] [id number] [place] [address]- 9042 Apr, [facility] [place] [facility] [address] [id number] [place] [address]- 2093 Mar, [facility] [place] [facility] [address] [id number] [place] [address] 2546 Mar, [facility] [place] [facility] [address] [id number] [place] [address]- 2541 Mar, [facility] [place] [facility] [address] [id number] [place] [address] 2546 Mar, [facility] [place] [facility] [address] [id number] [place] [address]- 2546 Mar, [facility] [place] [facility] [address] [id number] [place] [address]- 2542 Mar, [facility] [address] [facility] [id number], [place] [address]- 5006 Mar, [facility] [address] [facility] [id number], [place] [address]- 9866 January, [facility] [address] [facility] [id number], [place] [address]- 6106 Dec, [facility] [address] [facility] [id number], [place] [address] Dec, IMMUNIZATIONS No Known Immunizations SOCIAL HISTORY Never Assessed REASON FOR VISIT EMR-[facility] PLAN OF CARE VITAL SIGNS MEDICATIONS Unknown [...]
--- OUTSIDE RECORDS SUMMARY | 2019-01-14 16:30 | XMS REPORT ---
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 Role Phone Migration, Doctor Unavailable Unavailable PROBLEMS Type Condition ICD9-CM Code EDN94-PU Code Onset Dates Condition Status SNOMED Code Problem Screening for malignant neoplasm of the cervix V76.2 Active 040437637 Problem Screening examination for venereal disease V74.5 Active 541730212 Problem Unspecified breast screening V76.10 Active 050830503 Problem Special screening examination, human papillomavirus [HPV] V73.81 Active 636506150 Problem Counseling on substance use and abuse V65.42 Active 790642138 Problem Multiple and unspecified open wound of upper limb, without mention of complication 884.0 Active 63628715 Problem Routine gynecological examination V72.31 Active [id number] Problem Carpal tunnel syndrome 354.0 Active 78240746 Problem Acute sinusitis, unspecified 461.9 Active 60151689 Problem Pain in soft tissues of limb 729.5 Active 12030280 Problem Disturbance of skin sensation 782.0 Active 458528770 Problem Cellulitis and abscess of unspecified site 682.9 Active 653866983 Problem Pain in joint, shoulder region 719.41 Active 202260642 Problem Irregular menstrual cycle 626.4 Active 33112629 Problem Unspecified cellulitis and abscess of finger 681.00 Active 524133405 Problem Unspecified inflammatory disease of female pelvic organs and tissues 614.9 Active 890603156 Problem Unspecified vaginitis and vulvovaginitis 616.10 Active 363874852 Problem Obsessive-compulsive disorders 300.3 Active 122961100 Problem Generalized anxiety disorder 300.02 Active 40451291 Problem Major depressive disorder, recurrent episode, in partial or unspecified remission 296.35 Active 35426909 Problem Carpal tunnel syndrome, bilateral upper limbs G56.03 Active 04600205 Problem Dysuria 788.1 Active 30827659 Problem Moderate episode of recurrent major depressive disorder F33.1 Active 815880772 Problem Papanicolaou smear of cervix with low grade squamous intraepithelial lesion (LGSIL) 795.03 Active 051378782 Problem Shortness of breath 786.05 Active 573576357 Problem Major depressive disorder, recurrent episode, severe, without mention of psychotic behavior 296.33 Active 08904154 Problem Major depressive disorder, recurrent episode, moderate 296.32 Active 00924507 Problem Methicillin resistant Staphylococcus aureus 041.12 Active 859083200 Problem ASCUS with positive high 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.9 Active 832833961 ALLERGIES No Information ENCOUNTERS Encounter Location Date Diagnosis [place] [address] [address] Apr, [place] [address] [address] Apr, Other infective acute otitis externa of right ear H60.391 [place] [address] [address] Dec, Left shoulder pain, unspecified chronicity M25.512 [place] [address] [address] Mar, Carpal tunnel syndrome, bilateral upper limbs G56.03 and Moderate episode of recurrent major depressive disorder F33.1 [facility] [address] [id number] Mar, Dental examination Z01.20 [place] [address] [address] Mar, Pain in right hand M79.641 [place] [address] [address] Oct, [place] [address] [address] Aug, Pyelonephritis N12 [place] [address] [address] January, [place] [address] [address] January, [place] [address] [place] [address] January, ASCUS with positive high 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.9 and Leukorrhea 623.5 [facility] [place] [facility] [id number] [place] [address] Dec, [facility] [place] [facility] [address] [id number] [address] Dec, [facility] [place] [facility] [id number] [place] [address] Nov, [facility] [place] [facility] [address] [facility] [id number] [place] [address] Nov, [facility] [place] [facility] [address] [address] Nov, [facility] [place] [facility] [address] [address] Nov, [facility] [place] [facility] [address] [address] Nov, [facility] [place] [facility] [address] [id number] [address] Nov, [facility] [place] [facility] [address] [address] Oct, [facility] [place] [facility] [address], [place] [address] Oct, [facility] [place] [facility] [address] [address] Oct, [facility] [place] [facility] [address] [id number] [address] Oct, [facility] [place] [facility] [address] [address] Oct, [facility] [place] [facility] [address] [address] Oct, [facility] [place] [facility] [address] [place] [address] Aug, [facility] [place] [facility] [address] [id number] [place] [address] Aug, [facility] [place] [facility] [address] [id number] [place] [address] Jun, [facility] [place] [facility] [address] [id number] [place] [address] Jun, [facility] [place] [facility] [address] [id number] [place] [address] Jun, [facility] [place] [facility] [address] [id number] [place] [address] Jun, [facility] [place] [facility] [address] [id number] [place] [address]- [address] Jun, [facility] [place] [facility] [address] [id number] [place] [address]- [address] Jun, [facility] [place] [facility] [address] [id number] [place] [address] May, [facility] [place] [facility] [address] [id number] [place] [address] May, [facility] [place] [facility] [address] [id number] [place] [address]- [address] Apr, [facility] [place] [facility] [address] [id number] [place] [address]- [address] Apr, [facility] [place] [facility] [address] [id number] [place] [address] Mar, [facility] [place] [facility] [address] [id number] [place] [address]- [address] Mar, [facility] [place] [facility] [address] [id number] [place] [address]- [address] Mar, [facility] [place] [facility] [address] [id number] [place] [address]- [address] Mar, [facility] [place] [facility] [address] [id number] [place] [address]- [address] Feb, [facility] [place] [facility] [address] [id number] [place] [address]- [address] Feb, [facility] [place] [facility] [address] [id number] [place] [address]- [address] January, [facility] [place] [facility] [address] [id number] [place] [address]- [address]702 January, [facility] [place] [facility] [address] [id number] [place] [address] January, [facility] [place] [facility] [address] [id number] [place] [address]- [address] January, [facility] [place] [facility] [address] [id number] [place] [address]- 9[address] January, [facility] [place] [facility] [address] [id number] [place] [address]- [address] January, [facility] [place] [facility] [address] [id number] [place] [address] Dec, [facility] [place] [facility] [address] [id number] [place] [address]- [address] Dec, [facility] [place] [facility] [address] [id number] [place] [address]- [address] Nov, [facility] [place] [facility] [address] [id number] [place] [address]- 6[address] Nov, [facility] [place] [facility] [address] [id number] [place] [address]- [address] Oct, [facility] [place] [facility] [address] [id number] [place] [address]- [address] Oct, [facility] [place] [facility] [address] [id number] [place] [address]- [address] Sep, [facility] [place] [facility] [address] [id number], [place] [address]- [address] Sep, [facility] [address] [id number] [place] [address]- 94[address] Sep, [facility] [place] [facility] [address] [facility] [id number], [place] [address]- [address] Sep, [facility] [address] [facility] [id number] [place] [address] Aug, [facility] [place] [facility] [address] [id number] [place] [address]- [address] Aug, [facility] [place] [facility] [address] [facility] [id number] [place] [address]- [address] Jul, [facility] [place] [facility] [address] [id number] [place] [address]- 9[address] Jul, [facility] [address] [address]- [address] Jun, [facility] [place] [facility] [address] [id number] [place] [address]- [address] May, [facility] [place] [facility] [address] [place] [id number] [address]- [address] Mar, [facility] [place] [facility] [address] [place] [id number] [address]- [address] Feb, [facility] [place] [facility] [address] [id number], [place] [address]- 35[address] Feb, [facility] [place] [facility] [address] [id number], [place] [address]- [address] Feb, [facility] [place] [facility] [address] [id number], [place] [address]- [address] January, [facility] [place] [facility] [address] [facility] [id number], [place] [address]- [address] 30 Dec, 2012 [facility] [place] [facility] [address] [facility] [id number], [place] [address]- [address] 15 Dec, 2012 [facility] [place] [facility] [address] [id number] [place] [address]- [address]8 15 Dec, 2012 [facility] [address] [id number] [place] [address]- 0597 09 Dec, 2012 [facility] [place] [facility] [address] [id number] [place] [address]- [address] 02 Dec, 2012 [facility] [address] [id number] [place] [address]- [address]96 Nov, [facility] [place] [facility] [address] [id number] [place] [address]- 6898 Oct, [facility] [place] [facility] [address] [id number] [place] [address]- 4056 Sep, [facility] [place] [facility] [address] [id number] [place] [address]- 6387 Sep, [facility] [address] [id number] [place] [address]- 4265 Sep, [facility] [address] [id number] [place] [address]- 4365 Sep, [facility] [address] [id number] [place] [address]- 4244 Aug, [facility] [address] [id number] [place] [address]- 9352 Aug, [facility] [address] [id number] [place] [address]- 8277 Aug, [facility] [place] [facility] [address] [id number] [place] [address]- 9409 Aug, [facility] [place] [facility] [address] [id number] [place] [address] 2546 Aug, [facility] [place] [facility] [address] [id number] [place] [address]- 2546 18 Aug, 2012 [facility] [place] [facility] [address] [id number] [place] [address]- 1461 18 Aug, 2012 [facility] [place] [facility] [address] [id number] [place] [address]- 5546 18 Aug, 2012 [facility] [place] [facility] [address] [id number] [place] [address]- 8526 Aug, [facility] [place] [facility] [address] [facility] [id number] [place] [address]- 3646 Aug, [facility] [place] [facility] [address] [id number] [place] [address]- 6785 Aug, [facility] [place] [facility] [address] [id number] [place] [address]- 3064 Aug, [facility] [place] [facility] [address] [id number] [place] [address]- 1738 Aug, [facility] [place] [facility] [address] [facility] [id number] [place] [address]- 8449 Aug, [facility] [place] [facility] [address] [id number], [place] [address]- 7855 Aug, [facility] [place] [facility] [address] [id number] [place] [address]- 2838 Aug, [facility] [place] [facility] [address] [facility] [id number], [place] [address]- 5967 Jul, [facility] [place] [facility] [address] [id number], [place] [address]- 405[address] Jul, [facility] [place] [facility] [address] [id number], [place] [address]- 0095 Jul, [facility] [place] [facility] [address] [id number], [place] [address]- 5[address] Jul, [facility] [place] [facility] [address] [facility] [id number], [place] [address]- 2501 Jun, [facility] [place] [facility] [address] [facility] [id number], [place] [address]- 3475 30 May, 2012 [facility] [place] [facility] [address] [id number] [place] [address]- 9166 19 May, 2012 [facility] [place] [facility] [address] [id number] [place] [address] 2546 14 May, 2012 [facility] [place] [facility] [address] [id number] [place] [address] 2546 13 May, 2012 [facility] [place] [facility] [address] [id number] [place] [address] 2546 11 May, 2012 [facility] [place] [facility] [address] [id number] [place] [address] 2546 10 May, 2012 [facility] [place] [facility] [address] [id number] [place] [address]- 9046 08 May, 2012 [facility] [place] [facility] [address] [id number] [place] [address]- 4697 28 Apr, 2012 [facility] [place] [facility] [address] [id number] [place] [address]- 3566 Apr, [facility] [place] [facility] [address] [id number] [place] [address]- 3398 Apr, [facility] [place] [facility] [address] [id number] [place] [address]- 8272 Apr, [facility] [place] [facility] [address] [id number] [place] [address]- 4762 Mar, [facility] [place] [facility] [address] [id number] [place] [address] 2546 Mar, [facility] [place] [facility] [address] [id number] [place] [address]- 2549 Mar, [facility] [place] [facility] [address] [id number] [place] [address] 2546 Mar, [facility] [place] [facility] [address] [id number] [place] [address]- 2546 Mar, [facility] [place] [facility] [address] [id number] [place] [address]- 2540 Mar, [facility] [address] [facility] [id number], [place] [address]- 6366 Mar, [facility] [address] [facility] [id number], [place] [address]- 0736 January, [facility] [address] [facility] [id number], [place] [address]- 8893 Dec, [facility] [address] [facility] [id number], [place] [address]- 3836 Dec, IMMUNIZATIONS No Known Immunizations SOCIAL HISTORY Never Assessed REASON FOR VISIT EMR-[facility] PLAN OF CARE VITAL SIGNS MEDICATIONS Unknown [...]
--- OUTSIDE RECORDS SUMMARY | 2019-01-14 16:33 | XMS REPORT | Continuity of Care Document ---
Author Organization Unknown Address Unknown Allergies Active Description Code Type Severity Reaction [...] APRN 465.9 UPPER RESPIRATORY INFECTION 12/02/2009 [facility], DIPTI Torres 465.9 UPPER RESPIRATORY INFECTION 12/02/2009 ELVIN COLES APRN 465.9 UPPER RESPIRATORY INFECTION 12/02/2009 DIOMEDES TOM ERIKA 465.9 UPPER RESPIRATORY INFECTION 09/11/2010 Ot 599.0 09/11/2010 Ot 789.09 01/07/2012 MIRIAM VILLANUEVA MD 616.10 VAGINITIS AND VULVOVAGINITIS UNSPECIFIED 01/07/2012 MIRIAM VILLANUEVA MD 616.10 VAGINITIS AND VULVOVAGINITIS UNSPECIFIED 01/07/2012 LAZARA EDGE APRN 616.10 VAGINITIS AND VULVOVAGINITIS UNSPECIFIED 01/07/2012 616.10 VAGINITIS AND VULVOVAGINITIS UNSPECIFIED 01/07/2012 616.10 VAGINITIS AND VULVOVAGINITIS UNSPECIFIED 01/07/2012 KISHORE ANDREWS, FILIPE Perdomo 616.10 VAGINITIS AND VULVOVAGINITIS UNSPECIFIED 01/07/2012 PEARL PATEL APRN 616.10 VAGINITIS AND VULVOVAGINITIS UNSPECIFIED 01/07/2012 PEARL PATEL APRN 616.10 VAGINITIS AND VULVOVAGINITIS UNSPECIFIED 01/07/2012 616.10 VAGINITIS AND VULVOVAGINITIS UNSPECIFIED 01/07/2012 616.10 VAGINITIS AND VULVOVAGINITIS UNSPECIFIED 01/07/2012 616.10 VAGINITIS AND VULVOVAGINITIS UNSPECIFIED 01/07/2012 PEARL PATEL APRN 616.10 VAGINITIS AND VULVOVAGINITIS UNSPECIFIED 01/07/2012 PEARL PATEL APRN 616.10 VAGINITIS AND VULVOVAGINITIS UNSPECIFIED 01/07/2012 MERY SUMMERS DO 616.10 VAGINITIS AND VULVOVAGINITIS UNSPECIFIED 01/07/2012 MIRIAM VILLANUEVA MD 616.10 VAGINITIS AND VULVOVAGINITIS UNSPECIFIED 01/07/2012 DIOMEDES TOM ERIKA 616.10 VAGINITIS AND VULVOVAGINITIS UNSPECIFIED 01/07/2012 DIOMEDES TOM ERIKA 616.10 VAGINITIS AND VULVOVAGINITIS UNSPECIFIED 01/07/2012 DIOMEDES TOM, ERIKA 616.10 VAGINITIS AND VULVOVAGINITIS UNSPECIFIED 01/07/2012 FLORENCE BRENNAN APRN 616.10 VAGINITIS AND VULVOVAGINITIS UNSPECIFIED 01/07/2012 [facility], DIPTI R 616.10 VAGINITIS AND VULVOVAGINITIS UNSPECIFIED 01/07/2012 SANKET ADVERTISING CLERK, ELVIN A 616.10 VAGINITIS AND VULVOVAGINITIS UNSPECIFIED 01/07/2012 DIOMEDES ADVERTISING CLERK, ERIKA 616.10 VAGINITIS AND VULVOVAGINITIS UNSPECIFIED 03/17/2012 MIRIAM VILLANUEVA MD 786.05 SHORTNESS OF BREATH 03/17/2012 MIRIAM VILLANUEVA MD 786.05 SHORTNESS OF BREATH 03/17/2012 LAZARA EDGE APRN 786.05 SHORTNESS OF BREATH 03/17/2012 786.05 SHORTNESS OF BREATH 03/17/2012 786.05 SHORTNESS OF BREATH 03/17/2012 KISHORE ANDREWS, FILIPE Perdomo 786.05 SHORTNESS OF BREATH 03/17/2012 AMANDA TOM PEARL CORONADOH 786.05 SHORTNESS OF BREATH 03/17/2012 PATEL NEGRO PEARL JOSE 786.05 SHORTNESS OF BREATH 03/17/2012 786.05 SHORTNESS OF BREATH 03/17/2012 786.05 SHORTNESS OF BREATH 03/17/2012 786.05 SHORTNESS OF BREATH 03/17/2012 PATEL NEGRO PEARL JOSE 786.05 SHORTNESS OF BREATH 03/17/2012 [address]EL [address] [facility] 786.05 SHORTNESS OF BREATH 03/17/2012 MERY SUMMERS DO 786.05 SHORTNESS OF BREATH 03/17/2012 MIRIAM VILLANEUVA MD 786.05 SHORTNESS OF BREATH 03/17/2012 DIOMEDES ADVERTISING CLERK, ERIKA 786.05 SHORTNESS OF BREATH 03/17/2012 DIOMEDES ADVERTISING CLERK, ERIKA 786.05 SHORTNESS OF BREATH 03/17/2012 DIOMEDES ADVERTISING CLERK, ERIKA 786.05 SHORTNESS OF BREATH 03/17/2012 FLORENCE BRENNAN APRN 786.05 SHORTNESS OF BREATH 03/17/2012 [facility], DIPTI R 786.05 SHORTNESS OF BREATH 03/17/2012 ELVIN COLES APRN A 786.05 SHORTNESS OF BREATH 03/17/2012 DIOMEDES ADVERTISING CLERK, ERIKA 786.05 SHORTNESS OF BREATH 03/24/2012 MIRIAM VILLANUEVA MD V76.2 CERVICAL CANCER SCREENING (PAP SMEAR) 03/24/2012 MIRIAM VILLANUEVA MD V76.2 CERVICAL CANCER SCREENING (PAP SMEAR) 03/24/2012 LAZARA EDGE APRN V76.2 CERVICAL CANCER SCREENING (PAP SMEAR) 03/24/2012 V76.2 CERVICAL CANCER SCREENING (PAP SMEAR) 03/24/2012 V76.2 CERVICAL CANCER SCREENING (PAP SMEAR) 03/24/2012 KISHORE ANDREWS, FILIPE Perdomo V76.2 CERVICAL CANCER SCREENING (PAP SMEAR) 03/24/2012 PEARL PATEL APRN V76.2 CERVICAL CANCER SCREENING (PAP SMEAR) 03/24/2012 AMANDA TOM, PEARL JOSE V76.2 CERVICAL CANCER SCREENING (PAP SMEAR) 03/24/2012 [...] V76.2 CERVICAL CANCER SCREENING (PAP SMEAR) 03/24/2012 ERIKA HERCULES APRN V76.2 CERVICAL CANCER SCREENING (PAP SMEAR) 03/24/2012 ERIKA HERCULES APRN V76.2 CERVICAL CANCER SCREENING (PAP SMEAR) 03/24/2012 ERIKA HERCULES APRN V76.2 CERVICAL CANCER SCREENING (PAP SMEAR) 03/24/2012 FLORENCE BRENNAN APRN V76.2 CERVICAL CANCER SCREENING (PAP SMEAR) 03/24/2012 [facility], DIPTI R V76.2 CERVICAL CANCER SCREENING (PAP SMEAR) 03/24/2012 ELVIN COLES APRN V76.2 CERVICAL CANCER SCREENING (PAP SMEAR) 03/24/2012 ERIKA HERCULES APRN V76.2 CERVICAL CANCER SCREENING (PAP SMEAR) 04/10/2012 MIRIAM VILLANUEVA MD 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 04/10/2012 MIRIAM VILLANUEVA MD 300.3 AN OBCESS COMP DIS 04/10/2012 MIRIAM VILLANUEVA MD 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 04/10/2012 MIRIAM VILLANUEVA MD 300.3 AN OBCESS COMP DIS 04/10/2012 LAZARA EDGE APRN S 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 04/10/2012 LAZARA EDGE APRN S 300.3 AN OBCESS COMP DIS 04/10/2012 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 04/10/2012 300.3 AN OBCESS COMP DIS 04/10/2012 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 04/10/2012 300.3 AN OBCESS COMP DIS 04/10/2012 FILIPE CUETO MD M 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 04/10/2012 KISHORE ANDRWES, FILIPE M 300.3 AN OBCESS COMP DIS 04/10/2012 AMANDA TOM PEARL JOSE 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 04/10/2012 PEARL PATEL APRN 300.3 AN OBCESS COMP DIS 04/10/2012 PEARL PATEL APRN 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 04/10/2012 PEARL PATEL APRN 300.3 AN OBCESS COMP DIS 04/10/2012 296.32 [...] APRN 300.3 AN OBCESS COMP DIS 04/10/2012 SUMMERS DO MERY K 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 04/10/2012 SUMMERS DO MERY K 300.3 AN OBCESS COMP DIS 04/10/2012 MIRIAM VILLANUEVA MD 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 04/10/2012 MIRIAM VILLANUEVA MD 300.3 AN OBCESS COMP DIS 04/10/2012 DIOMEDES ADVERTISING CLERK, ERIKA 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 04/10/2012 DIOMEDES ADVERTISING CLERK, ERIKA 300.3 AN OBCESS COMP DIS 04/10/2012 DIOMEDES ADVERTISING CLERK, ERIKA 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 04/10/2012 DIOMEDES ADVERTISING CLERK, ERIKA 300.3 AN OBCESS COMP DIS 04/10/2012 DIOMEDES ADVERTISING CLERK, ERIKA 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 04/10/2012 DIOMEDES ADVERTISING CLERK, ERIKA 300.3 AN OBCESS COMP DIS 04/10/2012 MADL ADVERTISING CLERK, FLORENCE L 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 04/10/2012 MADL ADVERTISING CLERK, FLORENCE L 300.3 AN OBCESS COMP DIS 04/10/2012 [facility], DIPTI R 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 04/10/2012 [facility], DIPTI R 300.3 AN OBCESS COMP DIS 04/10/2012 SANKETABDULLAHI TOM ELVIN A 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 04/10/2012 SANKET TOM ELVIN A 300.3 AN OBCESS COMP DIS 04/10/2012 DIOMEDES ADVERTISING CLERK, ERIKA 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 04/10/2012 DIOMEDES ADVERTISING CLERK, ERIKA 300.3 AN OBCESS COMP DIS 04/22/2012 [...] PATEL APRN 300.02 AN GEN ANXIETY 05/17/2012 AMANDA TOM PEARL JOSE 300.02 AN GEN ANXIETY 05/17/2012 MERY SUMMERS DO 300.02 AN GEN ANXIETY 05/17/2012 MIRIAM VILLANUEVA MD 300.02 AN GEN ANXIETY 05/17/2012 DIOMEDES NEGRO, ERIKA 300.02 AN GEN ANXIETY 05/17/2012 DIOMEDES NEGRO, ERIKA 300.02 AN GEN ANXIETY 05/17/2012 DIOMEDES ADVERTISING CLERK, ERIKA 300.02 AN GEN ANXIETY 05/17/2012 ANU NEGROFLORENCE Taj 300.02 AN GEN ANXIETY 05/17/2012 [facility], DIPTI R 300.02 AN GEN ANXIETY 05/17/2012 SANKETJensen TOM ELVIN A 300.02 AN GEN ANXIETY 05/17/2012 DIOMEDES ERIKA TOM 300.02 AN GEN ANXIETY 05/20/2012 MIRIAM VILLANUEVA [...] MD 795.03 ABNORMAL PAP - LGSIL 05/20/2012 DIOMEDES ERIKA TOM 795.03 ABNORMAL PAP - LGSIL 05/20/2012 ERIKA HERCULES APRN 795.03 ABNORMAL PAP - LGSIL 05/20/2012 ERIKA HERCULES APRN 795.03 ABNORMAL PAP - LGSIL 05/20/2012 ANU NEGROFLORENCE 795.03 ABNORMAL PAP - LGSIL 05/20/2012 [facility], DIPTI Torres 795.03 ABNORMAL PAP - LGSIL 05/20/2012 SANKET NEGROELVIN Sami 795.03 ABNORMAL PAP - LGSIL 05/20/2012 ERIKA [...] ABSCESS OF FINGER 08/26/2012 AMANDA TOM PEARL JSOE 681.00 UNSPECIFIED CELLULITIS AND ABSCESS OF FINGER [...] CELLULITIS AND ABSCESS OF FINGER 08/26/2012 [facility], DIPTI R 681.00 UNSPECIFIED CELLULITIS AND ABSCESS OF FINGER 08/26/2012 ELVIN COLES APRN A 681.00 UNSPECIFIED CELLULITIS AND ABSCESS OF [...] JOSE 884.0 WOUND OPEN UPPER LIMB 09/05/2012 PEARL PATEL APRN JOSE 884.0 WOUND OPEN UPPER LIMB 09/05/2012 MERY SUMMERS DO 884.0 WOUND OPEN UPPER LIMB 09/05/2012 KAY ANDREWS, MIRIAM 884.0 WOUND OPEN UPPER LIMB 09/05/2012 ERIKA HERCULES APRN 884.0 WOUND OPEN UPPER LIMB 09/05/2012 DIOMEDES TOM ERIKA 884.0 WOUND OPEN UPPER LIMB 09/05/2012 JANY HERCULES APRNETTE 884.0 WOUND OPEN UPPER LIMB 09/05/2012 MADL ADVERTISING CLERK, FLORENCE L 884.0 WOUND OPEN UPPER LIMB 09/05/2012 [facility], DIPTI R 884.0 WOUND OPEN UPPER LIMB 09/05/2012 SANKET ADVERTISING CLERK, ELVIN A 884.0 WOUND OPEN UPPER LIMB 09/05/2012 DIOMEDES ADVERTISING CLERK, ERIKA 884.0 WOUND OPEN UPPER LIMB 09/12/2012 Ot 681.00 09/15/2012 682.9 CELLULITIS AND ABSCESS OF UNSPECIFIED SITES 09/15/2012 KISHORE ANDREWS, FILIPE Perdomo 682.9 CELLULITIS AND ABSCESS OF UNSPECIFIED SITES 09/15/2012 PATEL ADVERTISING CLERK, PEARL CORONADOH 682.9 CELLULITIS AND ABSCESS OF UNSPECIFIED SITES 09/15/2012 PATEL ADVERTISING CLERK, PEARL CORONADOH 682.9 CELLULITIS AND ABSCESS OF UNSPECIFIED SITES 09/15/2012 682.9 CELLULITIS AND ABSCESS OF UNSPECIFIED SITES 09/15/2012 682.9 CELLULITIS AND ABSCESS OF UNSPECIFIED SITES 09/15/2012 682.9 CELLULITIS AND ABSCESS OF UNSPECIFIED SITES 09/15/2012 PATEL ADVERTISING CLERK, PEARL CORONADOH 682.9 CELLULITIS AND ABSCESS OF UNSPECIFIED SITES 09/15/2012 PATEL ADVERTISING CLERK, PEARL JOSE 682.9 CELLULITIS AND ABSCESS OF UNSPECIFIED SITES 09/15/2012 MERY SUMMERS DO 682.9 CELLULITIS AND ABSCESS OF UNSPECIFIED SITES 09/15/2012 MIRIAM VILLANUEVA MD 682.9 CELLULITIS AND ABSCESS OF UNSPECIFIED SITES 09/15/2012 DIOMEDES ADVERTISING CLERK, ERIKA 682.9 CELLULITIS AND ABSCESS OF UNSPECIFIED SITES 09/15/2012 DIOMEDES ADVERTISING CLERK, ERIKA 682.9 CELLULITIS AND ABSCESS OF UNSPECIFIED SITES 09/15/2012 DIOMEDES ADVERTISING CLERK, ERIKA 682.9 CELLULITIS AND ABSCESS OF UNSPECIFIED SITES 09/15/2012 MADL ADVERTISING CLERK, FLORENCE L 682.9 CELLULITIS AND ABSCESS OF UNSPECIFIED SITES 09/15/2012 [facility], DIPTI R 682.9 CELLULITIS AND ABSCESS OF UNSPECIFIED SITES 09/15/2012 SANKET ADVERTISING CLERK, ELVIN A 682.9 CELLULITIS AND ABSCESS OF UNSPECIFIED SITES 09/15/2012 DIOMEDES ADVERTISING CLERK, ERIKA 682.9 CELLULITIS AND ABSCESS OF UNSPECIFIED SITES 09/23/2012 DANIEL CUETO MDVIER M 041.12 MRSA, METHICILLIN RESISTANT 09/23/2012 PATEL APRN, PEARL JOSE 041.12 MRSA, METHICILLIN RESISTANT 09/23/2012 PATEL ADVERTISING CLERK, PEARL JOSE 041.12 MRSA, METHICILLIN RESISTANT 09/23/2012 041.12 MRSA, METHICILLIN RESISTANT 09/23/2012 041.12 MRSA, METHICILLIN RESISTANT 09/23/2012 041.12 MRSA, METHICILLIN RESISTANT 09/23/2012 AMANDA TOM PEALR JOSE 041.12 MRSA, METHICILLIN RESISTANT 09/23/2012 PATEL ADVERTISING CLERK, PEARL JOSE 041.12 MRSA, METHICILLIN RESISTANT 09/23/2012 MERY SUMMERS DO 041.12 MRSA, METHICILLIN RESISTANT 09/23/2012 KAY ANDREWS, MIRIAM 041.12 MRSA, METHICILLIN RESISTANT 09/23/2012 DIOMEDES ADVERTISING CLERK, ERIKA 041.12 MRSA, METHICILLIN RESISTANT 09/23/2012 DIOMEDES ADVERTISING CLERK, ERIKA 041.12 MRSA, METHICILLIN RESISTANT 09/23/2012 DIOMEDES ADVERTISING CLERK, ERIKA 041.12 MRSA, METHICILLIN RESISTANT 09/23/2012 FLORENCE BRENNAN APRN 041.12 MRSA, METHICILLIN RESISTANT 09/23/2012 [facility], DIPTI R 041.12 MRSA, METHICILLIN RESISTANT 09/23/2012 ELVIN COLES APRN A 041.12 MRSA, METHICILLIN RESISTANT 09/23/2012 DIOMEDES ADVERTISING CLERK, ERIKA 041.12 MRSA, METHICILLIN RESISTANT 11/27/2012 Ot [...] IN JOINT INVOLVING SHOULDER REGION 12/22/2012 DIOMEDES ADVERTISING CLERK, ERIKA 354.0 CARPAL TUNNEL SYNDROME 12/22/2012 DIOMEDES ADVERTISING CLERK, ERIKA 719.41 PAIN IN JOINT INVOLVING SHOULDER REGION 12/22/2012 DIOMEDES ADVERTISING CLERK, ERIKA 354.0 CARPAL TUNNEL SYNDROME 12/22/2012 DIOMEDES ADVERTISING CLERK, ERIKA 719.41 PAIN IN JOINT INVOLVING SHOULDER REGION 12/22/2012 DIOMEDES ADVERTISING CLERK ERIKA 354.0 CARPAL TUNNEL SYNDROME 12/22/2012 DIOMEDES ADVERTISING CLERK ERIKA 719.41 PAIN IN JOINT INVOLVING SHOULDER REGION 12/22/2012 FLORENCE BRENNAN APRN L 354.0 CARPAL TUNNEL SYNDROME 12/22/2012 FLORENCE BRENNAN APRN L 719.41 PAIN IN JOINT INVOLVING SHOULDER REGION 12/22/2012 [facility], DIPTI R 354.0 CARPAL TUNNEL SYNDROME 12/22/2012 [facility], DIPTI R 719.41 PAIN IN JOINT INVOLVING SHOULDER REGION 12/22/2012 ELVIN COLES APRN A 354.0 CARPAL TUNNEL SYNDROME 12/22/2012 ELVIN COLES APRN A 719.41 PAIN IN JOINT INVOLVING SHOULDER REGION 12/22/2012 DIOMEDES ADVERTISING CLERK, ERIKA 354.0 CARPAL TUNNEL SYNDROME 12/22/2012 DIOMEDES TOM ERIKA 719.41 PAIN IN JOINT INVOLVING SHOULDER REGION 02/11/2013 DIMAS KHAN MD Ot 721.0 02/11/2013 DIMAS KHAN MD Ot V57.1 02/23/2013 461.9 SINUSITIS ACUTE 02/23/2013 PEARL PATEL APRN 461.9 SINUSITIS ACUTE 02/23/2013 PEARL PATEL APRN 461.9 SINUSITIS ACUTE 02/23/2013 MERY SUMMERS DO 461.9 SINUSITIS ACUTE 02/23/2013 MIRIAM VILLANUEVA MD 461.9 SINUSITIS ACUTE 02/23/2013 DIOMEDES ADVERTISING CLERK, ERIKA 461.9 SINUSITIS ACUTE 02/23/2013 DIOMEDES ADVERTISING CLERK, ERIKA 461.9 SINUSITIS ACUTE 02/23/2013 DIOMEDES ADVERTISING CLERK, ERIKA 461.9 SINUSITIS ACUTE 02/23/2013 FLORENCE BRENNAN APRN 461.9 SINUSITIS ACUTE 02/23/2013 [facility], DIPTI R 461.9 SINUSITIS ACUTE 02/23/2013 SANKETELVIN FERNANDO APRN A 461.9 SINUSITIS ACUTE 02/23/2013 DIOMEDES ADVERTISING CLERK, ERIKA 461.9 SINUSITIS ACUTE 09/21/2013 MERY SUMMERS DO V65.42 COUNSELING - SMOKING CESSATION 09/21/2013 MIRIAM VILLANUEVA MD V65.42 COUNSELING - SMOKING CESSATION 09/21/2013 DIOMEDES NEGRO ERIKA V65.42 COUNSELING - SMOKING CESSATION 09/21/2013 DIOMEDES ADVERTISING CLERK, ERIKA V65.42 COUNSELING - SMOKING CESSATION 09/21/2013 DIOMEDES NEGRO ERIKA V65.42 COUNSELING - SMOKING CESSATION 09/21/2013 FLORENCE BRENNAN APRN V65.42 COUNSELING - SMOKING CESSATION 09/21/2013 [facility], DIPTI R V65.42 COUNSELING - SMOKING CESSATION 09/21/2013 ELVIN COLES APRN A V65.42 COUNSELING - SMOKING CESSATION 09/21/2013 DIOMEDESERIKA PANDA APRN V65.42 COUNSELING - SMOKING CESSATION 11/01/2013 ROJAS [...] RECURRENT IN PART OR UNSPECIFIED REMISSION 01/26/2014 [facility], DIPTI R 296.35 MO DEPRESSIVE RECURRENT IN PART OR UNSPECIFIED REMISSION 01/26/2014 SANKET ADVERTISING CLERK, ELVIN A 296.35 MO DEPRESSIVE RECURRENT IN PART OR UNSPECIFIED REMISSION 01/26/2014 DIOMEDES TOM ERIKA 296.35 MO DEPRESSIVE RECURRENT IN PART OR UNSPECIFIED REMISSION 05/06/2014 NICHOLE CLANCY ADVERTISING CLERK Ot 590.80 05/06/2014 NICHOLE CLANCY APRN Ot 789.04 05/21/2014 JANY HERCULES APRNETTE 296.33 MO DEPRESSIVE RECURRENT SEVERE W/O PSYCHOTIC BEHAVIOR 05/21/2014 DIOMEDES TOM ERIKA 296.33 MO DEPRESSIVE RECURRENT SEVERE W/O PSYCHOTIC BEHAVIOR 05/21/2014 HIEN BRENNAN APRNWNYA L 296.33 MO DEPRESSIVE RECURRENT SEVERE W/O PSYCHOTIC BEHAVIOR 05/21/2014 [facility], DIPTI R 296.33 MO DEPRESSIVE RECURRENT SEVERE W/O PSYCHOTIC BEHAVIOR 05/21/2014 SANKET TOM ELVIN A 296.33 MO DEPRESSIVE RECURRENT SEVERE W/O [...] 07/26/2014 DESIRE JOHNSTON MD Ot V58.69 09/08/2014 MADL NEGRO FLORENCE L 729.5 PAIN IN LIMB 09/08/2014 MADL NEGRO, FLORECNE L 782.0 DISTURBANCE OF SKIN SENSATION 09/08/2014 [facility], DIPTI R 729.5 PAIN IN LIMB 09/08/2014 [facility], DIPTI R 782.0 DISTURBANCE OF SKIN SENSATION 09/08/2014 SANKETJensen TOM ELVIN A 729.5 PAIN IN LIMB 09/08/2014 SANKET TOM ELVIN A 782.0 DISTURBANCE OF SKIN SENSATION 09/08/2014 DIOMEDES ADVERTISING CLERK, ERIKA 729.5 PAIN IN LIMB 09/08/2014 DIOMEDES ADVERTISING CLERK, ERIKA 782.0 DISTURBANCE OF SKIN SENSATION 09/08/2014 Ot 681.00 09/08/2014 CAM XIE MD Ot 723.1 09/08/2014 CAM XIE MD Ot 729.5 10/27/2014 [facility], DIPTI R 614.9 UNSPECIFIED INFLAMMATORY DISEASE OF FEMALE PELVIC ORGANS AND TISSUES 10/27/2014 [facility], DIPTI R 626.4 IRREGULAR MENSTRUAL CYCLE 10/27/2014 [facility], DIPTI R 788.1 DYSURIA 10/27/2014 [facility], DIPTI R V72.[address] PATROL OFFICER EXAM, ROUTINE 10/27/2014 [facility] V73.81 [facility] 10/27[facility] V74.5 STD SCREEN 10/27/2014 [facility], DIPTI R V76.10 BREAST CANCER SCREENING 10/27/2014 ELVIN COLES APRN A 614.9 UNSPECIFIED INFLAMMATORY DISEASE OF FEMALE PELVIC ORGANS AND TISSUES 10/27/2014 SANKET TOM ELVIN A 626.4 IRREGULAR MENSTRUAL CYCLE 10/27/2014 SANKET TOM ELVIN A 788.1 DYSURIA 10/27/2014 DAR COLES APRNIDI A V72.[address] PATROL OFFICER EXAM, ROUTINE 10/27/2014 DAR COLES APRNIDI A V73.81 HPV SCREENING 10/27/2014 SANKET TOM ELVIN A V74.5 STD SCREEN 10/27/2014 DAR COLES APRNIDI A V76.10 BREAST CANCER SCREENING 10/27/2014 DIOMEDES TOM ERIKA 614.9 UNSPECIFIED INFLAMMATORY DISEASE OF FEMALE PELVIC ORGANS AND TISSUES 10/27/2014 DIOMEDES ADVERTISING CLERK, ERIKA 626.4 IRREGULAR MENSTRUAL CYCLE 10/27/2014 DIOMEDES ADVERTISING CLERK, ERIKA 788.1 DYSURIA 10/27/2014 DIOMEDES ADVERTISING CLERK, ERIKA V72.[address] PATROL OFFICER EXAM, ROUTINE 10/27/2014 DIOMEDES ADVERTISING CLERK, ERIKA V73.81 HPV SCREENING 10/27/2014 DIOMEDES ADVERTISING CLERK, ERIKA V74.5 STD SCREEN 10/27/2014 DIOMEDES ADVERTISING CLERK, ERIKA V76.10 BREAST CANCER SCREENING 12/02/2014 [facility], DIPTI Torres 296.31 MO DEPRESSIVE RECURRENT MILD 12/02/2014 SANKET NEGROELVIN 296.31 MO DEPRESSIVE RECURRENT MILD 12/02/2014 ERIKA HERCULES APRN 296.31 MO DEPRESSIVE RECURRENT MILD 08/27/2015 Ot 681.00 08/27/2015 ROJAS ANDREWS, CAM Gallardo Ot 723.1 08/27/2015 ROJAS ANDREWS, CAM Gallardo Ot 729.5 08/27/2015 DEMETRIO ANDREWS, BOB Parra Ot N12 TUBULO-INTERSTITIAL NEPHRITIS, NOT SPCF 08/29/2015 Ot 681.00 08/29/2015 ROJAS ANDREWS, CAM A Ot 723.1 08/29/2015 ROJAS ANDREWS, CAM Gallardo Ot 729.5 08/29/2015 KAY ANDREWS, MIIRAM Palomino Ot A41.9 08/29/2015 KAY ANDREWS, MIRIAM Palomino Ot B19.20 08/29/2015 KAY ANDREWS, MIRIAM Palomino Ot B96.20 08/29/2015 KAY ANDREWS, MIRIAM Paloimno Ot F17.210 08/29/2015 KAY ANDREWS, MIRIAM Palomino Ot N12 08/30/2015 KAY ANDREWS, MIRIAM Palomino Ot A41.9 08/30/2015 KAY ANDREWS, MIRIAM [...] 09/16/2015 Ot 681.00 09/16/2015 ROJAS ANDREWS, CAM Gallardo Ot 723.1 09/16/2015 ROJAS ANDREWS, CAM Gallardo Ot 729.5 02/11/2016 BOB ATKINSON MD, Ot N12 TUBULO-INTERSTITIAL NEPHRITIS, NOT SPCF 07/09/2016 NICHOLE CLANCY APRN Ot K02.9 DENTAL CARIES, UNSPECIFIED 07/09/2016 NICHOLE CLANCY APRN Ot K04.7 PERIAPICAL ABSCESS WITHOUT SINUS 07/10/2016 BOB ATKINSON MD Ot F17.210 NICOTINE DEPENDENCE, CIGARETTES, UNCOMPL 07/10/2016 BOB ATKINSON MD Ot K02.9 DENTAL CARIES, UNSPECIFIED 07/10/2016 BOB ATKINSON MD, Ot K08.9 DISORDER OF TEETH AND SUPPORTING STRUCTU 06/09/2018 EVE ANDREWS, PILI Garcia Ot B19.20 UNSPECIFIED VIRAL HEPATITIS C WITHOUT HE 06/09/2018 PILI PRADO MD Ot J45.909 UNSPECIFIED ASTHMA, UNCOMPLICATED 06/09/2018 PILI PRADO MD Ot L02.511 CUTANEOUS ABSCESS OF RIGHT HAND 06/09/2018 PILI PRADO MD Ot L03.113 CELLULITIS OF RIGHT UPPER LIMB 06/09/2018 PILI PRADO MD Ot M79.89 OTHER SPECIFIED SOFT TISSUE DISORDERS 06/09/2018 PILI PRADO MD Ot Z87.440 PERSONAL HISTORY OF URINARY (TRACT) INFE 06/09/2018 PILI PRADO MD Ot Z87.448 PERSONAL HISTORY OF OTHER DISEASES OF UR 06/09/2018 PILI PRADO MD Ot Z98.51 TUBAL LIGATION STATUS Procedures Code Description Performed By [facility]formed [facility] 09/15/2012 ENRICO BELTRAN 12/22/2012 36820 [employer] 09/08/2014 PHYSICAL PHYSICAL THERAPY, VIA MICHI 09/08/2014 05084 PSYCH DIAGNOSTIC EVALUATION 12/02/2014 76152 GC/CHLAM URINE (STATE) 12/13/2014 Results Test Result [...] blood basophil count (count/volume) 0.0 10*3/uL 0.0-0.1 Gram stain microscopy - 06/07/18 10:33 Gram stain microscopy Rare Gram positive cocci [facility] Bacteria identification in wound by culture - 06/07/18 10:33 Bacteria identification in wound by culture SEE COMMEN [facility] FREE TEXT EXTERNAL METHICILLIN-RESISTANT STAPHYLOCOCCUS NRG QUANTITY OF GROWTH . NR FREE TEXT ENTRY 2 AUREUS. SENSITIVITY REPORTED 06/09 1305 NR FREE TEXT ENTRY 3 PRECAUTIONS. NR RML Sensitivity Panel - 06/07/18 10:33 Oxacillin susceptibility test by minimum inhibitory concentration R NRG Clindamycin susceptibility test by minimum inhibitory concentration <= NRG Erythromycin susceptibility test by minimum inhibitory concentration <= NRG Trimethoprim/sulfamethoxazole susceptibility test by minimum inhibitoryconcentration S NRG Vancomycin susceptibility test by minimum inhibitory concentration 1 NRG Levofloxacin susceptibility test by minimum inhibitory concentration 4 NRG Rifampin susceptibility test by minimum inhibitory concentration <= NRG Cefazolin susceptibility test by minimum inhibitory concentration > NRG Linezolid susceptibility test by minimum inhibitory concentration 2 NRG Penicillin G susceptibility test by minimum inhibitory concentration > NRG Moxifloxacin susceptibility test by minimum inhibitory concentration S NRG Minocycline susc RUIZ <= NRG Encounters ACCT No. Visit Date/Time Discharge Status Pt. Type Provider Facility Loc./Unit Complaint [id number] 12/13/2014 13:18:00 12/13/2014 23:59:59 CLS Outpatient SANKET NEGRO ELVIN Gallardo [id number] 12/02/2014 13:53:00 12/02/2014 23:59:59 CLS Outpatient EDSON JIMÉNEZ DIPTI Melissa [id number] 12/02/2014 13:32:00 12/02/2014 23:59:59 CLS Outpatient ERIKA HERCULES APRN [id number] 09/08/2014 10:50:00 09/08/2014 23:59:59 CLS Outpatient FLORENCE BRENNAN APRN [id number] 05/21/2014 09:02:00 05/21/2014 23:59:59 CLS Outpatient REIKA HERCULES APRN [id number] 05/21/2014 09:02:00 05/21/2014 23:59:59 CLS Outpatient ERIKA HERCULES APRN [id number] 01/26/2014 14:07:00 01/26/2014 23:59:59 CLS Outpatient ERIKA HERCULES APRN [id number] 01/26/2014 14:07:00 01/26/2014 23:59:59 CLS Outpatient MIRIAM VILLANUEVA MD [id number] 09/21/2013 16:59:00 09/21/2013 23:59:59 CLS Outpatient MERY SUMMERS DO [id number] 08/19/2013 15:00:00 08/19/2013 23:59:59 CLS Outpatient PEARL PATEL APRN [id number] 03/02/2013 16:12:00 03/02/2013 23:59:59 CLS Outpatient PEARL PATEL APRN [id number] 12/09/2012 14:56:00 12/09/2012 23:59:59 CLS Outpatient PEARL PATEL APRN [id number] 10/23/2012 11:30:00 10/23/2012 23:59:59 CLS Outpatient PEARL PATEL APRN [id number] 09/17/2012 13:25:00 09/17/2012 23:59:59 CLS Outpatient FILIPE CUETO MD [id number] 09/15/2012 16:12:00 09/15/2012 23:59:59 CLS Outpatient [id number] 09/05/2012 11:37:00 09/05/2012 23:59:59 CLS Outpatient [id number] 08/26/2012 15:42:00 08/26/2012 23:59:59 CLS Outpatient KELYJARRET TOMLAZARA [id number] 06/05/2012 09:00:00 06/05/2012 23:59:59 [place] [id number] 06/05/2012 09:00:00 06/05/2012 23:59:59 CLS Outpatient MIRIAM VILLANUEVA MD [id number] 02/23/2013 14:05:00 Document Registration [id number] 01/08/2013 14:00:00 Document Registration [id number] 12/22/2012 10:08:00 Document Registration [id number] 04/15/2018 16:40:00 04/15/2018 23:59:59 CLS Outpatient NESSASILVINA [facility] [id number] 06/07/2018 10:09:00 06/07/2018 11:04:00 DIS Outpatient EVE ANDREWS, PILI Garcia [facility] ER R HAND SWELLING [id number] 07/09/2016 18:24:00 07/09/2016 20:30:00 DIS Emergency NICHOLE CLANCY APRN [facility] ER DENTAL ABSCESS/SWELLING [id number] 07/08/2016 10:30:00 07/08/2016 11:05:00 DIS Outpatient DEMETRIO ANDREWS, BOB Parra [facility] ER POSS INFECTED TOOTH ON R SIDE [id number] 08/28/2015 20:40:00 08/30/2015 11:50:00 DIS Inpatient MIRIAM VILLANUEVA MD [facility] [address] [id number] 08/27/2015 10:00:00 08/27/2015 14:47:00 DIS Emergency BOB ATKINSON MD [facility] ER [id number] 09/21/2014 12:49:00 09/21/2014 23:59:59 CLS Preadmit FLORENCE BRENNAN JAMEE [facility] REHAB [id number] 07/26/2014 11:34:00 07/26/2014 13:36:00 DIS Outpatient DESIRE JOHNSTON MD [facility] [facility] [id number] 05/06/2014 13:41:00 05/06/2014 15:01:00 DIS Emergency NICHOLE CLANCY APRN [facility] ER [id number] 11/04/2013 15:11:00 11/04/2013 23:59:59 CLS Outpatient CAM XIE MD [facility] RAD [id number] 11/01/2013 17:22:00 11/01/2013 19:37:00 DIS Emergency CAM XIE MD [facility] ER [id number] 04/12/2013 12:30:00 04/12/2013 23:59:59 CLS Outpatient EUNICE NATALIE MADRIDP [facility] QUICK [id number] 01/27/2013 08:00:00 02/11/2013 08:51:00 DIS Outpatient DIMAS KHAN MD [facility] REHAB [id number] 01/14/2013 14:50:00 01/14/2013 23:59:59 CLS Outpatient DMIAS KHAN MD [facility] ORTHO [id number] 09/16/2015 11:52:00 Document Registration [id number] 09/16/2015 11:52:00 Document Registration [id number] 09/16/2015 11:52:00 Document Registration [id number] 09/16/2015 11:52:00 Document Registration [id number] 11/28/2012 00:00:00 Document Registration [id number] 09/12/2012 12:30:00 Document Registration [id number] 08/29/2012 11:00:00 Document Registration [id number] 08/26/2012 20:58:00 Document Registration [id number] 08/17/2012 18:47:00 Document Registration [id number] 04/22/2012 04:25:00 Document Registration [id number] 09/11/2010 11:57:00 Document Registration
--- NOTE | 2019-01-14 16:41 | ED Upper Extremity ---
General Stated Complaint: L FINGER LAC Source: patient Exam Limitations: no limitations History of Present Illness Date Seen by Provider: January 14, 2019 Time Seen by Provider: 16:24 Initial Comments Patient presents to ER with family with chief complaint that she had lacerated her right index finger on the lateral portion of the first and second phalanges while using a knife as a screwdriver. This happened just prior to arrival. She had a tetanus shot within the last couple years. She has not taken anything for pain yet. Allergies and Home Medications Allergies Uncoded Allergies: pain pills (Adverse Reaction, Unknown, 04/22/12) makes her nauseas Home Medications Amoxicillin 500 Mg Capsule, 500 MG PO TID Prescribed by: BOB ATKINSON on 07/08/16 1102 Hydrocodone Bit/Acetaminophen 1 Each Tablet, 1-2 EACH PO Q6H PRN for PAIN Prescribed by: BOB ATKINSON on 07/08/16 1102 Promethazine HCl 25 Mg Tablet, 25 MG PO Q8H PRN for NAUSEA/VOMITING Prescribed by: BOB ATKINSON on 07/08/16 1102 Sulfamethoxazole/Trimethoprim 1 Each Tablet, 1 EACH PO TID Prescribed by: PILI HODGE on 06/07/18 1044 Patient Home Medication List Home Medication List Reviewed: Yes Review of Systems Constitutional: No chills, No fever EENTM: No hearing loss, No ear pain Respiratory: No cough, No short of breath Cardiovascular: No chest pain, No edema Gastrointestinal: No abdominal pain, No constipation, No diarrhea Genitourinary: No discharge, No dysuria Past Ddkuohy-Riugqr-Fxkybl Hx Patient Social History Alcohol Use: Denies Use Recreational Drug Use: No Smoking Status: Current Everyday Smoker Type Used: Cigarettes (1 ppd) 2nd Hand Smoke Exposure: Yes Recent Foreign Travel: No Contact w/Someone Who Travel: No Recent Hopitalizations: No Immunizations Up To Date Tetanus Booster (TDap): Unknown Seasonal Allergies Seasonal Allergies: No Past Medical History Surgeries: Yes Lumpectomy, Tubal Ligation Respiratory: Yes Asthma Currently Using CPAP: No Currently Using BIPAP: No Cardiac: No Neurological: No 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 Disorders: No Female 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 Disorders: Denies 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 7.0oz. 58.818671gu; BMI Method:Stated General Appearance: WD/WN, no apparent distress HEENT: PERRL/EOMI, pharynx normal Cardiovascular: normal peripheral pulses, regular rate, rhythm, no edema Respiratory: no respiratory distress, no accessory muscle use Hand: Right (index finger lateral side V-shaped linear laceration into the cutaneous tissue.) Procedures/Interventions Wound Location: Upper Extremities Other Wound Location Right index finger lateral side Wound Length (cm): 2 Wound's Depth, Shape: flap (V-shaped), sub Q Wound Explored: no foreign body removed Irrigated w/ Saline (ccs): 200 Betadine Prep?: Yes Anesthesia: 1% Lidocaine Wound Debrided: minimal Suture: Ethlion Suture Size: 4-0 Number of Sutures: 7 Layer Closure?: 1 Sterile Dressing Applied?: Yes Progress Wound was cleaned thoroughly using chlorhexidine soap water and soap. The finger was then infiltrated with a a digital block in the usual fashion. Once the patient was ascertained to be numb we applied a turnicot and spent less than 5 minutes getting 7 simple interrupted stitches using 4-0 nylon. We removed the turnicot the wound was hemostatic and the patient tolerated procedure well. The wound was explored prior to placing sutures and no foreign debris was seen. Progress/Results/Core Measures Results/Orders My Orders Orders - JOZEF BUTCHER Lidocaine 1% Inj 20 Ml (Xylocaine 1% Inj (01/14/19 16:45) Departure Impression Primary Impression: Laceration of finger of right hand Qualified Codes: S61.210A - Laceration without foreign body of right index finger without damage to nail, initial encounter Disposition: 01 HOME, SELF-CARE Condition: Stable Departure-Patient Inst. Decision time for Depature: 17:00 Referrals: [facility] (PCP/Family) Primary Care Physician Patient Instructions: Laceration Repair With Stitches (DC) Add. Discharge Instructions: Return to the ER and have the sutures out in 10-14 days or you may follow-up with your primary care provider to have this done. If you pull a suture out prematurely and it bleeds apply direct pressure and raise the finger above the level of your head or 40 minutes. If you can't get it stopped bleeding then you may return to the ER. Wash the hand with soap and water at least daily and change the dressing as often as necessary. Do not use your hand for the next 4-5 days as this will cause swelling and increase your likelihood of bleeding. Apply a small dollop of Vaseline or triple antibiotic ointment over the wound and then place a dressing around to keep it clean. Obtain the antibiotics and take one tablet twice a day for the next 5 days. Do not submerse your hand under water to wash dishes may or other reasons until the sutures are out. It's okay to shower and wash your hands under a sink however. If your finger becomes very swollen and red or has discharge from the wound then you should have it reexamined the same day by a physician. Tylenol and/or Motrin as necessary for pain. If this does not control your pain you may use one tablet of tramadol every 6 hours for breakthrough pain. Scripts Sulfamethoxazole/Trimethoprim (Bactrim Ds Tablet) 1 Each Tablet 1 EACH PO BID for 5 Days, #10 TAB 0 Refills Prov: JOZEF BUTCHER 01/14/19 Tramadol HCl (Tramadol HCl) 50 Mg Tablet 50 MG PO Q6H PRN for PAIN for 3 Days, #12 TAB 0 Refills Prov: JOZEF BUTCHER 01/14/19 JOZEF BUTCHER January 14, 2019 16:41
[2019-01-14] MEDS ORDERED: LIDOCAINE 1% INJ 20 ML 20 ML VIAL INJ ONE (16:45)
[2019-01-14] MEDS ORDERED: SULF1TAB35 PO (17:03)
[2019-01-14] MEDS ORDERED: TRAM50TA2 PO (17:03)
[2019-01-14 17:18] VITALS: BP 130/90
== END 2019-01-14 17:18 | disposition home or self-care (01) ==
LOC: EDUNIT# 16:22 → ER 16:24
DX: S61.211A Laceration without foreign body of left index finger without damage to nail, initial encounter (principal); J45.909 Unspecified asthma, uncomplicated; B19.20 Unspecified viral hepatitis C without hepatic coma; Z87.448 Personal history of other diseases of urinary system; Z87.440 Personal history of urinary (tract) infections; Z88.8 Allergy status to other drugs, medicaments and biological substances; Z98.51 Tubal ligation status; W26.0XXA Contact with knife, initial encounter
CPT/HCPCS: 12041; 64450

== ENCOUNTER 2021-03-16 21:12 | Emergency (ER) | payer SELFPAY ==
[~2021-03-16] VITALS: Ht 163 cm; Wt 63.0 kg
[~2021-03-16 21:12] MED LIST changes: -CIPR500T4 PO; +CIPR500T5 PO; +TRM50T PO
[2021-03-16] MEDS ORDERED: RX-ONDANSETRON 4 MG ODT (ZOFRAN) PPK #4 PO STA (21:35)
[2021-03-16] MEDS ORDERED: ONDA4TAB11 PO (21:43)
--- NOTE | 2021-03-16 21:43 | ED Cough/URI ---
General Chief Complaint: Fever-Adult/Adol Stated Complaint: FEVER, BODY ACHES Nursing Triage Note: FEVER, BODYACHE X1 DAY, TESTED COVID + 03/14/21 Source: patient Exam Limitations: no limitations History of Present Illness Date Seen by Provider: Mar 16, 2021 Time Seen by Provider: 21:27 Initial Comments Patient ER by private conveyance from home with chief complaint of 1 day cough, body aches backache malaise fever 101 and recent exposure to her who was diagnosed 2 to 3 days ago with COVID-19. She has not had vaccination. She has not been tested yet. She does not have asthma or COPD but she does smoke about half pack cigarettes per day. Allergies and Home Medications Allergies Uncoded Allergies: pain pills (Adverse Reaction, Unknown, 04/22/12) makes her nauseas Home Medications Ondansetron 4 Mg Tab.rapdis, 4 MG PO Q6H PRN for NAUSEA/VOMITING Prescribed by: JOZEF BUTCHER on 03/16/21 2143 Tramadol HCl 50 Mg Tablet, 50 MG PO Q6H PRN for PAIN Prescribed by: JOZEF BUTCHER on 01/14/19 1703 Patient Home Medication List Home Medication List Reviewed: Yes Review of Systems Review of Systems Constitutional: No chills, No diaphoresis EENTM: No ear discharge, No ear pain Respiratory: cough; No phlegm, No short of breath Cardiovascular: No chest pain, No palpitations Gastrointestinal: No abdominal pain, No melena; nausea; No vomiting Genitourinary: No discharge, No dysuria All Other Systems Reviewed Negative Unless Noted: Yes Past Cxyhrbk-Npbqkf-Tffqtv Hx Patient Social History Tobacco Use?: Yes Tobacco type used: Cigars Smoking Status: Current Everyday Smoker Use of E-Cig and/or Vaping dev: No Substance use?: No Alcohol Use?: No Pt feels they are or have been: No Immunizations Up To Date Tetanus Booster (TDap): Unknown Seasonal Allergies Seasonal Allergies: No Past Medical History Surgeries: Yes Lumpectomy, Tubal Ligation Respiratory: Yes Asthma Currently Using CPAP: No Currently Using BIPAP: No Cardiac: No Neurological: Yes (SPINAL INJURY) 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 Disorders: No Female 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 Disorders: 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 Sexually Transmitted Disease: No HIV/AIDS: No Genitourinary: Yes Kidney Infection, Bladder Infection, Kidney Stones, UTI-Chronic Gastrointestinal: Yes Hepatitis Musculoskeletal: Yes Chronic Back Pain Endocrine: No HEENT: No Cancer: No Psychosocial: Yes Sleep Difficulties Integumentary: No Blood Disorders: Yes (HEP C+) Adverse Reaction/Blood Tranf: No Family Medical History No Pertinent Family Hx Physical Exam Vital Signs - First Documented 03/16/21 21:24 Temp 37.0 Pulse 88 Resp 18 B/P (MAP) 160/93 (115) Pulse Ox 99 O2 Delivery Room Air Capillary Refill : Less Than 3 Seconds Height: 5'4.00" Weight: 135lbs. 7.0oz. 61.674978nm; 23.00 BMI Method:Stated General Appearance: WD/WN, mild distress Eyes: Bilateral Eye Normal Inspection, Bilateral Eye PERRL, Bilateral Eye EOMI HEENT: PERRL/EOMI, normal ENT inspection, pharynx normal (Moist oral mucosa), TM abnormal (R) (Minor injection) Neck: full range of motion, normal inspection Respiratory: lungs clear, normal breath sounds, no respiratory distress, no accessory muscle use Cardiovascular: normal peripheral pulses, regular rate, rhythm, no edema Gastrointestinal: non tender, soft Neurologic/Psychiatric: alert, normal mood/affect, oriented x 3 Skin: normal color, warm/dry Procedures/Interventions Suture Size: 4-0 Progress/Results/Core Measures Suspected Sepsis SIRS Temperature: Pulse: 88 Respiratory Rate: 18 Blood Pressure 160 /93 Mean: 115 Results/Orders Lab Results Laboratory Tests Test 03/16/21 21:35 Range/Units Influenza Type A (RT-PCR) Not Detected Not Detecte Influenza Type B (RT-PCR) Not Detected Not Detecte SARS-CoV-2 RNA (RT-PCR) Detected H Not Detecte My Orders Orders - JOZEF BUTCHER Ketorolac Injection (Toradol Injection) (03/16/21 21:45) Rx-Ondansetron Po (Rx-Zofran Po) (03/16/21 21:35) Covid 19 Inhouse Test (03/16/21 21:35) Influenza A And B By Pcr (03/16/21 21:35) Medications Given in ED Current Medications Medications Dose Ordered Sig/Lloyd Route Start Time Stop Time Status Last Admin Dose Admin Ketorolac Tromethamine 60 mg ONCE ONCE IM 03/16/21 21:45 03/16/21 21:46 DC 03/16/21 21:40 60 MG Vital Signs/I&O 03/16/21 21:24 Temp 37.0 Pulse 88 Resp 18 B/P (MAP) 160/93 (115) Pulse Ox 99 O2 Delivery Room Air Capillary Refill : Less Than 3 Seconds Blood Pressure Mean: 115 Progress Note : Time: 21:39 Progress Note We will get a COVID-19 swab however she is presumed positive at this time. We have discussed self-isolation and family quarantine. Toradol and Zofran for her symptoms. Her vital signs are perfectly normal and her examination is normal. Return precautions were discussed. Departure Impression Primary Impression: COVID-19 Disposition: HOME, SELF-CARE Condition: Stable Departure-Patient Inst. Decision time for Depature: 22:25 Referrals: [facility]/ (PCP/Family) Primary Care Physician Patient Instructions: COVID-19 (DC) Add. Discharge Instructions: Drink plenty of fluids. Tylenol 1000 mg every 8 hours as necessary for body aches or fever. Naproxen 1 or 2 tablets twice a day for body aches and/or fever. Zofran on the tongue 1 tablet every 6 hours as necessary for nausea. Return to the ER if you are having difficulty breathing with oxygen saturations consistently below 90% while at rest, intractable vomiting leading to dehydration or other worrisome symptoms. All discharge instructions reviewed with patient and/or family. Voiced understanding. Scripts Ondansetron (Ondansetron Odt) 4 Mg Tab.rapdis 4 MG PO Q6H PRN for NAUSEA/VOMITING, #15 TAB 0 Refills Prov: JOZEF BUTCHER 03/16/21 Work/School Note: Work Release Form Date Seen in the Emergency Department: Mar 16, 2021 Return to Work: Mar 25, 2021 Restrictions: Return-No Fever (24hrs) Other Restrictions Listed Below: Off isolation 03/25/21 and fever free for 24 hours. JOZEF BUTCHER Mar 16, 2021 21:42
[2021-03-16] MEDS ORDERED: KETOROLAC 60 MG/2 ML VIAL IM ONE (21:45)
[2021-03-16 22:30] VITALS: BP 120/79
== END 2021-03-16 22:30 | disposition home or self-care (01) ==
LOC: EDUNIT# 21:12 → ER 21:14
DX: U07.1 COVID-19 (principal); F17.290 Nicotine dependence, other tobacco product, uncomplicated; F17.210 Nicotine dependence, cigarettes, uncomplicated
CPT/HCPCS: 87636; 99284

== ENCOUNTER 2021-07-13 20:27 | Emergency (ER) | payer SELFPAY ==
[~2021-07-13] VITALS: Ht 64 cm; Wt 68.0 kg
[~2021-07-13 20:27] MED LIST changes: +ONDA4TAB11 PO; -SULF1TAB35 PO
[2021-07-13] MEDS ORDERED: IBUPROFEN 800 MG (MOTRIN) TAB PO ONE (20:45)
[2021-07-13] MEDS ORDERED: ACHD5005 PO (20:50)
--- NOTE | 2021-07-13 20:50 | ED Lower Extremity ---
General Chief Complaint: Trauma-Non Activation Stated Complaint: BURN ON R FOOT Source: patient Exam Limitations: no limitations (NICHOLE CLANCY APRN) History of Present Illness Date Seen by Provider: Jul 13, 2021 Time Seen by Provider: 20:45 Initial Comments To ER with right foot. Making spaghetti for dinner this evening when she dropped the hsu of hot water on her foot. Tetanus is up-to-date within the last 5 years. Onset: just prior to arrival Severity: moderate Pain/Injury Location: right foot Method of Injury: direct blow Modifying Factors: Worse With Movement (NICHOLE CLANCY APRN) Allergies and Home Medications Allergies Uncoded Allergies: pain pills (Adverse Reaction, Unknown, 04/22/12) makes her nauseas Patient Home Medication List Home Medication List Reviewed: Yes (NICHOLE CLANCY APRN) Hydrocodone/Acetaminophen (Hydrocodone-Acetamin 5-325 mg) 1 Each Tablet, 1 TAB PO Q4H PRN for PAIN-MODERATE (5-7) Prescribed by: NICHOLE CLANCY on 07/13/212049 Ondansetron (Ondansetron Odt) 4 Mg Tab.rapdis, 4 MG PO Q6H PRN for NAUSEA/VOMITING Prescribed by: JOEZF BUTCHER on 03/16/212142 Tramadol HCl (Tramadol HCl) 50 Mg Tablet, 50 MG PO Q6H PRN for PAIN Prescribed by: JOZEF BUTCHER on 01/14/19 1703 Review of Systems Constitutional: see HPI EENTM: see HPI Respiratory: no symptoms reported Cardiovascular: no symptoms reported Genitourinary: no symptoms reported Musculoskeletal: see HPI Skin: see HPI Psychiatric/Neurological: No Symptoms Reported (NICHOLE CLANCY APRN) Past Khnaybq-Oxuqea-Zbokse Hx Patient Social History Tobacco Use?: Yes Tobacco type used: Cigarettes Smoking Status: Current Everyday Smoker Use of E-Cig and/or Vaping dev: No Substance use?: No Alcohol Use?: No Pt feels they are or have been: No (NICHOLE CLANCY APRN) Immunizations Up To Date Tetanus Booster (TDap): Unknown (NICHOLE CLANCY APRN) Seasonal Allergies Seasonal Allergies: No (NICHOLE CLANCY APRN) Past Medical History Surgeries: Yes Lumpectomy, Tubal Ligation Respiratory: Yes Asthma Currently Using CPAP: No Currently Using BIPAP: No Cardiac: No Neurological: Yes (SPINAL INJURY) 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 Disorders: No Female 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 Disorders: 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 Sexually Transmitted Disease: No HIV/AIDS: No Genitourinary: Yes Kidney Infection, Bladder Infection, Kidney Stones, UTI-Chronic Gastrointestinal: Yes Hepatitis Musculoskeletal: Yes Chronic Back Pain Endocrine: No HEENT: No Cancer: No Psychosocial: Yes Sleep Difficulties Integumentary: No Blood Disorders: Yes (HEP C+) Adverse Reaction/Blood Tranf: No (NICHOLE CLANCY APRN) Family Medical History No Pertinent Family Hx (NICHOLE CLANCY APRN) Physical Exam Vital Signs Vital Signs - First Documented 07/13/21 20:44 Temp 36.6 Pulse 77 Resp 20 B/P (MAP) 103/85 (91) Pulse Ox 100 O2 Delivery Room Air (DAGOBERTO CHAVEZ MD) Vital Signs Capillary Refill : (NICHOLE CLANCY APRN) Height, Weight, BMI Height: 5'4.00" Weight: 135lbs. 7.0oz. 61.190559hj; 23.00 BMI Method:Stated General Appearance: WD/WN, no apparent distress HEENT: PERRL/EOMI, normal ENT inspection Neck: non-tender, full range of motion Respiratory: no respiratory distress, no accessory muscle use Gastrointestinal: normal bowel sounds, non tender, soft Hips: bilateral hip non-tender, bilateral hip normal inspection, bilateral hip normal range of motion Legs: bilateral leg non-tender, bilateral leg normal inspection, bilateral leg normal range of motion Knees: bilateral knee non-tender, bilateral knee normal inspection, bilateral knee normal range of motion Ankles: left ankle non-tender, left ankle normal inspection, left ankle normal range of motion; right ankle other (There is blanching erythema poorly defined borders consistent with a splash of hot water as described. She has 2 or 3 bulla to the most superior aspect of this erythema about the ankle.) Neurologic/Psychiatric: alert, normal mood/affect, oriented x 3 Skin: normal color, warm/dry (NICHOLE CLANCY APRN) Procedures/Interventions Suture Size: 4-0 (NICHOLE CLANCY APRN) Progress/Results/Core Measures Results/Orders Medications Given in ED Current Medications Medications Dose Ordered Sig/Lloyd Route Start Time Stop Time Status Last Admin Dose Admin Acetaminophen/ Hydrocodone Bitart 1 ea Q4H PRN PO 07/13/21 20:45 07/13/21 20:53 1 EA Ibuprofen 800 mg ONCE ONCE PO 07/13/21 20:45 07/13/21 20:46 DC 07/13/21 20:53 800 MG (DAGOBERTO CHAVEZ MD) Vital Signs/I&O 07/13/21 20:44 Temp 36.6 Pulse 77 Resp 20 B/P (MAP) 103/85 (91) Pulse Ox 100 O2 Delivery Room Air (DAGOBERTO CHAVEZ MD) Departure Impression Primary Impression: Burn of foot, right, second degree Disposition: HOME, SELF-CARE Condition: Stable Departure-Patient Inst. Decision time for Depature: 20:48 (NICHOLE CLANCY APRN) Referrals: [facility] [place] ([place]/Family) Primary Care Physician Patient Instructions: Skin Varner (DC) Add. Discharge Instructions: 1. Follow-up with your doctor next week. You can shower letting water run over this starting this evening or tomorrow. Apply the antibiotic ointment to the areas and try to keep this covered as much as possible. Use the antibiotic ointment for about 5 days. Take ibuprofen in addition to the prescribed pain medication. All discharge instructions reviewed with patient and/or family. Voiced understanding. Scripts Hydrocodone/Acetaminophen (Hydrocodone-Acetamin 5-325 mg) 1 Each Tablet 1 TAB PO Q4H PRN for PAIN-MODERATE (5-7), #14 TAB Prov: NICHOLE CLANCY APRN 07/13/21 Work/School Note: Work Release Form Date Seen in the Emergency Department: Jul 13, 2021 Return to Work: Jul 17, 2021 NICHOLE CLANCY APRN Jul 13, 2021 20:50 DAGOBERTO CHAVEZ MD Jul 13, 2021 21:16
[2021-07-13] MEDS ORDERED: BACITRACIN OINTMENT 28 GM TUBE TOP SCH (21:00)
[2021-07-13 21:28] VITALS: BP 103/85
== END 2021-07-13 21:29 | disposition home or self-care (01) ==
LOC: EDUNIT# 20:27 → ER 20:29
DX: T25.221A Burn of second degree of right foot, initial encounter (principal); J45.909 Unspecified asthma, uncomplicated; G89.29 Other chronic pain; M54.9 Dorsalgia, unspecified; F17.210 Nicotine dependence, cigarettes, uncomplicated
CPT/HCPCS: 99283

== ENCOUNTER 2022-08-28 13:15 | Emergency (ER) | payer MEDICAID ==
[~2022-08-28] VITALS: Ht 162.5 cm; Wt 68.0 kg
[2022-08-28 13:25] VITALS: BP 148/88
[2022-08-28] MEDS ORDERED: ACETAMINOPHEN 325 MG TABLET PO STA (13:33)
--- NOTE | 2022-08-28 13:33 | ED Integumentary General ---
General Chief Complaint: Skin/Wound Problems Stated Complaint: SPIDER BITE Nursing Triage Note: PT AMB TO FT1 WITH COMPLAINT OF SPIDER BITE ON RIGHT HAND. STATES STARTED FOR DAYS AGO. PT IS CURRENTLY TAKING BACTRIM. History of Present Illness Date Seen by Provider: Aug 28, 2022 Time Seen by Provider: 13:20 Initial Comments 47 year old female presents with abscess to right hand. Patient reports being evaluated at [facility] walk in 4 days ago, was told it is a spider bite and started on Bactrim, she is taking it twice daily. Patient reports symptoms worsening and increased pain. Patient had MRSA in axilla a few months ago. Patient unsure of her last Tetanus vaccine, but refuses to have it today. Will obtain in the next day or two. Timing/Duration: getting worse Severity: moderate Location: hands (right, dorsum) Possible Cause: no cause identified Associated Symptoms: change in skin texture Allergies and Home Medications Allergies Coded Allergies: morphine (Verified Allergy, Unknown, 08/28/22) Uncoded Allergies: pain pills (Adverse Reaction, Unknown, 04/22/12) makes her nauseas Patient Home Medication List Home Medication List Reviewed: Yes Doxycycline Hyclate (Doxycycline Hyclate) 100 Mg Tablet, 100 MG PO BID Prescribed by: AKBAR JARQUIN on 08/28/22 1410 Hydrocodone/Acetaminophen (Hydrocodone-Acetamin 5-325 mg) 1 Each Tablet, 1 TAB PO Q4H PRN for PAIN-MODERATE (5-7) Prescribed by: NICHOLE CLANCY on 07/13/212049 Mupirocin (Mupirocin) 2 % Oint...g., 1 EACH TP TID Prescribed by: AKBAR JARQUIN on 08/28/22 1410 Ondansetron (Ondansetron Odt) 4 Mg Tab.rapdis, 4 MG PO Q6H PRN for NAUSEA/VOMITING Prescribed by: JOZEF BUTCHER on 03/16/212142 Tramadol HCl (Tramadol HCl) 50 Mg Tablet, 50 MG PO Q6H PRN for PAIN Prescribed by: JOZEF BUTCHER on 01/14/19 1703 Review of Systems Review of Systems Constitutional: no symptoms reported, see HPI Skin: see HPI, change in color, other (Abscess right hand) All Other Systems Reviewed Negative Unless Noted: Yes Past Scctjoc-Eexsmk-Uhiumf Hx Patient Social History Tobacco Use?: Yes Tobacco type used: Cigarettes Smoking Status: Current Everyday Smoker Use of E-Cig and/or Vaping dev: No Substance use?: No Alcohol Use?: No Pt feels they are or have been: No Immunizations Up To Date Tetanus Booster (TDap): Unknown Seasonal Allergies Seasonal Allergies: No Past Medical History Surgeries: Yes Lumpectomy, Tubal Ligation Respiratory: Yes Asthma Currently Using CPAP: No Currently Using BIPAP: No Cardiac: No Neurological: Yes (SPINAL INJURY) 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 Disorders: No 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 Sexually Transmitted Disease: No HIV/AIDS: No Genitourinary: Yes Kidney Infection, Bladder Infection, Kidney Stones, UTI-Chronic Gastrointestinal: Yes Hepatitis Musculoskeletal: Yes Chronic Back Pain Endocrine: No HEENT: No Cancer: No Psychosocial: Yes Sleep Difficulties Integumentary: No Blood Disorders: Yes (HEP C+) Adverse Reaction/Blood Tranf: No Family Medical History Reviewed Nursing Family Hx No Pertinent Family Hx Physical Exam Vital Signs Vital Signs - First Documented 08/28/22 13:25 Temp 36.5 Pulse 83 Resp 16 B/P (MAP) 148/88 (108) Pulse Ox 100 O2 Delivery Room Air Capillary Refill : Less Than 3 Seconds General Appearance: WD/WN, no apparent distress Cardiovascular: normal peripheral pulses, regular rate, rhythm Respiratory: chest non-tender, lungs clear, normal breath sounds Extremities: normal range of motion Neurologic/Psychiatric: no motor/sensory deficits, alert, normal mood/affect, oriented x 3 Skin: normal color, warm/dry Skin Problem Location: upper extremities (right hand, dorsum) Skin Problem Character: abscess (Marked erythema, trace warmth, fluctuant), tenderness Lymphatic: no adenopathy Procedures/Interventions I&D : Site: right hand Blade Size: 11 I & D Procedure: betadine prep Progress Skin prep with Betadine, 3 mL of 1% lidocaine used to infiltrate the skin around the right hand abscess. 11 blade used to open wound, purulent discharge expressed. Culture obtained. Wound irrigated with 500 mL of sterile saline. Bulky sterile dressing applied. Suture Size: 4-0 Progress/Results/Core Measures Results/Orders My Orders Orders - AKBAR JARQUIN Acetaminophen Tablet/Caplet (Tylenol T (08/28/22 13:33) Lidocaine 1% Inj 20 Ml (Xylocaine 1% Inj (08/28/22 13:45) Wound Culture (08/28/22 13:34) Medications Given in ED Current Medications Medications Dose Ordered Sig/Lloyd Route Start Time Stop Time Status Last Admin Dose Admin Lidocaine HCl 20 ml ONCE ONCE INJ 08/28/22 13:45 08/28/22 13:46 DC 08/28/22 13:42 20 ML Vital Signs/I&O 08/28/22 13:25 Temp 36.5 Pulse 83 Resp 16 B/P (MAP) 148/88 (108) Pulse Ox 100 O2 Delivery Room Air Blood Pressure Mean: 108 Departure Impression Primary Impression: Abscess Disposition: HOME, SELF-CARE Condition: Improved Departure-Patient Inst. Decision time for Depature: 13:50 Referrals: [facility] (PCP/Family) Primary Care Physician Patient Instructions: MRSA (DC), Wound Incision and Drainage (DC), Cellulitis (Skin Infection), Child (DC) Add. Discharge Instructions: Continue Bactrim and Add Doxycycline, until we call with culture results. Alternate Tylenol 650 mg and ibuprofen 600 mg every 4 hours for pain or fever. Apply antibiotic ointment every 6-8 hours and change dressing as needed. Clean area with soap and water and irrigate with peroxide 3 times daily. Follow-up with your primary care provider if symptoms or not improving or worsen. Obtain Tetanus Vaccine in the next 24-48 hours at [facility] or Health Dept. Return to the emergency department for new, urgent healthcare needs. All discharge instructions reviewed with patient and/or family. Voiced understanding. Scripts Mupirocin (Mupirocin) 2 % Oint...g. 1 EACH TP TID for 7 Days, #1 TUBE 0 Refills Prov: AKBAR JARQUIN 08/28/22 Doxycycline Hyclate (Doxycycline Hyclate) 100 Mg Tablet 100 MG PO BID, #20 TAB 0 Refills Prov: AKBAR JARQUIN 08/28/22 AKBAR JARQUIN Aug 28, 2022 13:33
[2022-08-28] MEDS ORDERED: LIDOCAINE 1% INJ 20 ML VIAL INJ ONE (13:45)
[2022-08-28] MEDS ORDERED: MUPI22OI2 TP (14:10)
[2022-08-28] MEDS ORDERED: DOXY100T2 PO (14:10)
== END 2022-08-28 14:22 | disposition home or self-care (01) ==
LOC: EDUNIT# 13:15 → ER 13:18
DX: L02.511 Cutaneous abscess of right hand (principal); F17.210 Nicotine dependence, cigarettes, uncomplicated
CPT/HCPCS: 10060; 87070; 87077; 87186; 87205

== ENCOUNTER 2022-10-17 13:11 | Emergency (ER) | payer MEDICAID ==
[~2022-10-17] VITALS: Ht 162.6 cm; Wt 72.6 kg
[~2022-10-17 13:11] MED LIST changes: +DOXY100T2 PO; +MUPI22OI2 TP
--- NOTE | 2022-10-17 13:44 | ED Headache ---
General Chief Complaint: Head/Cervical Problems Stated Complaint: HEAD ACHE | Nursing Triage Note: PT AMB TO ED BY POV WITH C/O R SIDED MINER X 3 DAYS. PT HAS NOT TAKEN ANYTHING FOR MINER TODAY. PT REPORTS LIGHT SENSITIVITY, DENIES VISION CHANGES. Source: patient Exam Limitations: no limitations History of Present Illness Date Seen by Provider: Oct 17, 2022 Time Seen by Provider: 13:30 Initial Comments Patient is a 47-year-old female who presents to the emergency department chief complaint of right temporal headache. She states it started 3 days ago, she believes on Saturday morning. She states it comes and goes and feels "sharp". She states closing her eyes seems to make it feel little bit better. She endorses a little bit of blurry vision. She states she is mildly nauseated. She has never had a headache like this before. She states normally she has a dull "normal" headaches. She denies any problems with speech or swallowing. No numbness weakness or tingling. She denies problems with balance and coordination. She has a slight cough but she states she is a smoker. She went to "urgent care" last night and they told her that they could not help her. She has been taking ibuprofen her last dose was yesterday evening. It has not helped. Patient states when she woke up this morning the headache was gone but as she was at work it started coming back. She states she has a history of hepatitis C. She is not on any daily medications. Denies drug use, daily alcohol use. No trauma. All other review of systems reviewed and negative except as stated Timing/Duration: other (3 days) Severity/Quality: severe, sharp ("8") Location: temporal (right) Prior Headaches/Recent Trauma: occasional headaches Modifying Factors: worse with exposure to light Associated Symptoms: nausea/vomiting (nausea without vomiting) Allergies and Home Medications Allergies Coded Allergies: morphine (Verified Allergy, Unknown, 08/28/22) Uncoded Allergies: pain pills (Adverse Reaction, Unknown, 04/22/12) makes her nauseas Patient Home Medication List Home Medication List Reviewed: Yes Doxycycline Hyclate (Doxycycline Hyclate) 100 Mg Tablet, 100 MG PO BID Prescribed by: AKBAR JARQUIN on 08/28/22 1410 Hydrocodone/Acetaminophen (Hydrocodone-Acetamin 5-325 mg) 1 Each Tablet, 1 TAB PO Q4H PRN for PAIN-MODERATE (5-7) Prescribed by: NICHOLE CLANCY on 07/13/212049 Mupirocin (Mupirocin) 2 % Oint...g., 1 EACH TP TID Prescribed by: AKBAR JARQUIN on 08/28/22 1410 Ondansetron (Ondansetron Odt) 4 Mg Tab.rapdis, 4 MG PO Q6H PRN for NAUSEA/VOMITING Prescribed by: JOZEF BUTCHER on 03/16/21 214 Tramadol HCl (Tramadol HCl) 50 Mg Tablet, 50 MG PO Q6H PRN for PAIN Prescribed by: JOZEF BUTCHER on 01/14/19 1703 Review of Systems Review of Systems Constitutional: see HPI Eyes: Blurred Vision (mild) Ears, Nose, Mouth, Throat: no symptoms reported Respiratory: cough (occasional) Cardiovascular: no symptoms reported Gastrointestinal: nausea Genitourinary: no symptoms reported Musculoskeletal: no symptoms reported Skin: no symptoms reported Psychiatric/Neurological: Headache All Other Systems Reviewed Negative Unless Noted: Yes Past Htldgrz-Tamtdv-Skqqci Hx Patient Social History Tobacco Use?: Yes Tobacco type used: Cigarettes Smoking Status: Current Everyday Smoker Use of E-Cig and/or Vaping dev: No Substance use?: No Alcohol Use?: No Pt feels they are or have been: No Immunizations Up To Date Tetanus Booster (TDap): Unknown Influenza Vaccine Up-to-Date: No; Not Current Seasonal Allergies Seasonal Allergies: No Past Medical History Surgery/Hospitalization HX: HEP C Surgeries: Yes Lumpectomy, Tubal Ligation Respiratory: Yes Asthma Currently Using CPAP: No Currently Using BIPAP: No Cardiac: No Neurological: Yes (SPINAL INJURY) 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 Disorders: No 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 Sexually Transmitted Disease: No HIV/AIDS: No Genitourinary: Yes Kidney Infection, Bladder Infection, Kidney Stones, UTI-Chronic Gastrointestinal: Yes Hepatitis Musculoskeletal: Yes Chronic Back Pain Endocrine: No HEENT: No Cancer: No Psychosocial: Yes Sleep Difficulties Integumentary: No Blood Disorders: Yes (HEP C+) Adverse Reaction/Blood Tranf: No Family Medical History No Pertinent Family Hx Physical Exam Vital Signs Vital Signs - First Documented 10/17/22 13:20 Temp 36.8 Pulse 79 Resp 18 B/P (MAP) 149/84 (105) Pulse Ox 98 O2 Delivery Room Air Capillary Refill : Less Than 3 Seconds Height, Weight, BMI Height: 5'4.00" Weight: 135lbs. 7.0oz. [id number]; 27.00 BMI Method:Stated General Appearance: WD/WN, no apparent distress HEENT: PERRL/EOMI, TMs normal, pharynx normal Neck: full range of motion, supple, normal inspection Cardiovascular: regular rate, rhythm, no murmur Respiratory: lungs clear, normal breath sounds, no respiratory distress, no accessory muscle use Gastrointestinal: normal bowel sounds, non tender, soft Extremities: normal range of motion, normal inspection, normal capillary refill, other (clubbing of fingertips boted bilaterally) Psychiatric: alert, oriented x 3 Crainal Nerves: normal hearing, normal speech, PERRL; No abnormal eye position, No abnormal pupil position, No abnormal speech, No facial asymmetry, No facial droop, No facial paresthesias, No facial weakness, No gaze palsy, No hearing deficit (R), No hearing deficit (L), No tongue deviation to R, No tongue deviation to L Coordination/Gait: normal finger to nose, negative Romberg's sign Motor/Sensory: no motor deficit, no sensory deficit, no pronator drift, other (normal finger to nose; normal heel to rucker) Skin: normal color, warm/dry Procedures/Interventions Suture Size: 4-0 Progress/Results/Core Measures Results/Orders Lab Results Laboratory Tests Test 10/17/22 14:27 Range/Units White Blood Count 6.7 4.3-11.0 10^3/uL Red Blood Count 4.86 3.80-5.11 10^6/uL Hemoglobin 15.1 11.5-16.0 g/dL Hematocrit 44 35-52 % Mean Corpuscular Volume 90 80-99 fL Mean Corpuscular Hemoglobin 31 25-34 pg Mean Corpuscular Hemoglobin Concent 34 32-36 g/dL Red Cell Distribution Width 12.4 10.0-14.5 % Platelet Count 238 130-400 10^3/uL Mean Platelet Volume 9.6 9.0-12.2 fL Immature Granulocyte % (Auto) 0 % Neutrophils (%) (Auto) 42 42-75 % Lymphocytes (%) (Auto) 49 H 12-44 % Monocytes (%) (Auto) 7 0-12 % Eosinophils (%) (Auto) 2 0-10 % Basophils (%) (Auto) 0 0-10 % Neutrophils # (Auto) 2.8 1.8-7.8 10^3/uL Lymphocytes # (Auto) 3.3 1.0-4.0 10^3/uL Monocytes # (Auto) 0.4 0.0-1.0 10^3/uL Eosinophils # (Auto) 0.1 0.0-0.3 10^3/uL Basophils # (Auto) 0.0 0.0-0.1 10^3/uL Immature Granulocyte # (Auto) 0.0 0.0-0.1 10^3/uL Erythrocyte Sedimentation Rate 5 0-20 MM/HR Sodium Level 140 135-145 MMOL/L Potassium Level 4.0 3.6-5.0 MMOL/L Chloride Level 108 H 98-107 MMOL/L Carbon Dioxide Level 25 21-32 MMOL/L Anion Gap 7 5-14 MMOL/L Blood Urea Nitrogen 13 7-18 MG/DL Creatinine 0.71 0.60-1.30 MG/DL Estimat Glomerular Filtration Rate 105 BUN/Creatinine Ratio 18 Glucose Level 85 70-105 MG/DL Calcium Level 9.5 8.5-10.1 MG/DL My Orders Orders - DAGOBERTO CHAVEZ MD Ed Iv/Invasive Line Start (10/17/22 13:38) Cbc With Automated Diff (10/17/22 13:38) Basic Metabolic Panel (10/17/22 13:38) Erythrocyte Sedimentation Rate (10/17/22 13:38) Metoclopramide Injection (Reglan Injecti (10/17/22 13:45) Diphenhydramine Injection (Benadryl Inje (10/17/22 13:45) Ketorolac Injection (Toradol Injection) (10/17/22 13:45) Promethazine Tablet (Phenergan Tablet) (10/17/22 14:30) Naproxen Tablet (Naprosyn Tablet) (10/17/22 14:30) Medications Given in ED Current Medications Medications Dose Ordered Sig/Lloyd Route Start Time Stop Time Status Last Admin Dose Admin Naproxen 500 mg ONCE ONCE PO 10/17/22 14:30 10/17/22 14:31 DC 10/17/22 14:35 500 MG Promethazine HCl 25 mg ONCE ONCE PO 10/17/22 14:30 10/17/22 14:31 DC 10/17/22 14:36 25 MG Vital Signs/I&O 10/17/22 13:20 Temp 36.8 Pulse 79 Resp 18 B/P (MAP) 149/84 (105) Pulse Ox 98 O2 Delivery Room Air Blood Pressure Mean: 105 Progress Progress Note : Time: 13:43 Progress Note Patient seen and evaluated by me, 47-year-old female with right temporal headache. Evaluation today includes physical exam. Based on history and physical differential diagnosis includes migraine variant, temporal arteritis, subarachnoid hemorrhage (low suspicion), brain tumor. Patient's exam is nonf ocal for any neurologic deficit. Low clinical suspicion for subarachnoid or brain tumor. She does have right temporal artery tenderness to palpation. We will check a sed rate. Also am going to get basic labs CBC chemistry. Treating her with Toradol, Reglan and Benadryl. Departure Impression Primary Impression: Migraine equivalent Disposition: 01 HOME, SELF-CARE Condition: Improved Departure-Patient Inst. Decision time for Depature: 15:40 Referrals: [facility] (PCP/Family) Primary Care Physician Patient Instructions: Migraines in Adults Add. Discharge Instructions: Drink plenty of fluids to stay well-hydrated. Take the naproxen 1 500 mg tablet twice a day for 5 days. Always take this medication with food. Do not take other ibuprofen containing products while taking this. Zofran, 4 mg every 8 hours as needed for nausea. If you develop any new, concerning or emergent symptoms please return to the emergency room for reevaluation. Please call your primary care physician tomorrow for a follow-up appointment within 1 week. Scripts Naproxen (Naprosyn) 500 Mg Tablet 500 MG PO BID for 5 Days, #10 TAB 0 Refills Prov: DAGOBERTO CHAVEZ MD 10/17/22 Ondansetron (Ondansetron Odt) 4 Mg Tab.rapdis 4 MG SL Q8H PRN for NAUSEA/VOMITING, #12 TAB Prov: DAGOBERTO CHAVEZ MD 10/17/22 Work/School Note: Work Release Form Date Seen in the Emergency Department: Oct 17, 2022 Return to Work: Oct 18, 2022 Copy Copies To 1: MERY SUMMERS KATHRYN M MD Oct 17, 2022 13:44
[2022-10-17] MEDS ORDERED: METOCLOPRAMIDE INJ 10 MG/2 ML (REGLAN) IVP ONE (13:45)
[2022-10-17] MEDS ORDERED: KETOROLAC 15 MG/ML VIAL IVP ONE (13:45)
[2022-10-17] MEDS ORDERED: diphenhydrAMINE 50 MG/ML INJ (BENADRYL) IVP ONE (13:45)
[2022-10-17] MEDS ORDERED: NAPROXEN 250 MG (NAPROSYN) TABLET PO ONE (14:30)
[2022-10-17] MEDS ORDERED: PROMETHAZINE 25 MG (PHENERGAN) TAB PO ONE (14:30)
[2022-10-17 14:41] LABS: BASOPHILS % (AUTO) 0 % (0-10); EOSINOPHILS # (AUTO) 0.1 10^3/uL (0.0-0.3); EOSINOPHILS % (AUTO) 2 % (0-10); HEMATOCRIT 44 % (35-52); HEMOGLOBIN 15.1 g/dL (11.5-16.0); LYMPHOCYTES # (AUTO) 3.3 10^3/uL (1.0-4.0); LYMPHOCYTES % (AUTO) 49 % (12-44); MEAN CORPUSCULAR HEMOGLOBIN 31 pg (25-34); MEAN CORPUSCULAR HGB CONC 34 g/dL (32-36); MEAN CORPUSCULAR VOLUME 90 fL (80-99); MEAN PLATELET VOLUME 9.6 fL (9.0-12.2); MONOCYTES # (AUTO) 0.4 10^3/uL (0.0-1.0); MONOCYTES % (AUTO) 7 % (0-12); NEUTROPHILS # (AUTO) 2.8 10^3/uL (1.8-7.8); NEUTROPHILS % (AUTO) 42 % (42-75); PLATELET COUNT 238 10^3/uL (130-400); WHITE BLOOD COUNT 6.7 10^3/uL (4.3-11.0)
[2022-10-17 15:03] LABS: CALCIUM 9.5 MG/DL (8.5-10.1)
[2022-10-17 15:06] LABS: ERYTHROCYTE SEDIMENTATION RATE 5 MM/HR (0-20)
[2022-10-17 15:08] LABS: CREATININE SERUM 0.71 MG/DL (0.60-1.30)
[2022-10-17] MEDS ORDERED: ONDA4TAB11 SL (15:42)
[2022-10-17] MEDS ORDERED: NAPR-1071 PO (15:42)
[2022-10-17 15:47] VITALS: BP 138/85
== END 2022-10-17 15:50 | disposition home or self-care (01) ==
LOC: EDUNIT# 13:11 → ER 13:13
DX: G43.909 Migraine, unspecified, not intractable, without status migrainosus (principal); F17.210 Nicotine dependence, cigarettes, uncomplicated; Z28.310 Unvaccinated for COVID-19
CPT/HCPCS: 36415; 80048; 85025; 85652; 99283